=== PATIENT | female | born 1965 | race Caucasian/White ===

== ENCOUNTER 2020-09-18 20:41 | Inpatient (IN) | payer MEDICAID ==
[~2020-09-18] VITALS: Ht 170.2 cm; Wt 48.4 kg
[2020-09-18] MEDS ORDERED: normal saline 1000ML IV soln IV ONE (21:05)
[2020-09-18 21:44] LABS: BASOPHILS % (AUTO) 0.5 % (0-1); EOSINOPHILS # (AUTO) 0.3 X10'3 (0-0.9); EOSINOPHILS % (AUTO) 4.7 % (0-6); HEMATOCRIT 44.9 % (35.0-45.0); HEMOGLOBIN 15.4 g/dl (12.0-16.0); LYMPHOCYTES # (AUTO) 1.2 X10'3 (1.1-4.8); LYMPHOCYTES % (AUTO) 19.5 % (21-51); MEAN CORPUSCULAR HGB CONC 34.3 g/dL (33.0-36.5); MEAN CORPUSCULAR VOLUME 101.9 FL (78-98); MONOCYTES # (AUTO) 0.4 X10'3 (0-0.9); MONOCYTES % (AUTO) 5.7 % (2-12); NEUTROPHILS # (AUTO) 4.3 X10'3 (1.8-7.7); NEUTROPHILS % (AUTO) 69.6 % (42-75); PLATELET COUNT 374 X10'3 (140-440); RED BLOOD COUNT 4.41 X10'6 (4.20-5.60); RED CELL DISTRIBUTION WIDTH 12.8 % (11.5-14.5); WHITE BLOOD COUNT 6.2 X10'3 (4.5-11.0)
[2020-09-18 21:50] LABS: ALANINE AMINOTRANSFERASE 19 U/L (12-78); ALBUMIN 3.6 G/DL (3.4-5.0); ALBUMIN/GLOBULIN RATIO 0.9 (1.1-1.5); ALKALINE PHOSPHATASE 65 IU/L (46-116); ANION GAP 14 (8-16); ASPARTATE AMINO TRANSFERASE 10 U/L (10-37); BILIRUBIN,TOTAL 0.3 MG/DL (0.1-1.0); BLOOD UREA NITROGEN 17 MG/DL (7-18); BUN/CREATININE RATIO 23.6 (6.6-38.0); CALCIUM 8.3 MG/DL (8.5-10.1); CHLORIDE 99 MMOL/L (99-107); CREATININE 0.72 MG/DL (0.40-0.90); GLUCOSE 189 MG/DL (70-104); MAGNESIUM 1.8 MG/DL (1.5-2.4); POTASSIUM 3.7 MMOL/L (3.5-5.1); SODIUM 136 MMOL/L (135-145); TOTAL CARBON DIOXIDE 23.4 MMOL/L (24-32); TOTAL PROTEIN 7.5 G/DL (6.4-8.2); eGFR 85 ML/MIN
[2020-09-18 22:29] LABS: URINE HCG NEGATIVE (NEG)
[2020-09-18 22:38] LABS: COLOR,URINE YELLOW (Yellow); GLUCOSE, URINE NEGATIVE (Neg); KETONES,URINE 40 mg/dl (Neg); LEUKOCYTE ESTERASE ,URINE NEGATIVE (Neg); NITRITES, URINE NEGATIVE (Neg); OCCULT BLOOD,URINE NEGATIVE (Neg); PROTEIN,URINE NEGATIVE (Neg); UROBILINOGEN,URINE 0.2 E.U/dL (0.2-1.0)
[2020-09-18 22:54] LABS: UA COLLECTION TYPE OTHER
[2020-09-18 22:55] LABS: CLARITY,URINE SLIGHTLY CLOUDY (Clear)
[2020-09-18 22:56] LABS: AMORPHOUS PHOSPHATES 4+; BACTERIA,URINE NONE SEEN /HPF (Neg); RBC,URINE NONE SEEN /HPF (0-2); SQUAMOUS EPITHELIAL CELL,UR FEW /LPF (FEW); WBC,URINE 0-4 /HPF (0-4)
[2020-09-18 22:57] LABS: TRANSITIONAL EPI CELLS,URINE FEW /HPF
[2020-09-18] MEDS ORDERED: AMA1T PO (23:11)
[2020-09-18] MEDS ORDERED: CHOL10006 PO (23:11)
[2020-09-18] MEDS ORDERED: RISP0.5T74 PO (23:11)
[2020-09-18] MEDS ORDERED: TOLN30CR TP (23:11)
[2020-09-18] MEDS ORDERED: MULT-381 PO (23:11)
[2020-09-18] MEDS ORDERED: DIAZ10TA4 PO (23:11)
[2020-09-18] MEDS ORDERED: METF500T PO (23:11)
[2020-09-18] MEDS ORDERED: BUSP10TA11 PO (23:11)
[2020-09-18] MEDS ORDERED: SIME125C PO (23:11)
[2020-09-18] MEDS ORDERED: SERT100T PO (23:11)
[2020-09-18] MEDS ORDERED: LEVO25TA2 PO (23:11)
[2020-09-18] MEDS ORDERED: ATOR20TA PO (23:11)
[2020-09-18] MEDS ORDERED: PIOG15TA8 PO (23:11)
[2020-09-18] MEDS ORDERED: OXCA300T16 PO (23:11)
[2020-09-18] MEDS ORDERED: NORE-33 PO (23:11)
--- NOTE | 2020-09-18 23:25 | NUR ---
Patient requesting water or ice chips- encouraged to wait for admission provider who should be coming by soon for patient assessment and discussion of plan of care.
[2020-09-19] MEDS ORDERED: acetaminophen 325mg tablet PO PRN ×2 (00:05)
[2020-09-19] MEDS ORDERED: mag hydrox/Alum hydrox/simeth 30ml oral suspension PO PRN (00:05)
[2020-09-19] MEDS ORDERED: bisacodyl 10mg suppository rectal RC PRN ×2 (00:05→04:30)
[2020-09-19] MEDS ORDERED: potassium Cl 40MEQ/1/2NS 520ml 520 ML IV PRN (00:05)
[2020-09-19] MEDS ORDERED: magnesium 4gm in 100ml NS 100 ML IV PRN (00:05)
[2020-09-19] MEDS: metoprolol tartrate 12.5mg (1/2 tablet) PO SCH ×4 (00:05→19:34)
[2020-09-19] MEDS ORDERED: metoclopramide 5 mg/ml inj IV PRN (00:05)
[2020-09-19] MEDS ORDERED: HYDROcodone/acetaminophen 10/325mg tab PO PRN (00:05)
[2020-09-19] MEDS ORDERED: magnesium Cl slow-release 64mg tablet PO PRN (00:05)
[2020-09-19] MEDS ORDERED: magnesium hydroxide 30ml (MOM) UD suspension PO PRN (00:05)
[2020-09-19] MEDS ORDERED: HYDROcodone/acetaminophen 5mg/325mg tablet PO PRN (00:05)
[2020-09-19] MEDS ORDERED: magnesium 2GM in 50ml NS 50 ML IV PRN (00:05)
[2020-09-19] MEDS ORDERED: potassium Cl 20 mEq SR tablet PO PRN ×2 (00:05)
[2020-09-19] MEDS: normal saline 1000ml 1,000 ML IV SCH ×3 (01:20→20:18)
--- NOTE | 2020-09-19 01:50 | NUR ---
DISCUSSED CONCERN FOR ASPIRATION W/ DR. ANDRADE. OKAY TO GIVE PO MEDS ORDERED PER MD. ATTEMPTED TO ADMINISTER MEDICATION PO AND PT ASPIRATED AND STARTED TO VOMIT. MEDICATION WAS SEEN IN VOMIT, PT DID NOT INGEST MED.
--- NOTE | 2020-09-19 01:58 | NUR ---
PAGER ID: [phone] MESSAGE: [phone] Shey Palmer: Was unable to swallow Lopressor in ER, can I give a one time dose IV? Patient is diabetic can I add hyperglycemia protocol? Jerrica LEO 2230
[2020-09-19 02:00] VITALS: BP 135/77
[2020-09-19] MEDS ORDERED: dextrose ORAL solution 15 GM/59 ML bottle PO PRN ×2 (02:05)
[2020-09-19] MEDS ORDERED: glucagon, human recombinant 1mg kit SUBCUT PRN (02:05)
[2020-09-19] MEDS ORDERED: MESSAGE TO PHARMACY PO ONE (02:05)
[2020-09-19] MEDS ORDERED: dextrose 50%-water 50ml dispensing syringe IV PRN (02:05)
[2020-09-19] MEDS: metoprolol tartrate 1mg/ml inj IV PRN ×2 (02:24→03:26)
[2020-09-19 03:28] LABS: HEMOGLOBIN A1C 6.5 % (4.5-6.2)
--- NOTE | 2020-09-19 04:19 | NUR ---
PAGER ID: [phone] MESSAGE: [phone] Shey Palmer: Patient on 5 L oxygen sating at 88%, need an order. She also came up with a zarate, can we keep it in? Patient is too weak to ambulate or turn. Jerrica LEO [id number]
[2020-09-19] MEDS ORDERED: bisacodyl 10mg suppository rectal RC STA (04:28)
[2020-09-19] MEDS ORDERED: mineral oil 133ml enema RC PRN (04:30)
[2020-09-19] MEDS ORDERED: LIDOcaine 2% 10ml TOPICAL JELLY (Urojet) TP ONE (04:30)
[2020-09-19] MEDS ORDERED: acetaminophen 325mg rectal suppository RC ONE (04:50)
[2020-09-19] MEDS ORDERED: acetaminophen 650mg rectal suppository RC ONE (04:55)
[2020-09-19 04:59] LABS: ABG BASE EXCESS -4.3 mmol/L (-2.0-2.0); ABG HCO3 20.1 mmol/L (22.0-26.0); ABG PCO2 (T) 37.5 mmHg (32.0-45.0); ABG PO2 (T) 65.6 mmHg (75.0-100.0); ALLEN'S TEST POSITIVE; FCOHb 0.2 % (0.0-3.9); FLOW 5 L/min; FMetHb 0.2 % (0.0-1.5); FO2Hb 89.6 % (94-97); PATIENT TEMPERATURE 38.6; TOTAL HEMOGLOBIN 15.7 G/dl (12.0-16.0)
--- NOTE | 2020-09-19 05:51 | NUR ---
END NOC NOTE Patient has come onto the unit with shortness of breath and unable to clear secretions from her throat. MD Padilla was notified of the low saturations even after NT suctioning. ABG was done and patient was put on a High Flow at 10L, patient saturations at 93%. Patient was running a fever of 101.6 deg F in the axillary at the same time, Tylenol suppository was administered. Will continue to monitor patient.
[2020-09-19 06:00] VITALS: BP 131/72
--- NOTE | 2020-09-19 06:13 | NUR ---
DAVID SILVESTRE [phone]
--- NOTE | 2020-09-19 06:49 | NUR ---
Patient in room PCU 3016. I have received report from FELIPA Maldonado and had the opportunity to ask questions and assume patient care.
--- NOTE | 2020-09-19 06:53 | NUR ---
Problems reprioritized. Patient report given, questions answered & plan of care reviewed with Marisela LEO.
[2020-09-19] MEDS: levoTHYROXINE 25mcg tablet PO SCH (07:00)
[2020-09-19] MEDS: pioglitazone 15mg tablet PO SCH (07:41)
[2020-09-19] MEDS: oxcarbazepine 150mg tablet PO SCH ×2 (07:41→19:35)
[2020-09-19] MEDS: busPIRone 5mg tablet PO SCH ×3 (07:41→21:00)
[2020-09-19] MEDS: sertraline 50mg tablet PO SCH (07:41)
[2020-09-19] MEDS: NORETHINDRONE ETHINYL ESTRAD PO SCH (07:41)
[2020-09-19] MEDS: pantoprazole 40 MG vial IV SCH (07:42)
[2020-09-19] MEDS: heparin, porcine 5000 units/ml vial SQ SCH ×2 (07:43→19:25)
[2020-09-19] MEDS: ondansetron/PF 4mg/2ml inj IV PRN (07:45)
[2020-09-19] MEDS ORDERED: diazepam 5mg tablet PO PRN (08:00)
[2020-09-19] MEDS: K and/or MAG REPLACEMENT MC SCH ×2 (08:00→20:00)
--- NOTE | 2020-09-19 08:31 | NUR ---
Noted pt s/p BSS today with ST recs NPO though pt continues on clear liquid diet. D/w dietary and RN recommendation to change diet order to NPO per ST recs. Will continue to follow. Addendum: 09/19/20 at [address] Amended: Links added.
[2020-09-19 09:12] LABS: H PYLORI ANTIBODY POSITIVE (Neg)
[2020-09-19] MEDS: insulin Lispro (HumaLOG) vial - multi-dose SQ SCH ×2 (10:03→19:25)
[2020-09-19 11:00] VITALS: BP 140/63
[2020-09-19] MEDS: levoFLOXACIN-Levaquin 500mg/D5 100 ML IV SCH (12:47)
[2020-09-19 15:00] VITALS: BP 129/68
[2020-09-19 18:00] VITALS: BP 146/65
[2020-09-19] MEDS: atorvastatin 20mg tablet PO SCH (21:00)
[2020-09-19] MEDS ORDERED: temazepam 15mg capsule PO PRN (21:00)
[2020-09-19] MEDS: insulin glargine (Lantus) pen - multi-dose SQ SCH (21:00)
[2020-09-19] MEDS: risperiDONE 0.5mg tablet PO SCH (21:00)
[2020-09-19 22:00] VITALS: BP 148/74
[2020-09-20] VITALS (7 sets, daily range): BP systolic 127–145; BP diastolic 59–87
[2020-09-20 06:05] LABS: BASOPHILS % (AUTO) 0.2 % (0-1); EOSINOPHILS % (AUTO) 0.1 % (0-6); HEMATOCRIT 42.5 % (35.0-45.0); HEMOGLOBIN 14.7 g/dl (12.0-16.0); LYMPHOCYTES # (AUTO) 0.9 X10'3 (1.1-4.8); LYMPHOCYTES % (AUTO) 12.5 % (21-51); MEAN CORPUSCULAR HEMOGLOBIN 35.2 PG (27.0-31.0); MEAN CORPUSCULAR HGB CONC 34.6 g/dL (33.0-36.5); MEAN CORPUSCULAR VOLUME 101.8 FL (78-98); MONOCYTES # (AUTO) 0.5 X10'3 (0-0.9); NEUTROPHILS # (AUTO) 5.8 X10'3 (1.8-7.7); NEUTROPHILS % (AUTO) 80.2 % (42-75); PLATELET COUNT 271 X10'3 (140-440); RED BLOOD COUNT 4.17 X10'6 (4.20-5.60); RED CELL DISTRIBUTION WIDTH 13.2 % (11.5-14.5); WHITE BLOOD COUNT 7.2 X10'3 (4.5-11.0)
[2020-09-20] MEDS: normal saline 1000ml 1,000 ML IV SCH ×2 (06:05→16:18)
--- NOTE | 2020-09-20 06:15 | NUR ---
Patient in room PCU 3016. I have received report from FELIPA Wing and had the opportunity to ask questions and assume patient care.
[2020-09-20 06:18] LABS: ALANINE AMINOTRANSFERASE 14 U/L (12-78); ALBUMIN 2.6 G/DL (3.4-5.0); ALBUMIN/GLOBULIN RATIO 0.6 (1.1-1.5); ALKALINE PHOSPHATASE 48 IU/L (46-116); ANION GAP 20 (8-16); ASPARTATE AMINO TRANSFERASE 14 U/L (10-37); BILIRUBIN,TOTAL 0.5 MG/DL (0.1-1.0); BLOOD UREA NITROGEN 12 MG/DL (7-18); BUN/CREATININE RATIO 16.9 (6.6-38.0); CALCIUM 8.1 MG/DL (8.5-10.1); CHLORIDE 107 MMOL/L (99-107); CREATININE 0.71 MG/DL (0.40-0.90); GLUCOSE 162 MG/DL (70-104); SODIUM 144 MMOL/L (135-145); TOTAL CARBON DIOXIDE 17.4 MMOL/L (24-32); TOTAL PROTEIN 6.7 G/DL (6.4-8.2); eGFR 86 ML/MIN
--- NOTE | 2020-09-20 06:21 | NUR ---
Problems reprioritized. Patient report given, questions answered & plan of care reviewed with FELIPA Antonio.
[2020-09-20 06:24] LABS: POTASSIUM 2.8 MMOL/L (3.5-5.1)
--- NOTE | 2020-09-20 06:40 | NUR ---
Notified Dr Casanova of low serum K+: PAGER ID: [phone] MESSAGE: Spencer Hopper 3016A CRIT K+ 2.8. Will begin replacement protocol. Marisela [phone]
[2020-09-20] MEDS: levoTHYROXINE 25mcg tablet PO SCH (07:00)
--- NOTE | 2020-09-20 07:26 | NUR ---
Paged Dr Casanova re: pt HR: PAGER ID: [phone] MESSAGE: Spencer Hopper 3016A HR 160s. NPO. Failed swallow eval again today. Metoprolol ordered PO. Can we change to IV? Marisela [phone]
[2020-09-20] MEDS: levoFLOXACIN-Levaquin 500mg/D5 100 ML IV SCH (07:31)
[2020-09-20] MEDS: heparin, porcine 5000 units/ml vial SQ SCH ×2 (07:32→19:37)
[2020-09-20] MEDS: pantoprazole 40 MG vial IV SCH (07:32)
[2020-09-20] MEDS: potassium Cl 40MEQ/1/2NS 520ml 520 ML IV PRN ×2 (07:32→13:47)
[2020-09-20] MEDS: pioglitazone 15mg tablet PO SCH (07:33)
[2020-09-20] MEDS: metoprolol tartrate 12.5mg (1/2 tablet) PO SCH ×2 (07:33→19:51)
[2020-09-20] MEDS: NORETHINDRONE ETHINYL ESTRAD PO SCH (07:33)
[2020-09-20] MEDS: busPIRone 5mg tablet PO SCH ×3 (07:33→21:00)
[2020-09-20] MEDS: ondansetron/PF 4mg/2ml inj IV PRN (07:33)
[2020-09-20] MEDS: oxcarbazepine 150mg tablet PO SCH ×2 (07:34→19:51)
[2020-09-20] MEDS: sertraline 50mg tablet PO SCH (07:34)
[2020-09-20] MEDS ORDERED: metoprolol tartrate 1mg/ml inj IV ONE (08:00)
[2020-09-20] MEDS: K and/or MAG REPLACEMENT MC SCH ×2 (08:00→19:52)
[2020-09-20] MEDS: diltiazem-NS 100mg/100ml 100 ML IV SCH ×2 (10:53→23:08)
[2020-09-20] MEDS: levetiracetam inj 500 MG in normal saline 100ml IV soln 95 ML IV SCH ×2 (10:54→19:37)
[2020-09-20] MEDS: albuterol 2.5 MG/3 ML nebule NEB SCH ×4 (11:41→22:54)
[2020-09-20] MEDS: insulin Lispro (HumaLOG) vial - multi-dose SQ SCH (13:46)
[2020-09-20] MEDS ORDERED: iohexol 350MG/ML 100ml bottle IV ONE (14:51)
[2020-09-20] MEDS: metoprolol tartrate 1mg/ml inj IV PRN (16:18)
[2020-09-20] MEDS: lactobacillus rhamnosus 10,000 MMU CELLS/CAPSULE PO SCH (19:51)
[2020-09-20] MEDS: diazepam inj 5 MG/ML inj. IV PRN (20:09)
[2020-09-20] MEDS: risperiDONE 0.5mg tablet PO SCH (21:00)
[2020-09-20] MEDS: insulin glargine (Lantus) pen - multi-dose SQ SCH (21:00)
[2020-09-20] MEDS: atorvastatin 20mg tablet PO SCH (21:00)
[2020-09-20] MEDS ORDERED: LORazepam 2 mg/ml vial IV ONE (22:50)
[2020-09-21] VITALS (9 sets, daily range): BP systolic 120–141; BP diastolic 54–69
[2020-09-21] MEDS: albuterol 2.5 MG/3 ML nebule NEB SCH ×6 (02:30→23:07)
[2020-09-21] MEDS: normal saline 1000ml 1,000 ML IV SCH ×2 (03:48→17:09)
--- NOTE | 2020-09-21 06:10 | NUR ---
Problems reprioritized. Patient report given, questions answered & plan of care reviewed with FELIPA Ugalde.
[2020-09-21 06:28] LABS: BASOPHILS % (AUTO) 0.5 % (0-1); EOSINOPHILS % (AUTO) 0 % (0-6); HEMOGLOBIN 13.4 g/dl (12.0-16.0); LYMPHOCYTES # (AUTO) 0.9 X10'3 (1.1-4.8); LYMPHOCYTES % (AUTO) 17.9 % (21-51); MEAN CORPUSCULAR HGB CONC 34.3 g/dL (33.0-36.5); MEAN PLATELET VOLUME 7.4 FL (7.4-10.4); MONOCYTES # (AUTO) 0.4 X10'3 (0-0.9); MONOCYTES % (AUTO) 8.1 % (2-12); NEUTROPHILS # (AUTO) 3.6 X10'3 (1.8-7.7); NEUTROPHILS % (AUTO) 73.5 % (42-75); PLATELET COUNT 230 X10'3 (140-440); RED BLOOD COUNT 3.83 X10'6 (4.20-5.60); RED CELL DISTRIBUTION WIDTH 13.3 % (11.5-14.5); WHITE BLOOD COUNT 4.9 X10'3 (4.5-11.0)
[2020-09-21 06:39] LABS: ALANINE AMINOTRANSFERASE 13 U/L (12-78); ALBUMIN 2.2 G/DL (3.4-5.0); ALBUMIN/GLOBULIN RATIO 0.5 (1.1-1.5); ALKALINE PHOSPHATASE 45 IU/L (46-116); ANION GAP 13 (8-16); ASPARTATE AMINO TRANSFERASE 6 U/L (10-37); BILIRUBIN,TOTAL 0.5 MG/DL (0.1-1.0); BLOOD UREA NITROGEN 10 MG/DL (7-18); BUN/CREATININE RATIO 13.2 (6.6-38.0); CALCIUM 8.4 MG/DL (8.5-10.1); CHLORIDE 113 MMOL/L (99-107); CREATININE 0.76 MG/DL (0.40-0.90); GLUCOSE 249 MG/DL (70-104); MAGNESIUM 2.2 MG/DL (1.5-2.4); PHOSPHORUS 1.4 MG/DL (2.3-4.5); POTASSIUM 3.7 MMOL/L (3.5-5.1); SODIUM 146 MMOL/L (135-145); TOTAL CARBON DIOXIDE 19.6 MMOL/L (24-32); TOTAL PROTEIN 6.5 G/DL (6.4-8.2); eGFR 80 ML/MIN
[2020-09-21 07:08] LABS: PLATELET ESTIMATE NORMAL; TOTAL CELLS COUNTED 100
--- NOTE | 2020-09-21 07:21 | NUR ---
Patient in room PCU 3011. I have received report from ebony fairchild and had the opportunity to ask questions and assume patient care.
[2020-09-21] MEDS: NORETHINDRONE ETHINYL ESTRAD PO SCH (08:00)
[2020-09-21] MEDS: lactobacillus rhamnosus 10,000 MMU CELLS/CAPSULE PO SCH ×2 (08:00→20:00)
[2020-09-21] MEDS: sertraline 50mg tablet PO SCH (08:00)
[2020-09-21] MEDS: K and/or MAG REPLACEMENT MC SCH ×2 (08:00→20:00)
[2020-09-21] MEDS: metoprolol tartrate 12.5mg (1/2 tablet) PO SCH ×2 (08:00→20:00)
[2020-09-21] MEDS: oxcarbazepine 150mg tablet PO SCH ×2 (08:00→20:00)
[2020-09-21] MEDS: pioglitazone 15mg tablet PO SCH (08:00)
[2020-09-21] MEDS: busPIRone 5mg tablet PO SCH ×3 (08:00→22:42)
[2020-09-21] MEDS: insulin Lispro (HumaLOG) vial - multi-dose SQ SCH (08:37)
[2020-09-21] MEDS: pantoprazole 40 MG vial IV SCH (08:39)
[2020-09-21] MEDS: heparin, porcine 5000 units/ml vial SQ SCH ×2 (08:41→19:59)
[2020-09-21] MEDS: levetiracetam inj 500 MG in normal saline 100ml IV soln 95 ML IV SCH ×2 (08:42→21:35)
[2020-09-21] MEDS: levoTHYROXINE sod inj. 100mcg/5 ml vial IV SCH (08:48)
--- NOTE | 2020-09-21 09:31 | NUR ---
DM consult: Pt with A1c 6.5%, DM education not warranted at this time. Noted that pt has continued to fail BSS with [facility] alternative nutrition following BSS today. Clear liquid diet remains active. D/w RN recommendation to make pt NPO in EMR per [facility]. RN states will discuss EN with MD. IF EN recommend continuous Jevity 1.2 with goal rate of 60 mL/hr to begin at 20 mL/hr and advance by 20 mL Q8H as tolerated with 100 mL water flush Q4H. Will follow closely and monitor for TF consult if within patient's plan of care. Addendum: 09/21/20 at [address] Amended: Links added.
[2020-09-21] MEDS: diazepam inj 5 MG/ML inj. IV PRN ×2 (10:08→16:50)
--- NOTE | 2020-09-21 11:40 | NUR ---
aprox this time texted md solorio no call back yet at [phone].PAGER ID: [phone] MESSAGE: [phone] Verónica Palmer : what's our nutrition plan? failed swallow again today. Aftab LEO [phone]
[2020-09-21] MEDS: piperacillin/tazo 3.375gm/50ml 50 ML IV SCH (17:08)
--- NOTE | 2020-09-21 18:15 | NUR ---
Patient in room PCU 3011. I have received report from Aftab LEO and had the opportunity to ask questions and assume patient care. Patient awake and present for bedside report. Patient denied complaints and had the opportunity to ask questions.
--- NOTE | 2020-09-21 18:35 | NUR ---
Problems reprioritized. Patient report given, questions answered & plan of care reviewed with rei fairchild.
[2020-09-21] MEDS: diltiazem-NS 100mg/100ml 100 ML IV SCH (18:57)
[2020-09-21] MEDS: risperiDONE 0.5mg tablet PO SCH (21:00)
[2020-09-21] MEDS: atorvastatin 20mg tablet PO SCH (21:00)
[2020-09-21] MEDS: insulin glargine (Lantus) pen - multi-dose SQ SCH (21:00)
--- NOTE | 2020-09-21 23:01 | NUR ---
Spoke to Dr. Ovalles on the phone regarding nutrition and Corpak placement and plan for feeding tube on Thursday with Gastrografin on Thursday night. Informed him patient has been NPO since 09/19, was not able to find nutrition plan between now and Thursday. No new orders from Dr. Ovalles, he would like me to follow up with day hospitalist. Will inform day nurse.
[2020-09-22] VITALS (8 sets, daily range): BP systolic 114–145; BP diastolic 57–80
--- NOTE | 2020-09-22 00:01 | NUR ---
Spoke to Dr. Ovalles on the phone regarding patient screaming out and PRN Valium BID has already been given twice on day shift. Dr. Ovalles ordered 5mg IV Valium once now.
[2020-09-22] MEDS ORDERED: diazepam inj 5 MG/ML inj. IV ONE (00:05)
[2020-09-22] MEDS: piperacillin/tazo 3.375gm/50ml 50 ML IV SCH ×3 (00:21→18:00)
[2020-09-22] MEDS: albuterol 2.5 MG/3 ML nebule NEB SCH ×6 (02:58→23:03)
[2020-09-22 03:19] LABS: BASOPHILS % (AUTO) 0.4 % (0-1); EOSINOPHILS % (AUTO) 0.1 % (0-6); HEMATOCRIT 37.8 % (35.0-45.0); HEMOGLOBIN 12.8 g/dl (12.0-16.0); MEAN CORPUSCULAR HEMOGLOBIN 34.8 PG (27.0-31.0); MEAN CORPUSCULAR HGB CONC 33.9 g/dL (33.0-36.5); MEAN CORPUSCULAR VOLUME 102.4 FL (78-98); MEAN PLATELET VOLUME 7.4 FL (7.4-10.4); MONOCYTES # (AUTO) 0.4 X10'3 (0-0.9); MONOCYTES % (AUTO) 9.1 % (2-12); NEUTROPHILS # (AUTO) 3.2 X10'3 (1.8-7.7); NEUTROPHILS % (AUTO) 69.4 % (42-75); PLATELET COUNT 208 X10'3 (140-440); RED BLOOD COUNT 3.69 X10'6 (4.20-5.60); RED CELL DISTRIBUTION WIDTH 13.1 % (11.5-14.5); WHITE BLOOD COUNT 4.6 X10'3 (4.5-11.0)
[2020-09-22 03:34] LABS: ALANINE AMINOTRANSFERASE 9 U/L (12-78); ALBUMIN 2.2 G/DL (3.4-5.0); ALBUMIN/GLOBULIN RATIO 0.5 (1.1-1.5); ALKALINE PHOSPHATASE 44 IU/L (46-116); ANION GAP 16 (8-16); ASPARTATE AMINO TRANSFERASE 6 U/L (10-37); BILIRUBIN,TOTAL 0.6 MG/DL (0.1-1.0); BLOOD UREA NITROGEN 11 MG/DL (7-18); BUN/CREATININE RATIO 14.9 (6.6-38.0); CALCIUM 8.3 MG/DL (8.5-10.1); CHLORIDE 115 MMOL/L (99-107); CREATININE 0.74 MG/DL (0.40-0.90); GLUCOSE 273 MG/DL (70-104); MAGNESIUM 2.2 MG/DL (1.5-2.4); POTASSIUM 3.3 MMOL/L (3.5-5.1); SODIUM 153 MMOL/L (135-145); TOTAL CARBON DIOXIDE 22.2 MMOL/L (24-32); TOTAL PROTEIN 6.6 G/DL (6.4-8.2); eGFR 82 ML/MIN
[2020-09-22 03:42] LABS: PHOSPHORUS 1.2 MG/DL (2.3-4.5)
--- NOTE | 2020-09-22 03:46 | NUR ---
Spoke to Dr. Ovalles on the phone regarding critical value phosphorus 1.2. Dr. Ovalles order phosphorus replacement IV due to NPO status. Dr. Ovalles comfortable using potassium phosphorus since potassium is 3.3.
[2020-09-22] MEDS ORDERED: potassium phosphate inj 30 MMOL in normal saline 500ml IV soln 500 ML IV ONE ×2 (03:50→16:30)
[2020-09-22] MEDS ORDERED: acetaminophen 650mg rectal suppository RC PRN (04:05)
--- NOTE | 2020-09-22 04:55 | NUR ---
Patient did not sleep well this evening. Patient complaining of wanting water and ice. Patient mouth swabbed with sponge and patient coughed on small amount of water from sponge. Oral care provided and suction provided to prevent aspiration whenever she complained of thirst. Re-educated patient regarding aspiration risk. Valium given during the night for anxiety/agitation, relief was short lived, patient calling out most of the shift.
[2020-09-22 05:12] LABS: PLATELET ESTIMATE NORMAL; TOTAL CELLS COUNTED 100
--- NOTE | 2020-09-22 06:22 | NUR ---
Problems reprioritized. Patient report given, questions answered & plan of care reviewed with Aftab LEO.
--- NOTE | 2020-09-22 07:10 | NUR ---
Patient in room PCU 3011. I have received report from Patience LEO and had the opportunity to ask questions and assume patient care.
[2020-09-22] MEDS: normal saline 1000ml 1,000 ML IV SCH (07:39)
[2020-09-22] MEDS: oxcarbazepine 150mg tablet PO SCH ×2 (08:00→20:00)
[2020-09-22] MEDS: busPIRone 5mg tablet PO SCH ×3 (08:00→20:50)
[2020-09-22] MEDS: metoprolol tartrate 12.5mg (1/2 tablet) PO SCH ×2 (08:00→20:00)
[2020-09-22] MEDS: sertraline 50mg tablet PO SCH (08:00)
[2020-09-22] MEDS: pioglitazone 15mg tablet PO SCH (08:00)
[2020-09-22] MEDS: NORETHINDRONE ETHINYL ESTRAD PO SCH (08:00)
[2020-09-22] MEDS: K and/or MAG REPLACEMENT MC SCH ×3 (08:00→20:00)
[2020-09-22] MEDS: lactobacillus rhamnosus 10,000 MMU CELLS/CAPSULE PO SCH ×2 (08:00→20:00)
[2020-09-22] MEDS: insulin Lispro (HumaLOG) vial - multi-dose SQ SCH ×3 (08:05→22:45)
[2020-09-22] MEDS: pantoprazole 40 MG vial IV SCH (08:06)
[2020-09-22] MEDS: heparin, porcine 5000 units/ml vial SQ SCH ×2 (08:07→20:27)
[2020-09-22] MEDS: levetiracetam inj 500 MG in normal saline 100ml IV soln 95 ML IV SCH ×2 (08:08→21:35)
--- NOTE | 2020-09-22 11:00 | NUR ---
MD edward rounded aboutthis time, reviewed labs, fluids and nutrition. ordes received for ivf , discussed possible tf but declined for now. plan to still place peg thursday.
[2020-09-22] MEDS: potassium cl 20mEq in 1/2 NS 1,000 ML IV SCH ×2 (12:59→18:40)
[2020-09-22] MEDS: diltiazem-NS 100mg/100ml 100 ML IV SCH (13:23)
[2020-09-22] MEDS ORDERED: LORazepam 2 mg/ml vial IV PRN (13:40)
[2020-09-22 15:33] LABS: PHOSPHORUS 1.5 MG/DL (2.3-4.5); POTASSIUM 3.2 MMOL/L (3.5-5.1)
[2020-09-22] MEDS ORDERED: potassium Cl 20 mEq SR tablet PO PRN ×2 (16:25)
[2020-09-22] MEDS ORDERED: potassium Cl 40MEQ/1/2NS 520ml 520 ML IV PRN (16:25)
[2020-09-22] MEDS ORDERED: magnesium 4gm in 100ml NS 100 ML IV PRN (16:25)
[2020-09-22] MEDS ORDERED: magnesium Cl slow-release 64mg tablet PO PRN (16:25)
--- NOTE | 2020-09-22 16:27 | NUR ---
PAGER ID: [phone] MESSAGE: [phone] johnny marcos: K and Phos replaced this am. current level K 3.2, Phos 1.5. Do you want Phos replaced? Aftab LEO [phone]
--- NOTE | 2020-09-22 18:19 | NUR ---
Patient in room PCU 3011. I have received report from Aftab LEO and had the opportunity to ask questions and assume patient care. Patient awake for bedside report and had the opportunity to ask questions. Patient denies needs. She had visitors today and has a plush animal and is in good spirits.
--- NOTE | 2020-09-22 18:50 | NUR ---
Paged doctor regarding fluid clarification PAGER ID: [phone] MESSAGE: Re: Shey Palmer [id number] rm 3010 here for aspiration PNA, N/V, tachycardia. In today's note NS has been changed to 1/2 NS due to hypernatremia. No rate specified. Please call to clarify order. Patience [phone].
--- NOTE | 2020-09-22 18:57 | NUR ---
Spoke to Dr. Vogel on the phone regarding fluids change from normal saline to 1/2 normal saline due to hypernatremia. Dr. Vogel ordered 1/2 NS to run at 100mL/hour.
--- NOTE | 2020-09-22 19:35 | NUR ---
Patient pulled out Corpak and 3 PIVs. Fluids stopped. Spoke to Dr. Ovalles regarding Corpak, he is comfortable having it replaced tomorrow afternoon since she is not getting tube feeding at this time. Will restart IVs and fluids.
[2020-09-22] MEDS: sodium chloride 0.45% 1,000 ML IV SCH (20:25)
[2020-09-22] MEDS: risperiDONE 0.5mg tablet PO SCH (20:50)
[2020-09-22] MEDS: atorvastatin 20mg tablet PO SCH (20:50)
[2020-09-22] MEDS: insulin glargine (Lantus) pen - multi-dose SQ SCH (20:51)
[2020-09-23] VITALS (9 sets, daily range): BP systolic 123–154; BP diastolic 68–94
[2020-09-23] MEDS: piperacillin/tazo 3.375gm/50ml 50 ML IV SCH ×3 (01:00→15:50)
[2020-09-23] MEDS: potassium cl 20mEq in 1/2 NS 1,000 ML IV SCH ×2 (02:18→15:55)
[2020-09-23] MEDS: albuterol 2.5 MG/3 ML nebule NEB SCH ×6 (03:06→23:15)
[2020-09-23] MEDS: normal saline 1000ml 1,000 ML IV SCH (03:39)
[2020-09-23] MEDS: sodium chloride 0.45% 1,000 ML IV SCH (05:00)
--- NOTE | 2020-09-23 05:25 | NUR ---
Patient rested comfortably most of shift, awake around 0430. Calling out and saying "I miss my mom".
--- NOTE | 2020-09-23 06:00 | NUR ---
Patient in room PCU 3011. I have received report from Patience LEO and had the opportunity to ask questions and assume patient care.
--- NOTE | 2020-09-23 06:33 | NUR ---
Problems reprioritized. Patient report given, questions answered & plan of care reviewed with Gisel RN. Patient awake for bedside report.
[2020-09-23 06:45] LABS: BASOPHILS % (AUTO) 0.6 % (0-1); EOSINOPHILS % (AUTO) 0.2 % (0-6); HEMATOCRIT 39.4 % (35.0-45.0); HEMOGLOBIN 13.2 g/dl (12.0-16.0); LYMPHOCYTES # (AUTO) 1.1 X10'3 (1.1-4.8); LYMPHOCYTES % (AUTO) 20.4 % (21-51); MEAN CORPUSCULAR HEMOGLOBIN 34.4 PG (27.0-31.0); MEAN CORPUSCULAR HGB CONC 33.6 g/dL (33.0-36.5); MEAN CORPUSCULAR VOLUME 102.6 FL (78-98); MEAN PLATELET VOLUME 7.3 FL (7.4-10.4); MONOCYTES # (AUTO) 0.7 X10'3 (0-0.9); MONOCYTES % (AUTO) 11.7 % (2-12); NEUTROPHILS # (AUTO) 3.7 X10'3 (1.8-7.7); NEUTROPHILS % (AUTO) 67.1 % (42-75); PLATELET COUNT 197 X10'3 (140-440); RED BLOOD COUNT 3.84 X10'6 (4.20-5.60); RED CELL DISTRIBUTION WIDTH 13.4 % (11.5-14.5); WHITE BLOOD COUNT 5.6 X10'3 (4.5-11.0)
[2020-09-23 07:00] LABS: ALANINE AMINOTRANSFERASE 15 U/L (12-78); ALBUMIN 2.3 G/DL (3.4-5.0); ALBUMIN/GLOBULIN RATIO 0.5 (1.1-1.5); ALKALINE PHOSPHATASE 48 IU/L (46-116); ANION GAP 15 (8-16); ASPARTATE AMINO TRANSFERASE 10 U/L (10-37); BILIRUBIN,TOTAL 0.6 MG/DL (0.1-1.0); BLOOD UREA NITROGEN 7 MG/DL (7-18); BUN/CREATININE RATIO 12.3 (6.6-38.0); CALCIUM 8.4 MG/DL (8.5-10.1); CHLORIDE 112 MMOL/L (99-107); CREATININE 0.57 MG/DL (0.40-0.90); GLUCOSE 248 MG/DL (70-104); MAGNESIUM 2.2 MG/DL (1.5-2.4); POTASSIUM 3.8 MMOL/L (3.5-5.1); SODIUM 150 MMOL/L (135-145); TOTAL CARBON DIOXIDE 22.9 MMOL/L (24-32); TOTAL PROTEIN 6.8 G/DL (6.4-8.2); eGFR > 90 ML/MIN
[2020-09-23] MEDS: NORETHINDRONE ETHINYL ESTRAD PO SCH (08:00)
[2020-09-23] MEDS: heparin, porcine 5000 units/ml vial SQ SCH ×2 (08:00→20:55)
[2020-09-23] MEDS: sertraline 50mg tablet PO SCH (08:00)
[2020-09-23] MEDS: K and/or MAG REPLACEMENT MC SCH ×4 (08:00→20:00)
[2020-09-23] MEDS: pioglitazone 15mg tablet PO SCH (08:00)
[2020-09-23] MEDS: oxcarbazepine 150mg tablet PO SCH ×2 (08:00→21:00)
[2020-09-23] MEDS: busPIRone 5mg tablet PO SCH ×3 (08:00→20:54)
[2020-09-23] MEDS: lactobacillus rhamnosus 10,000 MMU CELLS/CAPSULE PO SCH ×2 (08:00→20:54)
[2020-09-23] MEDS: pantoprazole 40 MG vial IV SCH (09:26)
[2020-09-23] MEDS: levetiracetam inj 500 MG in normal saline 100ml IV soln 95 ML IV SCH ×2 (09:26→21:02)
[2020-09-23] MEDS: insulin Lispro (HumaLOG) vial - multi-dose SQ SCH ×2 (09:57→13:42)
[2020-09-23] MEDS: diltiazem-NS 100mg/100ml 100 ML IV SCH (12:11)
[2020-09-23] MEDS: metoprolol tartrate 12.5mg (1/2 tablet) PO SCH ×2 (14:36→20:53)
--- NOTE | 2020-09-23 18:22 | NUR ---
Problems reprioritized. Patient report given, questions answered & plan of care reviewed with Sherice LEO .
[2020-09-23] MEDS ORDERED: diatr meglu/diatrizoate 30ml oral sol.-(3 dose) bottle PO ONE (20:00)
[2020-09-23] MEDS: risperiDONE 0.5mg tablet PO SCH (20:55)
[2020-09-23] MEDS: insulin glargine (Lantus) pen - multi-dose SQ SCH (21:00)
[2020-09-23] MEDS: atorvastatin 20mg tablet PO SCH (21:00)
[2020-09-24] VITALS (15 sets, daily range): BP systolic 115–144; BP diastolic 61–83
[2020-09-24] MEDS: normal saline 1000ml 1,000 ML IV SCH ×2 (00:48→19:39)
[2020-09-24] MEDS: piperacillin/tazo 3.375gm/50ml 50 ML IV SCH ×4 (02:10→23:18)
[2020-09-24] MEDS: potassium cl 20mEq in 1/2 NS 1,000 ML IV SCH ×3 (02:10→17:28)
[2020-09-24] MEDS: diltiazem-NS 100mg/100ml 100 ML IV SCH ×2 (02:11→17:53)
[2020-09-24] MEDS: albuterol 2.5 MG/3 ML nebule NEB SCH ×6 (03:00→22:53)
--- NOTE | 2020-09-24 06:07 | NUR ---
Patient in room PCU 3011. I have received report from Sherice LEO and had the opportunity to ask questions and assume patient care.
--- NOTE | 2020-09-24 06:29 | NUR ---
Problems reprioritized. Patient report given, questions answered & plan of care reviewed with Iman fairchild. PT RESTED WELL THROUGH THE NIGHT, SITTER AT BEDSIDE. SHE EVEN GIGGLED AND SMILED IN HER SLEEP. FULL BED BATH AND HAIR BRUSHING BY SITTER.
[2020-09-24 06:53] LABS: BASOPHILS % (AUTO) 0.7 % (0-1); EOSINOPHILS # (AUTO) 0.1 X10'3 (0-0.9); EOSINOPHILS % (AUTO) 1.3 % (0-6); HEMATOCRIT 40.2 % (35.0-45.0); HEMOGLOBIN 13.7 g/dl (12.0-16.0); LYMPHOCYTES # (AUTO) 1.6 X10'3 (1.1-4.8); LYMPHOCYTES % (AUTO) 29.8 % (21-51); MEAN CORPUSCULAR HEMOGLOBIN 34.8 PG (27.0-31.0); MEAN CORPUSCULAR HGB CONC 34.1 g/dL (33.0-36.5); MEAN CORPUSCULAR VOLUME 101.9 FL (78-98); MEAN PLATELET VOLUME 7.1 FL (7.4-10.4); MONOCYTES # (AUTO) 0.7 X10'3 (0-0.9); MONOCYTES % (AUTO) 12.4 % (2-12); NEUTROPHILS % (AUTO) 55.8 % (42-75); PLATELET COUNT 213 X10'3 (140-440); RED BLOOD COUNT 3.95 X10'6 (4.20-5.60); RED CELL DISTRIBUTION WIDTH 13.4 % (11.5-14.5); WHITE BLOOD COUNT 5.4 X10'3 (4.5-11.0)
[2020-09-24 07:24] LABS: ALANINE AMINOTRANSFERASE 16 U/L (12-78); ALBUMIN 2.2 G/DL (3.4-5.0); ALBUMIN/GLOBULIN RATIO 0.5 (1.1-1.5); ALKALINE PHOSPHATASE 43 IU/L (46-116); ANION GAP 14 (8-16); ASPARTATE AMINO TRANSFERASE 10 U/L (10-37); BILIRUBIN,TOTAL 0.7 MG/DL (0.1-1.0); BLOOD UREA NITROGEN 9 MG/DL (7-18); BUN/CREATININE RATIO 14.8 (6.6-38.0); CALCIUM 8.4 MG/DL (8.5-10.1); CHLORIDE 105 MMOL/L (99-107); CREATININE 0.61 MG/DL (0.40-0.90); GLUCOSE 241 MG/DL (70-104); MAGNESIUM 2.3 MG/DL (1.5-2.4); PHOSPHORUS 2.4 MG/DL (2.3-4.5); POTASSIUM 3.8 MMOL/L (3.5-5.1); SODIUM 144 MMOL/L (135-145); TOTAL CARBON DIOXIDE 25.4 MMOL/L (24-32); TOTAL PROTEIN 6.7 G/DL (6.4-8.2); eGFR > 90 ML/MIN
[2020-09-24] MEDS: NORETHINDRONE ETHINYL ESTRAD PO SCH (08:00)
[2020-09-24] MEDS: K and/or MAG REPLACEMENT MC SCH ×3 (08:00→20:00)
[2020-09-24] MEDS: pantoprazole 40 MG vial IV SCH (08:52)
[2020-09-24] MEDS: levoTHYROXINE sod inj. 100mcg/5 ml vial IV SCH (08:57)
[2020-09-24] MEDS: levetiracetam inj 500 MG in normal saline 100ml IV soln 95 ML IV SCH ×2 (09:02→20:49)
[2020-09-24] MEDS: insulin Lispro (HumaLOG) vial - multi-dose SQ SCH ×2 (09:10→13:39)
[2020-09-24] MEDS: pioglitazone 15mg tablet PO SCH (09:12)
[2020-09-24] MEDS: sertraline 50mg tablet PO SCH (09:13)
[2020-09-24] MEDS: metoprolol tartrate 12.5mg (1/2 tablet) PO SCH ×2 (09:13→20:51)
[2020-09-24] MEDS: oxcarbazepine 150mg tablet PO SCH ×2 (09:15→20:52)
[2020-09-24] MEDS: lactobacillus rhamnosus 10,000 MMU CELLS/CAPSULE PO SCH ×2 (09:15→20:51)
[2020-09-24] MEDS: heparin, porcine 5000 units/ml vial SQ SCH ×2 (09:24→20:00)
[2020-09-24] MEDS: busPIRone 5mg tablet PO SCH ×3 (09:27→20:52)
--- NOTE | 2020-09-24 13:48 | NUR ---
1100 SVN triaged---intubation in another unit
--- NOTE | 2020-09-24 15:04 | NUR ---
[facility] consents and left voicemail.
--- NOTE | 2020-09-24 15:09 | NUR ---
Initial: Pt admit DX acute respiratory failure, bilateral aspiration PNA, hypothyroidism, and hypernatremia per EMR. Hx developmental delay w/ aspiration issues at times though NPO w/ alternative nutrition recommended since 09/20 per [facility] recs. Pt has been NPO since admit w/ initial clear liquid diet still active in EMR; dietary aware of NPO status and RD d/w RN regarding cancelling clear liquid diet given [facility] recs. Pt currently has R NG in place though pending feeding tube placement per DO note; unsure if referring to NG vs PEG for long-term nutrition. LBM 09/24 moderate first BM since admit following 6 days constipation per EMR. Pt currently day 5 NPO not meeting nutrition needs. TF recs below in case to start nutrition support using IBW as no scaled wt this admit. If pt continues to remain NPO without nutrition support then will possibly meet malnutrition criteria. Will continue to monitor for nutrition support needs. Rec: 1. IF EN; continuous Jevity 1.2 at goal rate of 60mL/hr. To provide 1440ml volume, 1728 kcals, 1166ml free water, and 80g protein. 2. IF EN; additional water flush 150mL Q4H 3. IF EN; PALB Q /; daily wts 4. routine bowel care 5. scaled wt this admit 6. nutrition support w/ 5 days prior no nutrition; per [facility] recs since 09/20 Addendum: 09/24/20 at [address] Amended: Links added.
--- NOTE | 2020-09-24 18:13 | NUR ---
Patient in room PCU 3011. I have received report from Gisel LEO and had the opportunity to ask questions and assume patient care.
--- NOTE | 2020-09-24 18:50 | NUR ---
Problems reprioritized. Patient report given, questions answered & plan of care reviewed with Krissy LEO.
[2020-09-24] MEDS: risperiDONE 0.5mg tablet PO SCH (20:51)
[2020-09-24] MEDS: atorvastatin 20mg tablet PO SCH (20:51)
[2020-09-24] MEDS: insulin glargine (Lantus) pen - multi-dose SQ SCH (21:00)
[2020-09-24] MEDS ORDERED: diatr meglu/diatrizoate 30ml oral sol.-(3 dose) bottle NG ONE (22:00)
--- NOTE | 2020-09-24 22:00 | NUR ---
I held humalog and Lantus due to patient's NPO status and planned procedure 09/25, did not feel comfortable administering it at this time.
[2020-09-25] VITALS (8 sets, daily range): BP systolic 106–149; BP diastolic 56–73
[2020-09-25] MEDS: albuterol 2.5 MG/3 ML nebule NEB SCH ×6 (02:36→22:58)
--- NOTE | 2020-09-25 03:50 | NUR ---
Hold am meds for peg tube insertion scheduled for today!
--- NOTE | 2020-09-25 06:15 | NUR ---
Problems reprioritized. Patient report given, questions answered & plan of care reviewed with Shiloh LEO and Lencho LEO.
--- NOTE | 2020-09-25 06:16 | NUR ---
Patient in room PCU 3011. I have received report from Krissy LEO and had the opportunity to ask questions and assume patient care.
--- NOTE | 2020-09-25 06:36 | NUR ---
Patient in room PCU 3011. I have received report from Krissy LEO and had the opportunity to ask questions and assume patient care.
[2020-09-25 07:12] LABS: BASOPHILS % (AUTO) 0.7 % (0-1); EOSINOPHILS # (AUTO) 0.1 X10'3 (0-0.9); EOSINOPHILS % (AUTO) 2.2 % (0-6); HEMATOCRIT 40.8 % (35.0-45.0); HEMOGLOBIN 13.8 g/dl (12.0-16.0); LYMPHOCYTES # (AUTO) 1.1 X10'3 (1.1-4.8); MEAN CORPUSCULAR HEMOGLOBIN 34.6 PG (27.0-31.0); MEAN CORPUSCULAR HGB CONC 33.9 g/dL (33.0-36.5); MONOCYTES # (AUTO) 0.6 X10'3 (0-0.9); MONOCYTES % (AUTO) 11.2 % (2-12); NEUTROPHILS # (AUTO) 3.3 X10'3 (1.8-7.7); NEUTROPHILS % (AUTO) 64.9 % (42-75); PLATELET COUNT 203 X10'3 (140-440); RED CELL DISTRIBUTION WIDTH 13.3 % (11.5-14.5); WHITE BLOOD COUNT 5.1 X10'3 (4.5-11.0)
[2020-09-25 07:38] LABS: ALANINE AMINOTRANSFERASE 15 U/L (12-78); ALBUMIN 2.1 G/DL (3.4-5.0); ALBUMIN/GLOBULIN RATIO 0.5 (1.1-1.5); ALKALINE PHOSPHATASE 45 IU/L (46-116); ANION GAP 17 (8-16); ASPARTATE AMINO TRANSFERASE 11 U/L (10-37); BILIRUBIN,TOTAL 0.6 MG/DL (0.1-1.0); BLOOD UREA NITROGEN 7 MG/DL (7-18); CALCIUM 8.5 MG/DL (8.5-10.1); CHLORIDE 105 MMOL/L (99-107); GLUCOSE 232 MG/DL (70-104); MAGNESIUM 2.2 MG/DL (1.5-2.4); PHOSPHORUS 3.1 MG/DL (2.3-4.5); POTASSIUM 3.7 MMOL/L (3.5-5.1); SODIUM 144 MMOL/L (135-145); TOTAL CARBON DIOXIDE 22.5 MMOL/L (24-32); TOTAL PROTEIN 6.5 G/DL (6.4-8.2); eGFR > 90 ML/MIN
[2020-09-25] MEDS: potassium cl 20mEq in 1/2 NS 1,000 ML IV SCH ×2 (07:56→17:08)
[2020-09-25] MEDS: pantoprazole 40 MG vial IV SCH (07:57)
[2020-09-25] MEDS: levetiracetam inj 500 MG in normal saline 100ml IV soln 95 ML IV SCH ×2 (07:57→21:44)
[2020-09-25] MEDS: lactobacillus rhamnosus 10,000 MMU CELLS/CAPSULE PO SCH (08:00)
[2020-09-25] MEDS: heparin, porcine 5000 units/ml vial SQ SCH ×3 (08:00→21:53)
[2020-09-25] MEDS: K and/or MAG REPLACEMENT MC SCH ×2 (08:00→20:00)
[2020-09-25] MEDS: pioglitazone 15mg tablet PO SCH (08:00)
[2020-09-25] MEDS: busPIRone 5mg tablet PO SCH ×2 (08:00→12:25)
[2020-09-25] MEDS: oxcarbazepine 150mg tablet PO SCH (08:00)
[2020-09-25] MEDS: sertraline 50mg tablet PO SCH (08:00)
[2020-09-25] MEDS: metoprolol tartrate 12.5mg (1/2 tablet) PO SCH (08:00)
[2020-09-25] MEDS: piperacillin/tazo 3.375gm/50ml 50 ML IV SCH ×3 (08:10→23:59)
[2020-09-25] MEDS: insulin Lispro (HumaLOG) vial - multi-dose SQ SCH ×2 (10:15→19:08)
[2020-09-25] MEDS: diltiazem-NS 100mg/100ml 100 ML IV SCH (10:16)
--- NOTE | 2020-09-25 12:31 | NUR ---
Orientee documentation: I have reviewed and agree with all interventions, assessments performed and documented by Lencho RN. [place] Medication Administration: For this medication-pass time frame, all medication were reviewed, dispensed, administered and documented per hospital policy by Lencho RN.
--- NOTE | 2020-09-25 13:49 | NUR ---
MD Vogel. PAGER ID: [phone] MESSAGE: Lencho JAMESON Ext [phone] Pt Sheysaba Palmer rm 301. Noticed some left sided weakness. Would you like me to page the stroke nurse to evaluate please advise
--- NOTE | 2020-09-25 14:05 | NUR ---
Talked to stroke nurse Marcelina and let her know that the patient had developed left side facial droop, slight weakness in left arm, and unable to blink left eye. Also informed Marcelina that we are unaware of patient's last known normal. Marcelina will come in to evaluate patient.
--- NOTE | 2020-09-25 14:09 | NUR ---
Orders for CT head put in per Dr. Vogel.
--- NOTE | 2020-09-25 14:40 | NUR ---
At bedside with patient that has possible new left face weakness and unable to close the left eye. She also on exam has right lower leg weakness. Talking to the pt's caregivers she does not have a hx of cva or facial droop. They did say that she had a droop on the left when she was brought into the ER on 09/18 and possibly even before that date per their staff at [facility].
[2020-09-25] MEDS ORDERED: atorvastatin 20mg tablet NG SCH (14:42)
[2020-09-25] MEDS ORDERED: dextrose ORAL solution 15 GM/59 ML bottle NG PRN ×2 (14:43)
[2020-09-25] MEDS ORDERED: diazepam 5mg tablet NG PRN (14:43)
[2020-09-25] MEDS ORDERED: acetaminophen 325mg/10.15ml oral unit dose solution PO PRN (14:45)
[2020-09-25] MEDS ORDERED: HYDROcodone/acetaminophen 7.5MG/325MG per 15ml UD CUP NG PRN ×2 (14:45→14:50)
[2020-09-25] MEDS ORDERED: acetaminophen 325mg/10.15ml oral unit dose solution NG PRN ×2 (14:45)
[2020-09-25] MEDS ORDERED: HYDROcodone/acetaminophen 7.5MG/325MG per 15ml UD CUP PO PRN ×2 (14:45→14:50)
[2020-09-25] MEDS ORDERED: mag hydrox/Alum hydrox/simeth 30ml oral suspension NG PRN (14:46)
[2020-09-25] MEDS ORDERED: magnesium hydroxide 30ml (MOM) UD suspension NG PRN (14:47)
[2020-09-25] MEDS ORDERED: risperiDONE 0.5mg tablet NG SCH (14:48)
[2020-09-25] MEDS ORDERED: temazepam 15mg capsule NG PRN (14:48)
[2020-09-25] MEDS ORDERED: pioglitazone 15mg tablet NG SCH (14:48)
[2020-09-25] MEDS ORDERED: sertraline 50mg tablet NG SCH (14:48)
[2020-09-25] MEDS ORDERED: POTASSIUM BICARB 20meq eff tab 20 MEQ TABLET.EFF NG PRN ×2 (14:50→14:55)
[2020-09-25] MEDS ORDERED: POTASSIUM BICARB 20meq eff tab 20 MEQ TABLET.EFF PO PRN (14:50)
--- NOTE | 2020-09-25 15:20 | NUR ---
I also was told by the pt's caregivers that about 3 weeks ago she had her right eye swell shut after having a rash/ bite on the right side of her head. She was treated with steroids at that time. I informed the neurologist of that issue. Telemedicine done around 1510 at pt's bedside with her 2 caregivers.
--- NOTE | 2020-09-25 15:27 | NUR ---
I talked to Dr. Vogel at this time regarding the neurologist's recommendations for mri of brain to rule out cva and that the neurologist was calling Dr. Vogel to go over these recommendations.
[2020-09-25] MEDS ORDERED: diazepam inj 5 MG/ML inj. IV ONE (15:50)
--- NOTE | 2020-09-25 15:53 | NUR ---
she is already scheduled for a PEG placement due to not being able to swallow. Addendum: 09/25/20 at 1553 by Marcelina Cerna RN Amended: Links added.
--- NOTE | 2020-09-25 16:46 | NUR ---
1500 SVN not given--pt. receiving other care
--- NOTE | 2020-09-25 17:51 | NUR ---
Pt NPO and workload prevented ability to cover PT's lunch blood sugar of 177.
--- NOTE | 2020-09-25 18:10 | NUR ---
Patient in room PCU 3011. I have received report from Lencho LEO and had the opportunity to ask questions and assume patient care.
--- NOTE | 2020-09-25 18:27 | NUR ---
Problems reprioritized. Patient report given, questions answered & plan of care reviewed with Krissy LEO.
[2020-09-25] MEDS: insulin glargine (Lantus) pen - multi-dose SQ SCH (21:00)
[2020-09-25] MEDS: lactobacillus rhamnosus 10,000 MMU CELLS/CAPSULE NG SCH (21:44)
[2020-09-25] MEDS: metoprolol tartrate 12.5mg (1/2 tablet) NG SCH (21:44)
[2020-09-25] MEDS: busPIRone 5mg tablet NG SCH (21:45)
[2020-09-25] MEDS: oxcarbazepine 150mg tablet NG SCH (21:45)
[2020-09-25] MEDS ORDERED: diatr meglu/diatrizoate 30ml oral sol.-(3 dose) bottle NG ONE (22:00)
[2020-09-26] VITALS (11 sets, daily range): BP systolic 103–138; BP diastolic 47–84
[2020-09-26] MEDS: diltiazem-NS 100mg/100ml 100 ML IV SCH ×2 (00:13→13:30)
[2020-09-26] MEDS: albuterol 2.5 MG/3 ML nebule NEB SCH ×6 (02:39→23:50)
[2020-09-26] MEDS: potassium cl 20mEq in 1/2 NS 1,000 ML IV SCH ×3 (03:58→19:57)
[2020-09-26] MEDS ORDERED: diazepam inj 5 MG/ML inj. IV PRN (05:00)
--- NOTE | 2020-09-26 06:10 | NUR ---
Problems reprioritized. Patient report given, questions answered & plan of care reviewed with Shiloh LEO and Lencho LEO.
--- NOTE | 2020-09-26 06:15 | NUR ---
Patient in room PCU 3017. I have received report from Krissy LEO and had the opportunity to ask questions and assume patient care.
--- NOTE | 2020-09-26 06:15 | NUR ---
large, green liquid bm
[2020-09-26 07:16] LABS: BASOPHILS % (AUTO) 0.3 % (0-1); EOSINOPHILS # (AUTO) 0.2 X10'3 (0-0.9); EOSINOPHILS % (AUTO) 3.1 % (0-6); HEMATOCRIT 39.4 % (35.0-45.0); HEMOGLOBIN 13.3 g/dl (12.0-16.0); LYMPHOCYTES # (AUTO) 0.9 X10'3 (1.1-4.8); LYMPHOCYTES % (AUTO) 16.3 % (21-51); MEAN CORPUSCULAR HEMOGLOBIN 34.6 PG (27.0-31.0); MEAN CORPUSCULAR HGB CONC 33.9 g/dL (33.0-36.5); MEAN CORPUSCULAR VOLUME 102.3 FL (78-98); MEAN PLATELET VOLUME 7.5 FL (7.4-10.4); MONOCYTES # (AUTO) 0.6 X10'3 (0-0.9); MONOCYTES % (AUTO) 11.5 % (2-12); NEUTROPHILS # (AUTO) 3.8 X10'3 (1.8-7.7); NEUTROPHILS % (AUTO) 68.8 % (42-75); PLATELET COUNT 217 X10'3 (140-440); RED BLOOD COUNT 3.85 X10'6 (4.20-5.60); RED CELL DISTRIBUTION WIDTH 13.4 % (11.5-14.5); WHITE BLOOD COUNT 5.5 X10'3 (4.5-11.0)
--- NOTE | 2020-09-26 07:20 | NUR ---
Patient in room PCU 3017. I have received report from Krissy LEO and had the opportunity to ask questions and assume patient care.
[2020-09-26 07:56] LABS: ALANINE AMINOTRANSFERASE 17 U/L (12-78); ALBUMIN/GLOBULIN RATIO 0.5 (1.1-1.5); ALKALINE PHOSPHATASE 46 IU/L (46-116); ANION GAP 14 (8-16); ASPARTATE AMINO TRANSFERASE 11 U/L (10-37); BILIRUBIN,TOTAL 0.4 MG/DL (0.1-1.0); BLOOD UREA NITROGEN 6 MG/DL (7-18); BUN/CREATININE RATIO 11.1 (6.6-38.0); CALCIUM 8.3 MG/DL (8.5-10.1); CHLORIDE 105 MMOL/L (99-107); CHOLESTEROL 182 MG/DL (0-200); CREATININE 0.54 MG/DL (0.40-0.90); GLUCOSE 248 MG/DL (70-104); HDL CHOLESTEROL 60 MG/DL (35-60); LDL CHOLESTEROL 74 MG/DL (50-100); MAGNESIUM 1.9 MG/DL (1.5-2.4); PHOSPHORUS 2.4 MG/DL (2.3-4.5); POTASSIUM 3.7 MMOL/L (3.5-5.1); SODIUM 142 MMOL/L (135-145); TOTAL CARBON DIOXIDE 23.2 MMOL/L (24-32); TOTAL PROTEIN 6.3 G/DL (6.4-8.2); TRIGLYCERIDES 114 MG/DL (20-135); eGFR > 90 ML/MIN
[2020-09-26] MEDS: K and/or MAG REPLACEMENT MC SCH ×2 (08:00→18:43)
[2020-09-26] MEDS: levetiracetam inj 500 MG in normal saline 100ml IV soln 95 ML IV SCH ×2 (08:08→20:01)
[2020-09-26] MEDS: busPIRone 5mg tablet NG SCH ×2 (08:08→13:03)
[2020-09-26] MEDS: oxcarbazepine 150mg tablet NG SCH (08:09)
[2020-09-26] MEDS: metoprolol tartrate 12.5mg (1/2 tablet) NG SCH (08:10)
[2020-09-26] MEDS: lactobacillus rhamnosus 10,000 MMU CELLS/CAPSULE NG SCH (08:10)
[2020-09-26] MEDS: levoTHYROXINE sod inj. 100mcg/5 ml vial IV SCH (08:11)
[2020-09-26] MEDS: piperacillin/tazo 3.375gm/50ml 50 ML IV SCH ×2 (08:11→16:37)
[2020-09-26] MEDS: pantoprazole 40 MG vial IV SCH (08:11)
[2020-09-26] MEDS ORDERED: aspirin 81mg tab.chew PO SCH (08:30)
[2020-09-26] MEDS: insulin Lispro (HumaLOG) vial - multi-dose SQ SCH (09:19)
[2020-09-26 09:31] LABS: PLATELET ESTIMATE NORMAL; TOTAL CELLS COUNTED 100
[2020-09-26] MEDS ORDERED: aspirin 81mg tab.chew NG SCH (11:07)
[2020-09-26] MEDS ORDERED: midazolam 1 mg/ML 2ml injection ONE (13:17)
[2020-09-26] MEDS ORDERED: glucagon, human recombinant 1mg kit ONE (13:17)
[2020-09-26] MEDS ORDERED: LIDOcaine 1%/PF 5ML 10 MG/ML VIAL ONE (13:17)
[2020-09-26] MEDS ORDERED: fentaNYL/PF 50MCG/1 ML 2ML syringe ONE (13:17)
[2020-09-26] MEDS ORDERED: iohexol 300 MG/1 ML 50ml polymer ONE (13:18)
--- NOTE | 2020-09-26 14:36 | NUR ---
TF consult: Noted that pt has had a Corpak in place since 09/21 with the tip in the duodenal bulb per [facility] report however RD was never consulted so TF was never started. Pt has not received any nutrition since day of admit 09/19 (7 days no nutrition). Per RN pt in angio getting PEG placed. TF recommendations in place for once MD okays using PEG. IBW was used to calculate estimated nutrient needs given pt underweight with bed scaled weight. LBM 09/25 with PRN bowel care available. Will continue to follow closely. Rec: 1. Once okay to use PEG, continuous Jevity 1.2 at goal rate of 60mL/hr. To provide 1440 ml total volume/day, 1728 kcal, 1166ml water, and 80 g protein 2. Once TF, additional 100 mL water flush Q4H; monitor serum Na 3. Once TF, PALB q /; daily wts 4. Routine bowel care 5. F/u BSS with ST if planning on advancing PO diet Addendum: 09/26/20 at [address] Amended: Links added.
--- NOTE | 2020-09-26 14:40 | NUR ---
TF consult: Noted that pt has had a Corpak in place since 09/21 with the tip in the duodenal bulb per [facility] report however RD was never consulted so TF was never started. Pt has not received any nutrition since day of admit 09/19 (7 days no nutrition). Per RN pt in angio getting PEG placed. Per MD order okay to use PEG six hours after placement, see TF recommendations below. IBW was used to calculate estimated nutrient needs given pt underweight with bed scaled weight. LBM 09/25 with PRN bowel care available. Will continue to follow closely. Rec: 1. Once okay to use PEG, continuous Jevity 1.2 at goal rate of 60 mL/hr. To provide 1440 ml total volume/day, 1728 kcal, 1166 ml water, and 80 g protein (okay to use PEG six hours after placement per MD order) 2. Once TF, additional 100 mL water flush Q4H; monitor serum Na 3. Once TF, PALB q /; daily wts 4. Routine bowel care 5. F/u BSS with ST if planning on advancing PO diet Addendum: 09/26/20 at [address] Amended: Links added.
[2020-09-26] MEDS ORDERED: acetaminophen 325mg/10.15ml oral unit dose solution PEG PRN (15:26)
[2020-09-26] MEDS ORDERED: dextrose ORAL solution 15 GM/59 ML bottle PEG PRN ×2 (15:27→15:43)
[2020-09-26] MEDS ORDERED: diazepam 5mg tablet PEG PRN (15:28)
[2020-09-26] MEDS ORDERED: HYDROcodone/acetaminophen 7.5MG/325MG per 15ml UD CUP PEG PRN ×2 (15:28)
[2020-09-26] MEDS ORDERED: mag hydrox/Alum hydrox/simeth 30ml oral suspension PEG PRN (15:29)
[2020-09-26] MEDS ORDERED: magnesium hydroxide 30ml (MOM) UD suspension PEG PRN (15:30)
[2020-09-26] MEDS ORDERED: POTASSIUM BICARB 20meq eff tab 20 MEQ TABLET.EFF PEG PRN ×2 (15:32)
--- NOTE | 2020-09-26 18:32 | NUR ---
Problems reprioritized. Patient report given, questions answered & plan of care reviewed with wesley LEO.
[2020-09-26] MEDS: lactobacillus rhamnosus 10,000 MMU CELLS/CAPSULE PEG SCH (19:58)
[2020-09-26] MEDS: heparin, porcine 5000 units/ml vial SQ SCH (19:58)
[2020-09-26] MEDS: busPIRone 5mg tablet PEG SCH (19:59)
[2020-09-26] MEDS: oxcarbazepine 150mg tablet PEG SCH (19:59)
[2020-09-26] MEDS: risperiDONE 0.5mg tablet PEG SCH (20:00)
[2020-09-26] MEDS: temazepam 15mg capsule PEG PRN (20:00)
[2020-09-26] MEDS: metoprolol tartrate 12.5mg (1/2 tablet) PEG SCH (20:00)
[2020-09-26] MEDS: atorvastatin 20mg tablet PEG SCH (20:01)
[2020-09-26] MEDS: insulin glargine (Lantus) pen - multi-dose SQ SCH (20:05)
[2020-09-26] MEDS: insulin regular, human U-100 3ml vial - multi-dose SQ SCH (20:15)
[2020-09-27] MEDS: piperacillin/tazo 3.375gm/50ml 50 ML IV SCH ×3 (00:10→15:46)
[2020-09-27 01:00] VITALS: BP 107/55
[2020-09-27] MEDS: albuterol 2.5 MG/3 ML nebule NEB SCH ×6 (03:59→23:47)
[2020-09-27] MEDS: diltiazem-NS 100mg/100ml 100 ML IV SCH ×2 (05:12→19:25)
[2020-09-27 06:00] VITALS: BP 145/69
[2020-09-27 06:56] LABS: BASOPHILS % (AUTO) 0.3 % (0-1); EOSINOPHILS # (AUTO) 0.2 X10'3 (0-0.9); EOSINOPHILS % (AUTO) 4.3 % (0-6); HEMATOCRIT 40.9 % (35.0-45.0); HEMOGLOBIN 13.7 g/dl (12.0-16.0); LYMPHOCYTES # (AUTO) 0.9 X10'3 (1.1-4.8); LYMPHOCYTES % (AUTO) 15.5 % (21-51); MEAN CORPUSCULAR HEMOGLOBIN 34.3 PG (27.0-31.0); MEAN CORPUSCULAR HGB CONC 33.4 g/dL (33.0-36.5); MEAN CORPUSCULAR VOLUME 102.6 FL (78-98); MEAN PLATELET VOLUME 7.5 FL (7.4-10.4); MONOCYTES # (AUTO) 0.6 X10'3 (0-0.9); MONOCYTES % (AUTO) 9.9 % (2-12); NEUTROPHILS # (AUTO) 4.1 X10'3 (1.8-7.7); PLATELET COUNT 235 X10'3 (140-440); RED BLOOD COUNT 3.98 X10'6 (4.20-5.60); RED CELL DISTRIBUTION WIDTH 13.3 % (11.5-14.5); WHITE BLOOD COUNT 5.8 X10'3 (4.5-11.0)
[2020-09-27 07:08] LABS: ALANINE AMINOTRANSFERASE 27 U/L (12-78); ALBUMIN 2.1 G/DL (3.4-5.0); ALBUMIN/GLOBULIN RATIO 0.5 (1.1-1.5); ALKALINE PHOSPHATASE 61 IU/L (46-116); ANION GAP 8 (8-16); ASPARTATE AMINO TRANSFERASE 28 U/L (10-37); BILIRUBIN,TOTAL 0.3 MG/DL (0.1-1.0); BLOOD UREA NITROGEN 6 MG/DL (7-18); BUN/CREATININE RATIO 11.1 (6.6-38.0); CALCIUM 8.5 MG/DL (8.5-10.1); CHLORIDE 101 MMOL/L (99-107); CREATININE 0.54 MG/DL (0.40-0.90); GLUCOSE 354 MG/DL (70-104); PHOSPHORUS 2.6 MG/DL (2.3-4.5); POTASSIUM 4.1 MMOL/L (3.5-5.1); PREALBUMIN 12.5 MG/DL (19-36); SODIUM 137 MMOL/L (135-145); TOTAL CARBON DIOXIDE 28.3 MMOL/L (24-32); TOTAL PROTEIN 6.6 G/DL (6.4-8.2); eGFR > 90 ML/MIN
[2020-09-27] MEDS: levetiracetam 100mg/ml oral solution 5ml UD cup PEG SCH ×2 (07:34→19:27)
[2020-09-27] MEDS: heparin, porcine 5000 units/ml vial SQ SCH ×2 (07:35→19:28)
[2020-09-27] MEDS: oxcarbazepine 150mg tablet PEG SCH ×2 (07:35→19:27)
[2020-09-27] MEDS: aspirin 81mg tab.chew PEG SCH (07:35)
[2020-09-27] MEDS: pioglitazone 15mg tablet PEG SCH (07:36)
[2020-09-27] MEDS: sertraline 50mg tablet PEG SCH (07:36)
[2020-09-27] MEDS: lactobacillus rhamnosus 10,000 MMU CELLS/CAPSULE PEG SCH ×2 (07:36→19:26)
[2020-09-27] MEDS: busPIRone 5mg tablet PEG SCH ×3 (07:36→19:26)
[2020-09-27] MEDS: K and/or MAG REPLACEMENT MC SCH ×2 (07:37→18:26)
[2020-09-27] MEDS: metoprolol tartrate 12.5mg (1/2 tablet) PEG SCH ×2 (07:37→19:26)
[2020-09-27] MEDS: lansoprazole 15mg solutab PEG SCH (07:37)
[2020-09-27] MEDS: potassium cl 20mEq in 1/2 NS 1,000 ML IV SCH ×2 (07:38→15:45)
[2020-09-27] MEDS: insulin regular, human U-100 3ml vial - multi-dose SQ SCH ×3 (08:37→19:55)
--- NOTE | 2020-09-27 09:26 | NUR ---
Received TC from requesting TF be changed to bolus feedings, see recommendations below. Pt currently tolerating TF at goal rate with GRV WNL. Will continue to follow closely. Rec: 1. Bolus TF via PEG four times a day using Jevity 1.2 with goal rate of 360 mL/bolus. To begin at 110 mL bolus and advance by 50 mL each bolus as tolerated until goal rate is met. Once at goal to provide 1440 mL total volume/day, 1728 kcal, 1166 mL water, and 80 g protein 2. Additional 50 mL water flush before and after each bolus feed; monitor serum Na 3. PALB q /; daily wts 4. Routine bowel care 5. F/u BSS with ST if planning on advancing PO diet HOME BOLUS TF RECS: 1. If pt tolerating bolus feeds at goal rate during admit, recommend continuing with initial recs: Bolus feeding via PEG four times a day using Jevity 1.2 or equivalent with goal rate of 360 mL/bolus. If pt not at goal rate by the time of discharge, advance by 50 mL each bolus feed as tolerated until goal rate is met 2. Additional 50 mL water flush before and after each bolus feed 3. Outpatient RD to adjust TF recommendations as appropriate based on patient's estimated nutrient needs Addendum: 09/27/20 at [address] Amended: Links added.
[2020-09-27 09:55] LABS: TOTAL CELLS COUNTED 100
[2020-09-27 09:56] LABS: PLATELET ESTIMATE NORMAL
[2020-09-27 11:00] VITALS: BP 133/66
[2020-09-27] MEDS: nystatin 500,000 unit/5ML UD oral suspension PO SCH ×2 (13:26→20:24)
[2020-09-27 15:00] VITALS: BP 140/62
[2020-09-27 18:00] VITALS: BP 132/63
[2020-09-27] MEDS: temazepam 15mg capsule PEG PRN (19:26)
[2020-09-27] MEDS: risperiDONE 0.5mg tablet PEG SCH (19:26)
[2020-09-27] MEDS: atorvastatin 20mg tablet PEG SCH (19:27)
[2020-09-27] MEDS: insulin glargine (Lantus) pen - multi-dose SQ SCH (20:18)
[2020-09-27 22:00] VITALS: BP 116/60
[2020-09-28] VITALS (7 sets, daily range): BP systolic 109–153; BP diastolic 48–79
[2020-09-28] MEDS: piperacillin/tazo 3.375gm/50ml 50 ML IV SCH ×3 (00:37→16:08)
--- NOTE | 2020-09-28 02:30 | NUR ---
PATIENT BLOOD SUGAR 34 MG/DL BY ACCUCHECK RECHECHED 34MG/DL ,DW 50% 25ML ADMINISTERED ,BLOOD SUGAR AFTER BOLUS 238MG/DL PATIENT STABLE VITAL SIGNS STABLE,RIGHT FOREARM IV SITE INFILTRATED WARM COMPRESS APPLIED,I TOOK A NEW IV SITE IN LEFT WRIST RUNNING CARDIZEM DRIP @ 7ML/HR PATENT,PATIENT WILL MONITORED.
[2020-09-28] MEDS: albuterol 2.5 MG/3 ML nebule NEB SCH ×6 (03:38→23:45)
--- NOTE | 2020-09-28 03:46 | NUR ---
Just reviewed my charting from Thursday stroke alert and discovered that I forgot to check a box on the gcs section so I edited that neuro assessment. Addendum: 09/28/20 at 0347 by Marcelina Cerna RN Amended: Links added.
[2020-09-28] MEDS: potassium cl 20mEq in 1/2 NS 1,000 ML IV SCH ×2 (05:24→14:25)
[2020-09-28 06:38] LABS: BASOPHILS % (AUTO) 0.3 % (0-1); EOSINOPHILS # (AUTO) 0.1 X10'3 (0-0.9); EOSINOPHILS % (AUTO) 0.8 % (0-6); HEMATOCRIT 40.6 % (35.0-45.0); HEMOGLOBIN 13.9 g/dl (12.0-16.0); LYMPHOCYTES # (AUTO) 0.6 X10'3 (1.1-4.8); LYMPHOCYTES % (AUTO) 7.3 % (21-51); MEAN CORPUSCULAR HEMOGLOBIN 34.5 PG (27.0-31.0); MEAN CORPUSCULAR HGB CONC 34.2 g/dL (33.0-36.5); MEAN CORPUSCULAR VOLUME 100.9 FL (78-98); MEAN PLATELET VOLUME 7.6 FL (7.4-10.4); MONOCYTES # (AUTO) 0.5 X10'3 (0-0.9); MONOCYTES % (AUTO) 6.3 % (2-12); NEUTROPHILS # (AUTO) 6.5 X10'3 (1.8-7.7); NEUTROPHILS % (AUTO) 85.3 % (42-75); PLATELET COUNT 262 X10'3 (140-440); RED BLOOD COUNT 4.02 X10'6 (4.20-5.60); RED CELL DISTRIBUTION WIDTH 13.4 % (11.5-14.5); WHITE BLOOD COUNT 7.6 X10'3 (4.5-11.0)
[2020-09-28 06:54] LABS: PHOSPHORUS 3.6 MG/DL (2.3-4.5)
[2020-09-28] MEDS: K and/or MAG REPLACEMENT MC SCH ×2 (08:00→20:00)
[2020-09-28] MEDS: lactobacillus rhamnosus 10,000 MMU CELLS/CAPSULE PEG SCH ×2 (08:07→22:35)
[2020-09-28] MEDS: aspirin 81mg tab.chew PEG SCH (08:07)
[2020-09-28] MEDS: levetiracetam 100mg/ml oral solution 5ml UD cup PEG SCH ×2 (08:07→22:33)
[2020-09-28] MEDS: oxcarbazepine 150mg tablet PEG SCH ×2 (08:07→22:32)
[2020-09-28] MEDS: nystatin 500,000 unit/5ML UD oral suspension PO SCH ×3 (08:07→22:37)
[2020-09-28] MEDS: busPIRone 5mg tablet PEG SCH ×3 (08:07→22:35)
[2020-09-28] MEDS: lansoprazole 15mg solutab PEG SCH (08:07)
[2020-09-28] MEDS: metoprolol tartrate 12.5mg (1/2 tablet) PEG SCH (08:08)
[2020-09-28] MEDS: sertraline 50mg tablet PEG SCH (08:08)
[2020-09-28] MEDS: pioglitazone 15mg tablet PEG SCH (08:08)
[2020-09-28] MEDS: heparin, porcine 5000 units/ml vial SQ SCH ×2 (08:08→22:31)
[2020-09-28] MEDS: levoTHYROXINE 25mcg tablet PEG SCH (08:08)
[2020-09-28] MEDS: diltiazem-NS 100mg/100ml 100 ML IV SCH (08:09)
[2020-09-28] MEDS ORDERED: metoprolol tartrate 1mg/ml inj IV ONE (08:30)
[2020-09-28] MEDS: insulin regular, human U-100 3ml vial - multi-dose SQ SCH ×3 (08:33→22:27)
[2020-09-28 09:05] LABS: ALANINE AMINOTRANSFERASE 24 U/L (12-78); ALBUMIN 2.1 G/DL (3.4-5.0); ALBUMIN/GLOBULIN RATIO 0.4 (1.1-1.5); ALKALINE PHOSPHATASE 57 IU/L (46-116); ANION GAP 7 (8-16); ASPARTATE AMINO TRANSFERASE 17 U/L (10-37); BILIRUBIN,TOTAL 0.2 MG/DL (0.1-1.0); BLOOD UREA NITROGEN 4 MG/DL (7-18); BUN/CREATININE RATIO 9.5 (6.6-38.0); CALCIUM 8.9 MG/DL (8.5-10.1); CHLORIDE 100 MMOL/L (99-107); CREATININE 0.42 MG/DL (0.40-0.90); GLUCOSE 124 MG/DL (70-104); POTASSIUM 4.4 MMOL/L (3.5-5.1); SODIUM 140 MMOL/L (135-145); TOTAL PROTEIN 6.9 G/DL (6.4-8.2); eGFR > 90 ML/MIN
--- NOTE | 2020-09-28 09:18 | NUR ---
INSTRUCTED BY DR. VILLANUEVA TO REMOVE CORPACK. CORPACK REMOVED WITH NO S/S OF COMPLICATIONS
[2020-09-28] MEDS ORDERED: metoprolol tartrate 12.5mg (1/2 tablet) PEG ONE (09:20)
--- NOTE | 2020-09-28 09:30 | NUR ---
NEW ORDER FOR LOPRESSOR. PT ALREADY RECEIVED 10 MG IV AND 12.5 MG THROUGH GT. HELD SECOND DOSAGE OF 12.5 NOW.
--- NOTE | 2020-09-28 14:14 | NUR ---
BG 454. PAGED KAY DUE TO PROTOCOL STATES TO GIVE 37 UNITS.
--- NOTE | 2020-09-28 18:28 | NUR ---
Patient in room PCU 3017. I have received report from Elda LEO and had the opportunity to ask questions and assume patient care.
[2020-09-28] MEDS: insulin glargine (Lantus) pen - multi-dose SQ SCH (22:30)
[2020-09-28] MEDS: metoprolol tartrate 25mg tablet PEG SCH (22:33)
[2020-09-28] MEDS: atorvastatin 20mg tablet PEG SCH (22:36)
[2020-09-28] MEDS: diltiazem 30mg tablet PEG SCH (22:36)
[2020-09-28] MEDS: risperiDONE 0.5mg tablet PEG SCH (22:36)
[2020-09-29] VITALS (8 sets, daily range): BP systolic 104–125; BP diastolic 55–92
[2020-09-29] MEDS: potassium cl 20mEq in 1/2 NS 1,000 ML IV SCH ×3 (02:10→20:24)
[2020-09-29] MEDS: piperacillin/tazo 3.375gm/50ml 50 ML IV SCH ×2 (02:12→07:23)
[2020-09-29] MEDS: diltiazem 30mg tablet PEG SCH ×4 (02:12→20:25)
[2020-09-29] MEDS: insulin regular, human U-100 3ml vial - multi-dose SQ SCH ×4 (03:49→20:33)
[2020-09-29] MEDS: albuterol 2.5 MG/3 ML nebule NEB SCH ×6 (03:56→22:32)
--- NOTE | 2020-09-29 06:48 | NUR ---
Problems reprioritized. Patient report given, questions answered & plan of care reviewed with Elda LEO.
[2020-09-29 06:55] LABS: BASOPHILS % (AUTO) 0.4 % (0-1); EOSINOPHILS # (AUTO) 0.1 X10'3 (0-0.9); EOSINOPHILS % (AUTO) 2.1 % (0-6); HEMOGLOBIN 13.1 g/dl (12.0-16.0); LYMPHOCYTES # (AUTO) 0.7 X10'3 (1.1-4.8); LYMPHOCYTES % (AUTO) 10.8 % (21-51); MEAN CORPUSCULAR HEMOGLOBIN 34.4 PG (27.0-31.0); MEAN CORPUSCULAR HGB CONC 33.5 g/dL (33.0-36.5); MEAN CORPUSCULAR VOLUME 102.6 FL (78-98); MONOCYTES # (AUTO) 0.3 X10'3 (0-0.9); MONOCYTES % (AUTO) 3.9 % (2-12); NEUTROPHILS # (AUTO) 5.7 X10'3 (1.8-7.7); NEUTROPHILS % (AUTO) 82.8 % (42-75); PLATELET COUNT 293 X10'3 (140-440); RED CELL DISTRIBUTION WIDTH 13.3 % (11.5-14.5); WHITE BLOOD COUNT 6.9 X10'3 (4.5-11.0)
[2020-09-29 07:07] LABS: ALANINE AMINOTRANSFERASE 23 U/L (12-78); ALBUMIN 1.7 G/DL (3.4-5.0); ALBUMIN/GLOBULIN RATIO 0.4 (1.1-1.5); ALKALINE PHOSPHATASE 49 IU/L (46-116); ANION GAP 7 (8-16); ASPARTATE AMINO TRANSFERASE 15 U/L (10-37); BILIRUBIN,TOTAL 0.2 MG/DL (0.1-1.0); BLOOD UREA NITROGEN 12 MG/DL (7-18); BUN/CREATININE RATIO 18.8 (6.6-38.0); CALCIUM 7.9 MG/DL (8.5-10.1); CHLORIDE 100 MMOL/L (99-107); CREATININE 0.64 MG/DL (0.40-0.90); GLUCOSE 367 MG/DL (70-104); PHOSPHORUS 2.4 MG/DL (2.3-4.5); POTASSIUM 4.2 MMOL/L (3.5-5.1); SODIUM 138 MMOL/L (135-145); TOTAL PROTEIN 5.9 G/DL (6.4-8.2); eGFR > 90 ML/MIN
[2020-09-29] MEDS: nystatin 500,000 unit/5ML UD oral suspension PO SCH ×3 (07:23→20:24)
[2020-09-29] MEDS: levetiracetam 100mg/ml oral solution 5ml UD cup PEG SCH ×2 (07:23→20:24)
[2020-09-29] MEDS: lactobacillus rhamnosus 10,000 MMU CELLS/CAPSULE PEG SCH ×2 (07:24→20:25)
[2020-09-29] MEDS: pioglitazone 15mg tablet PEG SCH (07:24)
[2020-09-29] MEDS: lansoprazole 15mg solutab PEG SCH (07:24)
[2020-09-29] MEDS: busPIRone 5mg tablet PEG SCH ×3 (07:24→20:25)
[2020-09-29] MEDS: sertraline 50mg tablet PEG SCH (07:24)
[2020-09-29] MEDS: aspirin 81mg tab.chew PEG SCH (07:24)
[2020-09-29] MEDS: oxcarbazepine 150mg tablet PEG SCH ×2 (07:24→20:27)
[2020-09-29] MEDS: metoprolol tartrate 25mg tablet PEG SCH ×2 (07:25→20:25)
[2020-09-29] MEDS: heparin, porcine 5000 units/ml vial SQ SCH ×2 (07:25→20:26)
[2020-09-29] MEDS: K and/or MAG REPLACEMENT MC SCH ×2 (07:25→20:00)
[2020-09-29] MEDS ORDERED: levoFLOXACIN-Levaquin 500mg/D5 100 ML IV ONE (09:30)
[2020-09-29] MEDS ORDERED: famotidine/PF IV inj 40 MG in normal saline 100ml IV soln 100 ML IV STA (09:30)
[2020-09-29] MEDS ORDERED: diphenhydrAMINE 50 mg/ml inj IV ONE (09:30)
[2020-09-29] MEDS ORDERED: famotidine/PF 10 mg/ml inj IV ONE (09:45)
[2020-09-29] MEDS: methylPREDNISolone sod succ/PF 40mg inj. IV SCH ×2 (10:01→16:18)
--- NOTE | 2020-09-29 11:31 | NUR ---
Reassessment: Pt tolerating bolus TF at goal rate with GRV WNL. LBM 7/2 documented as moderate in size. No changes to nutrition intervention recommendations at this time. Will continue to follow. Rec: 1. Bolus TF via PEG four times a day using Jevity 1.2 with goal rate of 360 mL/bolus. To begin at 110 mL bolus and advance by 50 mL each bolus as tolerated until goal rate is met. Once at goal to provide 1440 mL total volume/day, 1728 kcal, 1166 mL water, and 80 g protein 2. Additional 50 mL water flush before and after each bolus feed; monitor serum Na 3. PALB q M/; daily wts 4. Routine bowel care 5. F/u BSS with ST if planning on advancing PO diet HOME BOLUS TF RECS: 1. Continue with admit recs in view of pt tolerating at goal rate: Bolus feeding via PEG four times a day using Jevity 1.2 or equivalent with goal rate of 360 mL/bolus 2. Additional 50 mL water flush before and after each bolus feed 3. Outpatient RD to adjust TF recommendations as appropriate based on patient's estimated nutrient needs Addendum: 09/29/20 at [address] Amended: Links added.
[2020-09-29] MEDS: diphenhydrAMINE 50 mg/ml inj IV SCH ×2 (13:12→20:25)
[2020-09-29] MEDS: risperiDONE 0.5mg tablet PEG SCH (20:24)
[2020-09-29] MEDS: atorvastatin 20mg tablet PEG SCH (20:24)
[2020-09-29] MEDS: insulin glargine (Lantus) pen - multi-dose SQ SCH (20:41)
[2020-09-30] MEDS: methylPREDNISolone sod succ/PF 40mg inj. IV SCH ×2 (00:43→07:40)
[2020-09-30 02:00] VITALS: BP 120/74
[2020-09-30] MEDS: diphenhydrAMINE 50 mg/ml inj IV SCH ×2 (02:00→07:40)
[2020-09-30] MEDS: diltiazem 30mg tablet PEG SCH ×4 (02:22→19:09)
[2020-09-30] MEDS: insulin regular, human U-100 3ml vial - multi-dose SQ SCH ×4 (02:26→21:18)
[2020-09-30] MEDS: albuterol 2.5 MG/3 ML nebule NEB SCH ×6 (02:46→23:30)
--- NOTE | 2020-09-30 06:38 | NUR ---
Problems reprioritized. Patient report given, questions answered & plan of care reviewed with Sabra Finn. Addendum: 09/30/20 at 0639 by Ruth Loco RN Amended: Links added.
[2020-09-30] MEDS: potassium cl 20mEq in 1/2 NS 1,000 ML IV SCH ×2 (06:40→13:39)
[2020-09-30 06:47] VITALS: BP 124/75
[2020-09-30] MEDS: levetiracetam 100mg/ml oral solution 5ml UD cup PEG SCH ×2 (07:40→19:09)
[2020-09-30] MEDS: aspirin 81mg tab.chew PEG SCH (07:40)
[2020-09-30] MEDS: heparin, porcine 5000 units/ml vial SQ SCH ×2 (07:40→19:08)
[2020-09-30] MEDS: oxcarbazepine 150mg tablet PEG SCH ×2 (07:41→19:10)
[2020-09-30] MEDS: lactobacillus rhamnosus 10,000 MMU CELLS/CAPSULE PEG SCH ×2 (07:41→19:10)
[2020-09-30 07:42] LABS: ALANINE AMINOTRANSFERASE 24 U/L (12-78); ALBUMIN/GLOBULIN RATIO 0.4 (1.1-1.5); ALKALINE PHOSPHATASE 48 IU/L (46-116); ANION GAP 5 (8-16); ASPARTATE AMINO TRANSFERASE 15 U/L (10-37); BILIRUBIN,TOTAL 0.1 MG/DL (0.1-1.0); BLOOD UREA NITROGEN 13 MG/DL (7-18); BUN/CREATININE RATIO 23.2 (6.6-38.0); CALCIUM 8.7 MG/DL (8.5-10.1); CHLORIDE 99 MMOL/L (99-107); CREATININE 0.56 MG/DL (0.40-0.90); GLUCOSE 254 MG/DL (70-104); POTASSIUM 4.5 MMOL/L (3.5-5.1); SODIUM 136 MMOL/L (135-145); TOTAL CARBON DIOXIDE 32.1 MMOL/L (24-32); TOTAL PROTEIN 6.5 G/DL (6.4-8.2); eGFR > 90 ML/MIN
[2020-09-30] MEDS: pioglitazone 15mg tablet PEG SCH (07:42)
[2020-09-30] MEDS: lansoprazole 15mg solutab PEG SCH (07:42)
[2020-09-30] MEDS: levoFLOXACIN-Levaquin 500mg/D5 100 ML IV SCH (07:42)
[2020-09-30] MEDS: busPIRone 5mg tablet PEG SCH ×3 (07:43→19:14)
[2020-09-30] MEDS: sertraline 50mg tablet PEG SCH (07:44)
[2020-09-30] MEDS: metoprolol tartrate 25mg tablet PEG SCH ×2 (07:44→19:09)
[2020-09-30] MEDS: levoTHYROXINE 25mcg tablet PEG SCH (07:45)
[2020-09-30] MEDS: K and/or MAG REPLACEMENT MC SCH ×2 (08:00→18:23)
[2020-09-30] MEDS: nystatin 500,000 unit/5ML UD oral suspension PO SCH ×3 (08:49→19:14)
[2020-09-30 11:40] VITALS: BP 108/84
[2020-09-30 16:02] VITALS: BP 113/56
[2020-09-30 18:00] VITALS: BP 102/58
[2020-09-30] MEDS: risperiDONE 0.5mg tablet PEG SCH (19:09)
[2020-09-30] MEDS: atorvastatin 20mg tablet PEG SCH (19:13)
[2020-09-30] MEDS: insulin glargine (Lantus) pen - multi-dose SQ SCH (21:13)
[2020-09-30 22:03] VITALS: BP 102/58
[2020-10-01 02:00] VITALS: BP 90/76
[2020-10-01] MEDS: potassium cl 20mEq in 1/2 NS 1,000 ML IV SCH ×2 (02:17→12:40)
[2020-10-01] MEDS: diltiazem 30mg tablet PEG SCH ×5 (02:17→23:07)
[2020-10-01] MEDS: albuterol 2.5 MG/3 ML nebule NEB SCH ×5 (03:26→23:00)
[2020-10-01 06:00] VITALS: BP 102/84
[2020-10-01] MEDS: heparin, porcine 5000 units/ml vial SQ SCH ×2 (07:58→19:47)
[2020-10-01] MEDS: lansoprazole 15mg solutab PEG SCH (07:58)
[2020-10-01] MEDS: nystatin 500,000 unit/5ML UD oral suspension PO SCH ×3 (07:58→19:46)
[2020-10-01] MEDS: levoFLOXACIN-Levaquin 500mg/D5 100 ML IV SCH (07:58)
[2020-10-01] MEDS: oxcarbazepine 150mg tablet PEG SCH ×2 (07:59→19:48)
[2020-10-01] MEDS: sertraline 50mg tablet PEG SCH (07:59)
[2020-10-01] MEDS: levetiracetam 100mg/ml oral solution 5ml UD cup PEG SCH ×2 (07:59→19:48)
[2020-10-01] MEDS: lactobacillus rhamnosus 10,000 MMU CELLS/CAPSULE PEG SCH ×2 (07:59→19:46)
[2020-10-01] MEDS: busPIRone 5mg tablet PEG SCH ×3 (07:59→19:48)
[2020-10-01] MEDS: K and/or MAG REPLACEMENT MC SCH ×2 (08:00→19:49)
[2020-10-01] MEDS: metoprolol tartrate 25mg tablet PEG SCH ×2 (08:00→19:46)
[2020-10-01] MEDS: pioglitazone 15mg tablet PEG SCH (08:01)
[2020-10-01] MEDS: aspirin 81mg tab.chew PEG SCH (08:35)
[2020-10-01 09:02] LABS: ALANINE AMINOTRANSFERASE 25 U/L (12-78); ALBUMIN 2.1 G/DL (3.4-5.0); ALBUMIN/GLOBULIN RATIO 0.5 (1.1-1.5); ALKALINE PHOSPHATASE 50 IU/L (46-116); ANION GAP 7 (8-16); ASPARTATE AMINO TRANSFERASE 19 U/L (10-37); BILIRUBIN,TOTAL 0.2 MG/DL (0.1-1.0); BLOOD UREA NITROGEN 15 MG/DL (7-18); BUN/CREATININE RATIO 27.3 (6.6-38.0); CALCIUM 8.3 MG/DL (8.5-10.1); CHLORIDE 100 MMOL/L (99-107); CREATININE 0.55 MG/DL (0.40-0.90); GLUCOSE 76 MG/DL (70-104); POTASSIUM 3.8 MMOL/L (3.5-5.1); PREALBUMIN 18.5 MG/DL (19-36); SODIUM 137 MMOL/L (135-145); TOTAL CARBON DIOXIDE 30.2 MMOL/L (24-32); TOTAL PROTEIN 6.3 G/DL (6.4-8.2); eGFR > 90 ML/MIN
[2020-10-01] MEDS: insulin regular, human U-100 3ml vial - multi-dose SQ SCH ×2 (09:10→20:16)
--- NOTE | 2020-10-01 10:51 | NUR ---
PATIENT DC AT THIS TIME, PATIENT DOES NOT WANT WHEELCHAIR ESCORT OUTSIDE INDICATES HE WILL WALK OUTSIDE, PATIENT DC INSTRUCTIONS GIVEN NO THER NEEDS AT THIS TIME. Addendum: 10/01/20 at 1052 by aSbra LIEBERMAN RN WRONG NOTE
[2020-10-01 11:47] VITALS: BP 109/63
[2020-10-01] MEDS: metroNIDAZOLE-Flagyl 500mg/NS 100ml IVPB IV SCH ×2 (13:28→19:45)
[2020-10-01] MEDS: bismuth subsalicylate 262mg/15ml oral suspension PEG SCH ×3 (13:29→23:07)
[2020-10-01] MEDS ORDERED: furosemide 40mg/4ml inj IV ONE (14:55)
[2020-10-01] MEDS: guaiFENesin/DM 10ml UD oral syrup PEG PRN (15:08)
[2020-10-01 18:00] VITALS: BP 126/65
[2020-10-01] MEDS: pantoprazole 40 MG vial IV SCH (19:45)
[2020-10-01] MEDS: risperiDONE 0.5mg tablet PEG SCH (19:45)
[2020-10-01] MEDS: zinc oxide ointment 30gm tube TP PRN (19:45)
[2020-10-01] MEDS: atorvastatin 20mg tablet PEG SCH (19:48)
[2020-10-01] MEDS: insulin glargine (Lantus) pen - multi-dose SQ SCH (20:12)
[2020-10-01 22:00] VITALS: BP 129/85
[2020-10-01] MEDS: temazepam 15mg capsule PEG PRN (23:07)
[2020-10-02] MEDS: metroNIDAZOLE-Flagyl 500mg/NS 100ml IVPB IV SCH ×4 (01:02→20:13)
[2020-10-02 02:00] VITALS: BP 108/52
[2020-10-02] MEDS: albuterol 2.5 MG/3 ML nebule NEB SCH ×4 (03:24→20:41)
[2020-10-02 06:00] VITALS: BP 112/75
[2020-10-02] MEDS: K and/or MAG REPLACEMENT MC SCH ×3 (08:00→18:26)
[2020-10-02] MEDS: levoTHYROXINE 25mcg tablet PEG SCH (08:23)
[2020-10-02] MEDS: busPIRone 5mg tablet PEG SCH ×3 (08:23→20:14)
[2020-10-02] MEDS: heparin, porcine 5000 units/ml vial SQ SCH ×2 (08:23→20:14)
[2020-10-02] MEDS: guaiFENesin/DM 10ml UD oral syrup PEG PRN (08:23)
[2020-10-02] MEDS: bismuth subsalicylate 262mg/15ml oral suspension PEG SCH ×3 (08:23→20:13)
[2020-10-02] MEDS: diltiazem 30mg tablet PEG SCH ×2 (08:24→14:00)
[2020-10-02] MEDS: lactobacillus rhamnosus 10,000 MMU CELLS/CAPSULE PEG SCH ×2 (08:24→20:14)
[2020-10-02] MEDS: aspirin 81mg tab.chew PEG SCH (08:24)
[2020-10-02] MEDS: levetiracetam 100mg/ml oral solution 5ml UD cup PEG SCH ×2 (08:24→20:13)
[2020-10-02] MEDS: oxcarbazepine 150mg tablet PEG SCH ×2 (08:24→20:15)
[2020-10-02] MEDS: metoprolol tartrate 25mg tablet PEG SCH ×2 (08:25→20:14)
[2020-10-02] MEDS: sertraline 50mg tablet PEG SCH (08:26)
[2020-10-02] MEDS: nystatin 500,000 unit/5ML UD oral suspension PO SCH ×3 (08:27→20:15)
[2020-10-02] MEDS: pioglitazone 15mg tablet PEG SCH (08:27)
[2020-10-02] MEDS: pantoprazole 40 MG vial IV SCH ×2 (08:27→20:13)
[2020-10-02] MEDS ORDERED: potassium Cl 20 mEq SR tablet PO PRN ×2 (09:10)
[2020-10-02] MEDS ORDERED: potassium Cl 40MEQ/1/2NS 520ml 520 ML IV PRN (09:10)
[2020-10-02] MEDS ORDERED: magnesium 4gm in 100ml NS 100 ML IV PRN (09:10)
[2020-10-02] MEDS ORDERED: magnesium Cl slow-release 64mg tablet PO PRN (09:10)
[2020-10-02 09:50] LABS: BASOPHILS % (AUTO) 0.4 % (0-1); EOSINOPHILS # (AUTO) 0.2 X10'3 (0-0.9); EOSINOPHILS % (AUTO) 2.3 % (0-6); HEMATOCRIT 40.9 % (35.0-45.0); HEMOGLOBIN 13.8 g/dl (12.0-16.0); LYMPHOCYTES # (AUTO) 1.6 X10'3 (1.1-4.8); LYMPHOCYTES % (AUTO) 20.9 % (21-51); MEAN CORPUSCULAR HEMOGLOBIN 34.5 PG (27.0-31.0); MEAN CORPUSCULAR HGB CONC 33.8 g/dL (33.0-36.5); MEAN CORPUSCULAR VOLUME 101.8 FL (78-98); MEAN PLATELET VOLUME 7.9 FL (7.4-10.4); MONOCYTES # (AUTO) 0.6 X10'3 (0-0.9); MONOCYTES % (AUTO) 7.6 % (2-12); NEUTROPHILS # (AUTO) 5.2 X10'3 (1.8-7.7); NEUTROPHILS % (AUTO) 68.8 % (42-75); PLATELET COUNT 449 X10'3 (140-440); RED BLOOD COUNT 4.01 X10'6 (4.20-5.60); RED CELL DISTRIBUTION WIDTH 13.7 % (11.5-14.5); WHITE BLOOD COUNT 7.6 X10'3 (4.5-11.0)
[2020-10-02 09:57] LABS: ALBUMIN 2.3 G/DL (3.4-5.0); ANION GAP 6 (8-16); BLOOD UREA NITROGEN 15 MG/DL (7-18); BUN/CREATININE RATIO 23.8 (6.6-38.0); CALCIUM 8.5 MG/DL (8.5-10.1); CHLORIDE 99 MMOL/L (99-107); CREATININE 0.63 MG/DL (0.40-0.90); GLUCOSE 263 MG/DL (70-104); POTASSIUM 3.9 MMOL/L (3.5-5.1); SODIUM 137 MMOL/L (135-145); eGFR > 90 ML/MIN
[2020-10-02] MEDS ORDERED: metoprolol tartrate 1mg/ml inj IV ONE (12:18)
[2020-10-02 12:40] VITALS: BP 118/60
--- NOTE | 2020-10-02 13:31 | NUR ---
MADE CALL OUT TO CONSERVATOR AND LEFT VOICE MESSAGE WE NEED MRI QESTIONAIRE TO BE SIGNED.
[2020-10-02] MEDS: insulin regular, human U-100 3ml vial - multi-dose SQ SCH (14:17)
--- NOTE | 2020-10-02 15:05 | NUR ---
TALKED TO MRI WHO INDICATES LAST TIME PATIENT COULDN'T GET MRI DONE BECAUSE SHE STARTS HAVING SECRETIONS WHEN LAYING COMPLETING FLAT AND SINCE IN THE MRI STUDY SHE WILL BE ALONE, THEY DON'T THINK SHE WILL BE ABLE TO LET THEM KNOW IF SHE NEEDS HELP, WILL DO A FLAT 1 HOUR TRY HERE IN BED AND SEE IF PATIENT TOLERATES SHE WILL BE ABLE TO GO TO MRI, IF NOT MRI RECOMENDEDE A POSSIBLE CTA, ATTEMTED TO CALL CONSERVATOR AND LEFT VOICE MESSAGE.
--- NOTE | 2020-10-02 15:22 | NUR ---
ATTEMPTED TO CALL CONSERVATOR AND SHE ANSWERED THE PHONE ORIENTED ABOUT MRI BEING DONE TO THE PATIENT AND EXPLAINED POSSIBBILITY OF PATIENT NOT ABLE TO LAY FLAT, STARTED TO LET HER KNOW THAT I NEEDED TO ASK A FEW QUESTIONS ABOUT PATIENTSO I COULD FILL OUT MRI QUESTIONARE AND WHEN I STARTED WITH THE FIRST QUESTION SHE INDICATED SHE DID NOT KNOW PATIENT HISTORY, I TOLD HER TO GIVE ME A SECOND TO ASK MY CHARGE NURSE AND WHEN I GOT BACK TO THE PHONE SHE HAD HANG UP, ATTEMTED TO CALL 3 TIMES AFTER THAT AND RECEIVED NO ANSWER. WILL NEED SENIOR CARE TO CALL AND ANSWER QUESTION AND LATER GO THROUGH WITH CONSERVATOR TO BE ABLE TO SIGN QUESTIONAIRE.
[2020-10-02 17:24] VITALS: BP 116/47
[2020-10-02] MEDS ORDERED: LORazepam 2 mg/ml vial IV ONE (17:50)
[2020-10-02] MEDS: temazepam 15mg capsule PEG PRN (20:14)
[2020-10-02] MEDS: risperiDONE 0.5mg tablet PEG SCH (20:15)
[2020-10-02] MEDS: atorvastatin 20mg tablet PEG SCH (20:15)
[2020-10-02] MEDS: insulin glargine (Lantus) pen - multi-dose SQ SCH (20:59)
[2020-10-02] MEDS ORDERED: diltiazem 30mg tablet PEG SCH (21:00)
[2020-10-02 23:00] VITALS: BP 109/51
[2020-10-03] MEDS: bismuth subsalicylate 262mg/15ml oral suspension PEG SCH ×4 (01:09→20:05)
[2020-10-03] MEDS: metroNIDAZOLE-Flagyl 500mg/NS 100ml IVPB IV SCH ×4 (01:09→20:08)
[2020-10-03 02:00] VITALS: BP 98/58
[2020-10-03] MEDS: albuterol 2.5 MG/3 ML nebule NEB SCH ×4 (02:58→20:10)
[2020-10-03 06:48] VITALS: BP 101/47
[2020-10-03 06:55] LABS: BASOPHILS % (AUTO) 0.5 % (0-1); EOSINOPHILS # (AUTO) 0.2 X10'3 (0-0.9); EOSINOPHILS % (AUTO) 3.5 % (0-6); HEMATOCRIT 36.9 % (35.0-45.0); HEMOGLOBIN 12.7 g/dl (12.0-16.0); LYMPHOCYTES # (AUTO) 1.5 X10'3 (1.1-4.8); LYMPHOCYTES % (AUTO) 25.1 % (21-51); MEAN CORPUSCULAR HEMOGLOBIN 34.5 PG (27.0-31.0); MEAN CORPUSCULAR HGB CONC 34.5 g/dL (33.0-36.5); MEAN CORPUSCULAR VOLUME 99.8 FL (78-98); MEAN PLATELET VOLUME 7.9 FL (7.4-10.4); MONOCYTES # (AUTO) 0.5 X10'3 (0-0.9); MONOCYTES % (AUTO) 7.6 % (2-12); NEUTROPHILS # (AUTO) 3.9 X10'3 (1.8-7.7); NEUTROPHILS % (AUTO) 63.3 % (42-75); PLATELET COUNT 414 X10'3 (140-440); RED BLOOD COUNT 3.69 X10'6 (4.20-5.60); RED CELL DISTRIBUTION WIDTH 13.8 % (11.5-14.5); WHITE BLOOD COUNT 6.1 X10'3 (4.5-11.0)
[2020-10-03 07:28] LABS: ALANINE AMINOTRANSFERASE 29 U/L (12-78); ALBUMIN 2.2 G/DL (3.4-5.0); ALBUMIN/GLOBULIN RATIO 0.6 (1.1-1.5); ALKALINE PHOSPHATASE 52 IU/L (46-116); ANION GAP 9 (8-16); ASPARTATE AMINO TRANSFERASE 19 U/L (10-37); BILIRUBIN,TOTAL 0.2 MG/DL (0.1-1.0); BLOOD UREA NITROGEN 16 MG/DL (7-18); BUN/CREATININE RATIO 30.8 (6.6-38.0); CALCIUM 8.5 MG/DL (8.5-10.1); CHLORIDE 105 MMOL/L (99-107); CREATININE 0.52 MG/DL (0.40-0.90); GLUCOSE 154 MG/DL (70-104); MAGNESIUM 2.5 MG/DL (1.5-2.4); PHOSPHORUS 2.8 MG/DL (2.3-4.5); POTASSIUM 3.9 MMOL/L (3.5-5.1); SODIUM 144 MMOL/L (135-145); TOTAL CARBON DIOXIDE 29.6 MMOL/L (24-32); TOTAL PROTEIN 6.2 G/DL (6.4-8.2); eGFR > 90 ML/MIN
[2020-10-03] MEDS: oxcarbazepine 150mg tablet PEG SCH ×2 (07:48→20:05)
[2020-10-03] MEDS: pioglitazone 15mg tablet PEG SCH (07:48)
[2020-10-03] MEDS: metoprolol tartrate 25mg tablet PEG SCH ×2 (07:48→20:06)
[2020-10-03] MEDS: busPIRone 5mg tablet PEG SCH ×3 (07:49→20:16)
[2020-10-03] MEDS: aspirin 81mg tab.chew PEG SCH (07:49)
[2020-10-03] MEDS: diltiazem 30mg tablet PEG SCH ×3 (07:49→20:17)
[2020-10-03] MEDS: sertraline 50mg tablet PEG SCH (07:49)
[2020-10-03] MEDS: levetiracetam 100mg/ml oral solution 5ml UD cup PEG SCH ×2 (07:50→20:05)
[2020-10-03] MEDS: lactobacillus rhamnosus 10,000 MMU CELLS/CAPSULE PEG SCH ×2 (07:50→20:06)
[2020-10-03] MEDS: nystatin 500,000 unit/5ML UD oral suspension PO SCH ×3 (07:51→20:16)
[2020-10-03] MEDS: guaiFENesin/DM 10ml UD oral syrup PEG PRN (07:51)
[2020-10-03] MEDS: pantoprazole 40 MG vial IV SCH ×2 (07:51→20:06)
[2020-10-03] MEDS: heparin, porcine 5000 units/ml vial SQ SCH ×2 (07:51→20:06)
[2020-10-03] MEDS: K and/or MAG REPLACEMENT MC SCH ×4 (08:00→18:18)
[2020-10-03] MEDS: insulin regular, human U-100 3ml vial - multi-dose SQ SCH ×3 (09:15→20:03)
[2020-10-03 11:00] LABS: TOTAL CELLS COUNTED 100
--- NOTE | 2020-10-03 11:00 | NUR ---
Reassessment: Pt tolerating bolus TF at goal rate with GRV WNL. LBM 09/30 documented as moderate in size. PRN bowel care and prokinetic agent available. No changes to nutrition intervention recommendations at this time. Will continue to follow. Rec: 1. Bolus TF via PEG four times a day using Jevity 1.2 with goal rate of 360 mL/bolus. To begin at 110 mL bolus and advance by 50 mL each bolus as tolerated until goal rate is met. Once at goal to provide 1440 mL total volume/day, 1728 kcal, 1166 mL water, and 80 g protein 2. Additional 50 mL water flush before and after each bolus feed; monitor serum Na 3. PALB q /; daily wts 4. Routine bowel care 5. F/u BSS with ST if planning on advancing PO diet HOME BOLUS TF RECS: 1. Continue with admit recs in view of pt tolerating at goal rate: Bolus feeding via PEG four times a day using Jevity 1.2 or equivalent with goal rate of 360 mL/bolus 2. Additional 50 mL water flush before and after each bolus feed 3. Outpatient RD to adjust TF recommendations as appropriate based on patient's estimated nutrient needs Addendum: 10/03/20 at [address] Amended: Links added.
[2020-10-03 11:01] LABS: PLATELET ESTIMATE NORMAL
[2020-10-03 13:56] VITALS: BP 115/62
[2020-10-03] MEDS: acetaminophen 325mg/10.15ml oral unit dose solution PEG PRN (14:46)
[2020-10-03 15:29] VITALS: BP 115/62
[2020-10-03 18:00] VITALS: BP 104/69
[2020-10-03] MEDS: insulin glargine (Lantus) pen - multi-dose SQ SCH (20:00)
[2020-10-03] MEDS: risperiDONE 0.5mg tablet PEG SCH (20:05)
[2020-10-03] MEDS: atorvastatin 20mg tablet PEG SCH (20:05)
[2020-10-03] MEDS: temazepam 15mg capsule PEG PRN (20:23)
[2020-10-03 22:00] VITALS: BP 93/49
[2020-10-04] VITALS (7 sets, daily range): BP systolic 90–121; BP diastolic 61–81
[2020-10-04] MEDS: bismuth subsalicylate 262mg/15ml oral suspension PEG SCH ×4 (01:54→19:55)
[2020-10-04] MEDS: diltiazem 30mg tablet PEG SCH ×4 (01:54→19:57)
[2020-10-04] MEDS: metroNIDAZOLE-Flagyl 500mg/NS 100ml IVPB IV SCH ×4 (01:54→19:55)
[2020-10-04] MEDS: albuterol 2.5 MG/3 ML nebule NEB SCH ×4 (03:58→20:31)
--- NOTE | 2020-10-04 06:28 | NUR ---
Patient in room PCU 3023. I have received report from FELIPA MOORE and had the opportunity to ask questions and assume patient care.
[2020-10-04 06:51] LABS: ALANINE AMINOTRANSFERASE 25 U/L (12-78); ALBUMIN 2.2 G/DL (3.4-5.0); ALBUMIN/GLOBULIN RATIO 0.5 (1.1-1.5); ALKALINE PHOSPHATASE 52 IU/L (46-116); ANION GAP 8 (8-16); ASPARTATE AMINO TRANSFERASE 18 U/L (10-37); BILIRUBIN,TOTAL 0.3 MG/DL (0.1-1.0); BLOOD UREA NITROGEN 17 MG/DL (7-18); BUN/CREATININE RATIO 27.9 (6.6-38.0); CALCIUM 8.3 MG/DL (8.5-10.1); CHLORIDE 105 MMOL/L (99-107); CREATININE 0.61 MG/DL (0.40-0.90); GLUCOSE 195 MG/DL (70-104); MAGNESIUM 2.3 MG/DL (1.5-2.4); PHOSPHORUS 3.8 MG/DL (2.3-4.5); POTASSIUM 4.3 MMOL/L (3.5-5.1); PREALBUMIN 22.1 MG/DL (19-36); SODIUM 142 MMOL/L (135-145); TOTAL CARBON DIOXIDE 29.2 MMOL/L (24-32); TOTAL PROTEIN 6.3 G/DL (6.4-8.2); eGFR > 90 ML/MIN
[2020-10-04 06:52] LABS: BASOPHILS % (AUTO) 0.5 % (0-1); EOSINOPHILS # (AUTO) 0.3 X10'3 (0-0.9); EOSINOPHILS % (AUTO) 4.1 % (0-6); HEMATOCRIT 36.7 % (35.0-45.0); HEMOGLOBIN 12.5 g/dl (12.0-16.0); LYMPHOCYTES # (AUTO) 1.5 X10'3 (1.1-4.8); LYMPHOCYTES % (AUTO) 21.2 % (21-51); MEAN CORPUSCULAR HEMOGLOBIN 34.9 PG (27.0-31.0); MEAN CORPUSCULAR HGB CONC 33.9 g/dL (33.0-36.5); MEAN CORPUSCULAR VOLUME 102.7 FL (78-98); MONOCYTES # (AUTO) 0.7 X10'3 (0-0.9); NEUTROPHILS # (AUTO) 4.6 X10'3 (1.8-7.7); NEUTROPHILS % (AUTO) 64.2 % (42-75); PLATELET COUNT 390 X10'3 (140-440); RED BLOOD COUNT 3.57 X10'6 (4.20-5.60); RED CELL DISTRIBUTION WIDTH 14.1 % (11.5-14.5); WHITE BLOOD COUNT 7.1 X10'3 (4.5-11.0)
[2020-10-04] MEDS: metoprolol tartrate 25mg tablet PEG SCH ×2 (08:00→19:56)
[2020-10-04] MEDS: K and/or MAG REPLACEMENT MC SCH ×4 (08:00→19:58)
[2020-10-04] MEDS: pantoprazole 40 MG vial IV SCH ×2 (09:12→19:56)
[2020-10-04] MEDS: pioglitazone 15mg tablet PEG SCH (09:14)
[2020-10-04] MEDS: busPIRone 5mg tablet PEG SCH ×3 (09:14→20:41)
[2020-10-04] MEDS: levoTHYROXINE 25mcg tablet PEG SCH (09:14)
[2020-10-04] MEDS: lactobacillus rhamnosus 10,000 MMU CELLS/CAPSULE PEG SCH ×2 (09:15→19:57)
[2020-10-04] MEDS: levetiracetam 100mg/ml oral solution 5ml UD cup PEG SCH ×2 (09:17→19:55)
[2020-10-04] MEDS: sertraline 50mg tablet PEG SCH (09:31)
[2020-10-04] MEDS: oxcarbazepine 150mg tablet PEG SCH ×2 (09:31→19:56)
[2020-10-04] MEDS: nystatin 500,000 unit/5ML UD oral suspension PO SCH ×3 (09:31→20:40)
[2020-10-04] MEDS: aspirin 81mg tab.chew PEG SCH (09:40)
[2020-10-04] MEDS: insulin regular, human U-100 3ml vial - multi-dose SQ SCH ×3 (10:01→21:02)
[2020-10-04] MEDS: heparin, porcine 5000 units/ml vial SQ SCH ×2 (10:02→19:55)
[2020-10-04] MEDS: PEG 400/HYPROMELLOSE/GLYCERIN 15ml bottle EACHEYE SCH ×3 (11:43→20:43)
--- NOTE | 2020-10-04 17:59 | NUR ---
Orientee documentation: I have reviewed and agree with all interventions, assessments performed and documented by FELIPA Alejo.
--- NOTE | 2020-10-04 18:26 | NUR ---
Problems reprioritized. Patient report given, questions answered & plan of care reviewed with FELIPA ANTONIO.
[2020-10-04] MEDS: atorvastatin 20mg tablet PEG SCH (20:40)
[2020-10-04] MEDS: risperiDONE 0.5mg tablet PEG SCH (20:43)
[2020-10-04] MEDS: insulin glargine (Lantus) pen - multi-dose SQ SCH (20:59)
[2020-10-05] MEDS: PEG 400/HYPROMELLOSE/GLYCERIN 15ml bottle EACHEYE SCH ×6 (00:14→20:08)
[2020-10-05] MEDS: metroNIDAZOLE-Flagyl 500mg/NS 100ml IVPB IV SCH ×4 (01:28→20:08)
[2020-10-05] MEDS: bismuth subsalicylate 262mg/15ml oral suspension PEG SCH ×4 (01:28→20:12)
[2020-10-05] MEDS: diltiazem 30mg tablet PEG SCH ×4 (01:28→20:09)
[2020-10-05 02:00] VITALS: BP 121/65
[2020-10-05] MEDS: insulin regular, human U-100 3ml vial - multi-dose SQ SCH ×4 (02:54→22:11)
[2020-10-05] MEDS: albuterol 2.5 MG/3 ML nebule NEB SCH ×4 (03:00→20:14)
[2020-10-05 06:00] VITALS: BP 123/65
--- NOTE | 2020-10-05 06:08 | NUR ---
Problems reprioritized. Patient report given, questions answered & plan of care reviewed with Earnestine RN.
--- NOTE | 2020-10-05 06:33 | NUR ---
Patient in room PCU 3023. I have received report from FELIPA ANTONIO, and had the opportunity to ask questions and assume patient care.
[2020-10-05 07:07] LABS: BASOPHILS # (AUTO) 0.1 X10'3 (0-0.2); BASOPHILS % (AUTO) 0.6 % (0-1); EOSINOPHILS # (AUTO) 0.2 X10'3 (0-0.9); EOSINOPHILS % (AUTO) 1.9 % (0-6); HEMOGLOBIN 11.6 g/dl (12.0-16.0); LYMPHOCYTES # (AUTO) 1.4 X10'3 (1.1-4.8); LYMPHOCYTES % (AUTO) 16.6 % (21-51); MEAN CORPUSCULAR HEMOGLOBIN 34.6 PG (27.0-31.0); MEAN CORPUSCULAR HGB CONC 34.2 g/dL (33.0-36.5); MEAN CORPUSCULAR VOLUME 101.4 FL (78-98); MEAN PLATELET VOLUME 7.7 FL (7.4-10.4); MONOCYTES # (AUTO) 0.9 X10'3 (0-0.9); MONOCYTES % (AUTO) 10.1 % (2-12); NEUTROPHILS # (AUTO) 6.2 X10'3 (1.8-7.7); NEUTROPHILS % (AUTO) 70.8 % (42-75); PLATELET COUNT 360 X10'3 (140-440); RED BLOOD COUNT 3.36 X10'6 (4.20-5.60); RED CELL DISTRIBUTION WIDTH 13.7 % (11.5-14.5); WHITE BLOOD COUNT 8.7 X10'3 (4.5-11.0)
[2020-10-05 07:36] LABS: ALANINE AMINOTRANSFERASE 27 U/L (12-78); ALBUMIN 2.1 G/DL (3.4-5.0); ALBUMIN/GLOBULIN RATIO 0.5 (1.1-1.5); ALKALINE PHOSPHATASE 49 IU/L (46-116); ANION GAP 8 (8-16); ASPARTATE AMINO TRANSFERASE 15 U/L (10-37); BILIRUBIN,TOTAL 0.3 MG/DL (0.1-1.0); BLOOD UREA NITROGEN 15 MG/DL (7-18); BUN/CREATININE RATIO 30.6 (6.6-38.0); CHLORIDE 101 MMOL/L (99-107); CREATININE 0.49 MG/DL (0.40-0.90); GLUCOSE 99 MG/DL (70-104); MAGNESIUM 2.1 MG/DL (1.5-2.4); PHOSPHORUS 3.3 MG/DL (2.3-4.5); POTASSIUM 3.8 MMOL/L (3.5-5.1); SODIUM 138 MMOL/L (135-145); TOTAL PROTEIN 6.1 G/DL (6.4-8.2); eGFR > 90 ML/MIN
[2020-10-05] MEDS: K and/or MAG REPLACEMENT MC SCH ×4 (08:00→20:00)
[2020-10-05] MEDS: levetiracetam 100mg/ml oral solution 5ml UD cup PEG SCH ×2 (08:36→20:11)
[2020-10-05] MEDS: nystatin 500,000 unit/5ML UD oral suspension PO SCH ×3 (08:36→20:37)
[2020-10-05] MEDS: heparin, porcine 5000 units/ml vial SQ SCH ×2 (08:37→20:10)
[2020-10-05] MEDS: oxcarbazepine 150mg tablet PEG SCH ×2 (08:37→20:10)
[2020-10-05] MEDS: sertraline 50mg tablet PEG SCH (08:37)
[2020-10-05] MEDS: lactobacillus rhamnosus 10,000 MMU CELLS/CAPSULE PEG SCH ×2 (08:38→20:12)
[2020-10-05] MEDS: busPIRone 5mg tablet PEG SCH ×3 (08:38→20:37)
[2020-10-05] MEDS: aspirin 81mg tab.chew PEG SCH (08:38)
[2020-10-05] MEDS: pioglitazone 15mg tablet PEG SCH (08:38)
[2020-10-05] MEDS: metoprolol tartrate 25mg tablet PEG SCH ×2 (08:39→20:10)
[2020-10-05] MEDS: pantoprazole 40 MG vial IV SCH ×2 (08:41→20:09)
[2020-10-05 11:00] VITALS: BP 108/63
[2020-10-05 15:00] VITALS: BP 103/56
[2020-10-05 18:00] VITALS: BP 107/55
--- NOTE | 2020-10-05 18:20 | NUR ---
Patient in room PCU 3023. I have received report from FELIPA Armenta and had the opportunity to ask questions and assume patient care.
--- NOTE | 2020-10-05 18:45 | NUR ---
Problems reprioritized. Patient report given, questions answered & plan of care reviewed with FELIPA Sharif.
--- NOTE | 2020-10-05 18:46 | NUR ---
Orientee documentation: I have reviewed and agree with all interventions, assessments performed and documented by FELIPA Alejo.
[2020-10-05] MEDS: atorvastatin 20mg tablet PEG SCH (20:37)
[2020-10-05] MEDS: risperiDONE 0.5mg tablet PEG SCH (20:38)
[2020-10-05] MEDS: insulin glargine (Lantus) pen - multi-dose SQ SCH (21:57)
[2020-10-05 22:00] VITALS: BP 112/58
[2020-10-06] MEDS: PEG 400/HYPROMELLOSE/GLYCERIN 15ml bottle EACHEYE SCH ×7 (00:12→23:04)
[2020-10-06] MEDS: metroNIDAZOLE-Flagyl 500mg/NS 100ml IVPB IV SCH ×4 (01:34→21:10)
[2020-10-06] MEDS: diltiazem 30mg tablet PEG SCH ×4 (01:34→20:00)
[2020-10-06] MEDS: bismuth subsalicylate 262mg/15ml oral suspension PEG SCH ×4 (01:35→21:15)
[2020-10-06 02:00] VITALS: BP 102/47
[2020-10-06] MEDS: albuterol 2.5 MG/3 ML nebule NEB SCH ×4 (02:24→20:44)
[2020-10-06 06:00] VITALS: BP 109/48
--- NOTE | 2020-10-06 06:19 | NUR ---
Problems reprioritized. Patient report given, questions answered & plan of care reviewed with FELIPA jama.
--- NOTE | 2020-10-06 06:26 | NUR ---
Patient in room PCU 3023. I have received report from Carla LEO and had the opportunity to ask questions and assume patient care.
[2020-10-06 07:20] LABS: BASOPHILS % (AUTO) 0.7 % (0-1); EOSINOPHILS # (AUTO) 0.2 X10'3 (0-0.9); EOSINOPHILS % (AUTO) 3.4 % (0-6); HEMATOCRIT 33.7 % (35.0-45.0); HEMOGLOBIN 11.7 g/dl (12.0-16.0); LYMPHOCYTES # (AUTO) 1.6 X10'3 (1.1-4.8); LYMPHOCYTES % (AUTO) 26.9 % (21-51); MEAN CORPUSCULAR HEMOGLOBIN 35.5 PG (27.0-31.0); MEAN CORPUSCULAR HGB CONC 34.7 g/dL (33.0-36.5); MEAN CORPUSCULAR VOLUME 102.3 FL (78-98); MEAN PLATELET VOLUME 7.7 FL (7.4-10.4); MONOCYTES # (AUTO) 0.7 X10'3 (0-0.9); MONOCYTES % (AUTO) 11.4 % (2-12); NEUTROPHILS # (AUTO) 3.5 X10'3 (1.8-7.7); NEUTROPHILS % (AUTO) 57.6 % (42-75); PLATELET COUNT 339 X10'3 (140-440); RED CELL DISTRIBUTION WIDTH 14.1 % (11.5-14.5); WHITE BLOOD COUNT 6.1 X10'3 (4.5-11.0)
[2020-10-06 07:39] LABS: ALANINE AMINOTRANSFERASE 20 U/L (12-78); ALBUMIN 2.1 G/DL (3.4-5.0); ALBUMIN/GLOBULIN RATIO 0.5 (1.1-1.5); ALKALINE PHOSPHATASE 48 IU/L (46-116); ANION GAP 7 (8-16); ASPARTATE AMINO TRANSFERASE 17 U/L (10-37); BILIRUBIN,TOTAL 0.3 MG/DL (0.1-1.0); BLOOD UREA NITROGEN 10 MG/DL (7-18); BUN/CREATININE RATIO 21.3 (6.6-38.0); CALCIUM 8.1 MG/DL (8.5-10.1); CHLORIDE 102 MMOL/L (99-107); CREATININE 0.47 MG/DL (0.40-0.90); GLUCOSE 96 MG/DL (70-104); MAGNESIUM 2.2 MG/DL (1.5-2.4); PHOSPHORUS 4.2 MG/DL (2.3-4.5); POTASSIUM 3.9 MMOL/L (3.5-5.1); SODIUM 138 MMOL/L (135-145); TOTAL CARBON DIOXIDE 29.3 MMOL/L (24-32); TOTAL PROTEIN 6.1 G/DL (6.4-8.2); eGFR > 90 ML/MIN
[2020-10-06] MEDS: K and/or MAG REPLACEMENT MC SCH ×4 (08:00→20:00)
[2020-10-06] MEDS: pantoprazole 40 MG vial IV SCH ×2 (08:39→21:10)
[2020-10-06] MEDS: zinc oxide ointment 30gm tube TP PRN (08:40)
[2020-10-06] MEDS: heparin, porcine 5000 units/ml vial SQ SCH ×2 (08:40→21:17)
[2020-10-06] MEDS: lactobacillus rhamnosus 10,000 MMU CELLS/CAPSULE PEG SCH ×2 (08:41→21:14)
[2020-10-06] MEDS: levetiracetam 100mg/ml oral solution 5ml UD cup PEG SCH ×2 (08:41→21:17)
[2020-10-06] MEDS: oxcarbazepine 150mg tablet PEG SCH ×2 (08:41→21:15)
[2020-10-06] MEDS: nystatin 500,000 unit/5ML UD oral suspension PO SCH ×3 (08:41→21:15)
[2020-10-06] MEDS: pioglitazone 15mg tablet PEG SCH (08:41)
[2020-10-06] MEDS: aspirin 81mg tab.chew PEG SCH (08:41)
[2020-10-06] MEDS: busPIRone 5mg tablet PEG SCH ×3 (08:42→21:14)
[2020-10-06] MEDS: metoprolol tartrate 25mg tablet PEG SCH ×2 (08:42→21:17)
[2020-10-06] MEDS: sertraline 50mg tablet PEG SCH (08:42)
[2020-10-06] MEDS: levoTHYROXINE 25mcg tablet PEG SCH (08:50)
[2020-10-06 11:00] VITALS: BP 101/55
[2020-10-06 15:00] VITALS: BP 107/57
[2020-10-06 18:00] VITALS: BP 106/47
--- NOTE | 2020-10-06 18:17 | NUR ---
Problems reprioritized. Patient report given, questions answered & plan of care reviewed with Carla LEO. Patient stable at transfer of care.
--- NOTE | 2020-10-06 18:38 | NUR ---
Patient in room PCU 3023. I have received report from FELIPA Miranda and had the opportunity to ask questions and assume patient care.
[2020-10-06] MEDS: atorvastatin 20mg tablet PEG SCH (21:14)
[2020-10-06] MEDS: risperiDONE 0.5mg tablet PEG SCH (21:20)
[2020-10-06 22:00] VITALS: BP 106/57
[2020-10-06] MEDS: insulin regular, human U-100 3ml vial - multi-dose SQ SCH (22:09)
[2020-10-06] MEDS: insulin glargine (Lantus) pen - multi-dose SQ SCH (22:28)
[2020-10-07] VITALS (7 sets, daily range): BP systolic 93–115; BP diastolic 38–72
[2020-10-07] MEDS: diltiazem 30mg tablet PEG SCH ×4 (01:08→20:50)
[2020-10-07] MEDS: metroNIDAZOLE-Flagyl 500mg/NS 100ml IVPB IV SCH ×4 (01:20→20:48)
[2020-10-07] MEDS: bismuth subsalicylate 262mg/15ml oral suspension PEG SCH ×4 (01:20→20:00)
[2020-10-07] MEDS: albuterol 2.5 MG/3 ML nebule NEB SCH ×4 (02:19→20:30)
[2020-10-07] MEDS: PEG 400/HYPROMELLOSE/GLYCERIN 15ml bottle EACHEYE SCH ×5 (04:04→20:00)
--- NOTE | 2020-10-07 06:28 | NUR ---
Problems reprioritized. Patient report given, questions answered & plan of care reviewed with Hany Miranda.
--- NOTE | 2020-10-07 06:44 | NUR ---
Patient in room PCU 3023. I have received report from Carla LEO and had the opportunity to ask questions and assume patient care.
[2020-10-07] MEDS: K and/or MAG REPLACEMENT MC SCH ×4 (08:00→20:00)
[2020-10-07 08:18] LABS: BASOPHILS % (AUTO) 0.8 % (0-1); EOSINOPHILS # (AUTO) 0.2 X10'3 (0-0.9); EOSINOPHILS % (AUTO) 2.6 % (0-6); HEMATOCRIT 36.3 % (35.0-45.0); HEMOGLOBIN 12.3 g/dl (12.0-16.0); LYMPHOCYTES # (AUTO) 1.4 X10'3 (1.1-4.8); LYMPHOCYTES % (AUTO) 24.3 % (21-51); MEAN CORPUSCULAR HEMOGLOBIN 34.2 PG (27.0-31.0); MEAN CORPUSCULAR HGB CONC 33.9 g/dL (33.0-36.5); MEAN CORPUSCULAR VOLUME 101.1 FL (78-98); MEAN PLATELET VOLUME 7.6 FL (7.4-10.4); MONOCYTES # (AUTO) 0.6 X10'3 (0-0.9); MONOCYTES % (AUTO) 10.4 % (2-12); NEUTROPHILS # (AUTO) 3.5 X10'3 (1.8-7.7); NEUTROPHILS % (AUTO) 61.9 % (42-75); PLATELET COUNT 344 X10'3 (140-440); RED BLOOD COUNT 3.59 X10'6 (4.20-5.60); WHITE BLOOD COUNT 5.7 X10'3 (4.5-11.0)
[2020-10-07] MEDS: pantoprazole 40 MG vial IV SCH ×2 (08:55→20:48)
[2020-10-07] MEDS: heparin, porcine 5000 units/ml vial SQ SCH ×2 (08:56→20:52)
[2020-10-07] MEDS: levetiracetam 100mg/ml oral solution 5ml UD cup PEG SCH ×2 (08:56→20:52)
[2020-10-07] MEDS: aspirin 81mg tab.chew PEG SCH (08:56)
[2020-10-07 08:57] LABS: ALANINE AMINOTRANSFERASE 18 U/L (12-78); ALBUMIN 2.1 G/DL (3.4-5.0); ALBUMIN/GLOBULIN RATIO 0.5 (1.1-1.5); ALKALINE PHOSPHATASE 53 IU/L (46-116); ANION GAP 8 (8-16); ASPARTATE AMINO TRANSFERASE 10 U/L (10-37); BILIRUBIN,TOTAL 0.2 MG/DL (0.1-1.0); BLOOD UREA NITROGEN 11 MG/DL (7-18); BUN/CREATININE RATIO 27.5 (6.6-38.0); CALCIUM 8.6 MG/DL (8.5-10.1); CHLORIDE 101 MMOL/L (99-107); GLUCOSE 129 MG/DL (70-104); MAGNESIUM 2.2 MG/DL (1.5-2.4); PHOSPHORUS 3.9 MG/DL (2.3-4.5); POTASSIUM 3.9 MMOL/L (3.5-5.1); SODIUM 138 MMOL/L (135-145); TOTAL CARBON DIOXIDE 29.4 MMOL/L (24-32); TOTAL PROTEIN 6.5 G/DL (6.4-8.2); eGFR > 90 ML/MIN
[2020-10-07] MEDS: oxcarbazepine 150mg tablet PEG SCH ×2 (08:57→20:48)
[2020-10-07] MEDS: pioglitazone 15mg tablet PEG SCH (08:57)
[2020-10-07] MEDS: sertraline 50mg tablet PEG SCH (08:57)
[2020-10-07] MEDS: busPIRone 5mg tablet PEG SCH ×3 (08:57→20:51)
[2020-10-07] MEDS: lactobacillus rhamnosus 10,000 MMU CELLS/CAPSULE PEG SCH ×2 (08:57→20:51)
[2020-10-07] MEDS: metoprolol tartrate 25mg tablet PEG SCH ×2 (08:58→20:52)
[2020-10-07] MEDS: nystatin 500,000 unit/5ML UD oral suspension PO SCH (08:59)
[2020-10-07] MEDS: insulin regular, human U-100 3ml vial - multi-dose SQ SCH (14:11)
--- NOTE | 2020-10-07 14:35 | NUR ---
F/u 10/07: Pt tolerating bolus TF at goal GRV as well as electrolytes WNL. LBM 10/06. No changes in nutrition intervention at this time. Will continue to monitor. Rec: 1. Bolus TF via PEG four times a day using Jevity 1.2 with goal rate of 360 mL/bolus. To begin at 110 mL bolus and advance by 50 mL each bolus as tolerated until goal rate is met. Once at goal to provide 1440 mL total volume/day, 1728 kcal, 1166 mL water, and 80 g protein 2. Additional 50 mL water flush before and after each bolus feed; monitor serum Na 3. PALB q /; daily wts 4. Routine bowel care 5. F/u BSS with ST if planning on advancing PO diet HOME BOLUS TF RECS: 1. Continue with admit recs in view of pt tolerating at goal rate: Bolus feeding via PEG four times a day using Jevity 1.2 or equivalent with goal rate of 360 mL/bolus 2. Additional 50 mL water flush before and after each bolus feed 3. Outpatient RD to adjust TF recommendations as appropriate based on patient's estimated nutrient needs Addendum: 10/07/20 at [address] Amended: Links added.
--- NOTE | 2020-10-07 18:21 | NUR ---
Problems reprioritized. Patient report given, questions answered & plan of care reviewed with Nina LEO. Patient stable at transfer of care.
[2020-10-07] MEDS: atorvastatin 20mg tablet PEG SCH (20:51)
[2020-10-07] MEDS: risperiDONE 0.5mg tablet PEG SCH (20:53)
[2020-10-07] MEDS: insulin glargine (Lantus) pen - multi-dose SQ SCH (21:14)
[2020-10-08] VITALS (7 sets, daily range): BP systolic 92–116; BP diastolic 43–76
[2020-10-08] MEDS: PEG 400/HYPROMELLOSE/GLYCERIN 15ml bottle EACHEYE SCH ×6 (00:19→20:35)
[2020-10-08] MEDS: diltiazem 30mg tablet PEG SCH ×4 (02:00→20:34)
[2020-10-08] MEDS: bismuth subsalicylate 262mg/15ml oral suspension PEG SCH ×4 (02:14→20:33)
[2020-10-08] MEDS: metroNIDAZOLE-Flagyl 500mg/NS 100ml IVPB IV SCH ×4 (02:14→20:24)
[2020-10-08] MEDS: insulin regular, human U-100 3ml vial - multi-dose SQ SCH ×2 (02:31→14:33)
[2020-10-08] MEDS: albuterol 2.5 MG/3 ML nebule NEB SCH ×4 (02:44→20:20)
[2020-10-08] MEDS: K and/or MAG REPLACEMENT MC SCH ×4 (08:00→20:00)
[2020-10-08] MEDS: lactobacillus rhamnosus 10,000 MMU CELLS/CAPSULE PEG SCH ×2 (08:08→20:32)
[2020-10-08] MEDS: levoTHYROXINE 25mcg tablet PEG SCH (08:08)
[2020-10-08] MEDS: pioglitazone 15mg tablet PEG SCH (08:08)
[2020-10-08] MEDS: busPIRone 5mg tablet PEG SCH ×3 (08:08→20:33)
[2020-10-08] MEDS: aspirin 81mg tab.chew PEG SCH (08:08)
[2020-10-08] MEDS: sertraline 50mg tablet PEG SCH (08:09)
[2020-10-08] MEDS: levetiracetam 100mg/ml oral solution 5ml UD cup PEG SCH ×2 (08:09→20:32)
[2020-10-08] MEDS: oxcarbazepine 150mg tablet PEG SCH ×2 (08:09→20:33)
[2020-10-08] MEDS: metoprolol tartrate 25mg tablet PEG SCH ×2 (08:09→20:34)
[2020-10-08] MEDS: heparin, porcine 5000 units/ml vial SQ SCH ×2 (08:10→20:37)
[2020-10-08] MEDS: pantoprazole 40 MG vial IV SCH ×2 (08:10→20:25)
[2020-10-08 08:20] LABS: EOSINOPHILS # (AUTO) 0.1 X10'3 (0-0.9); EOSINOPHILS % (AUTO) 2.6 % (0-6); HEMATOCRIT 36.2 % (35.0-45.0); HEMOGLOBIN 12.3 g/dl (12.0-16.0); LYMPHOCYTES # (AUTO) 1.4 X10'3 (1.1-4.8); LYMPHOCYTES % (AUTO) 30.4 % (21-51); MEAN CORPUSCULAR HEMOGLOBIN 34.3 PG (27.0-31.0); MEAN CORPUSCULAR VOLUME 100.7 FL (78-98); MEAN PLATELET VOLUME 7.6 FL (7.4-10.4); MONOCYTES # (AUTO) 0.5 X10'3 (0-0.9); MONOCYTES % (AUTO) 10.9 % (2-12); NEUTROPHILS # (AUTO) 2.6 X10'3 (1.8-7.7); NEUTROPHILS % (AUTO) 55.1 % (42-75); PLATELET COUNT 354 X10'3 (140-440); RED BLOOD COUNT 3.59 X10'6 (4.20-5.60); RED CELL DISTRIBUTION WIDTH 14.5 % (11.5-14.5); WHITE BLOOD COUNT 4.7 X10'3 (4.5-11.0)
[2020-10-08] MEDS: dextrose 50%-water 50ml dispensing syringe IV PRN (08:33)
[2020-10-08 08:39] LABS: ALANINE AMINOTRANSFERASE 16 U/L (12-78); ALBUMIN 2.1 G/DL (3.4-5.0); ALBUMIN/GLOBULIN RATIO 0.5 (1.1-1.5); ALKALINE PHOSPHATASE 50 IU/L (46-116); ANION GAP 4 (8-16); ASPARTATE AMINO TRANSFERASE 13 U/L (10-37); BILIRUBIN,TOTAL 0.3 MG/DL (0.1-1.0); BLOOD UREA NITROGEN 8 MG/DL (7-18); BUN/CREATININE RATIO 19.5 (6.6-38.0); CALCIUM 8.6 MG/DL (8.5-10.1); CHLORIDE 101 MMOL/L (99-107); CREATININE 0.41 MG/DL (0.40-0.90); GLUCOSE 83 MG/DL (70-104); PHOSPHORUS 3.4 MG/DL (2.3-4.5); POTASSIUM 3.8 MMOL/L (3.5-5.1); SODIUM 139 MMOL/L (135-145); TOTAL CARBON DIOXIDE 34.4 MMOL/L (24-32); TOTAL PROTEIN 6.4 G/DL (6.4-8.2); eGFR > 90 ML/MIN
--- NOTE | 2020-10-08 18:20 | NUR ---
Patient in room PCU 3023. I have received report from FELIPA Bo and had the opportunity to ask questions and assume patient care.
--- NOTE | 2020-10-08 18:22 | NUR ---
Problems reprioritized. Patient report given, questions answered & plan of care reviewed with Glenys LEO. Patient stable at transfer of care.
[2020-10-08] MEDS: risperiDONE 0.5mg tablet PEG SCH (20:31)
[2020-10-08] MEDS: atorvastatin 20mg tablet PEG SCH (20:32)
[2020-10-09] MEDS: insulin glargine (Lantus) pen - multi-dose SQ SCH ×2 (01:15→21:45)
[2020-10-09 02:00] VITALS: BP 98/80
[2020-10-09] MEDS: diltiazem 30mg tablet PEG SCH ×4 (02:00→20:50)
[2020-10-09] MEDS: albuterol 2.5 MG/3 ML nebule NEB SCH ×4 (02:18→20:33)
[2020-10-09] MEDS: insulin regular, human U-100 3ml vial - multi-dose SQ SCH ×2 (03:04→15:06)
[2020-10-09] MEDS: bismuth subsalicylate 262mg/15ml oral suspension PEG SCH ×4 (03:15→20:49)
[2020-10-09] MEDS: metroNIDAZOLE-Flagyl 500mg/NS 100ml IVPB IV SCH ×4 (03:15→20:49)
[2020-10-09] MEDS: PEG 400/HYPROMELLOSE/GLYCERIN 15ml bottle EACHEYE SCH ×6 (04:00→20:52)
[2020-10-09 06:00] VITALS: BP 107/51
--- NOTE | 2020-10-09 06:27 | NUR ---
Problems reprioritized. Patient bedside report given, questions answered & plan of care reviewed with FELIPA Bo.
[2020-10-09 06:52] LABS: BASOPHILS # (AUTO) 0.1 X10'3 (0-0.2); BASOPHILS % (AUTO) 1.1 % (0-1); EOSINOPHILS # (AUTO) 0.1 X10'3 (0-0.9); EOSINOPHILS % (AUTO) 2.9 % (0-6); HEMATOCRIT 37.2 % (35.0-45.0); HEMOGLOBIN 12.4 g/dl (12.0-16.0); LYMPHOCYTES # (AUTO) 1.4 X10'3 (1.1-4.8); LYMPHOCYTES % (AUTO) 30.3 % (21-51); MEAN CORPUSCULAR HEMOGLOBIN 34.9 PG (27.0-31.0); MEAN CORPUSCULAR HGB CONC 33.5 g/dL (33.0-36.5); MEAN CORPUSCULAR VOLUME 104.4 FL (78-98); MEAN PLATELET VOLUME 7.1 FL (7.4-10.4); MONOCYTES # (AUTO) 0.6 X10'3 (0-0.9); MONOCYTES % (AUTO) 12.7 % (2-12); NEUTROPHILS # (AUTO) 2.5 X10'3 (1.8-7.7); PLATELET COUNT 299 X10'3 (140-440); RED BLOOD COUNT 3.56 X10'6 (4.20-5.60); RED CELL DISTRIBUTION WIDTH 14.4 % (11.5-14.5); WHITE BLOOD COUNT 4.8 X10'3 (4.5-11.0)
[2020-10-09 07:46] LABS: ALANINE AMINOTRANSFERASE 14 U/L (12-78); ALBUMIN 2.1 G/DL (3.4-5.0); ALBUMIN/GLOBULIN RATIO 0.5 (1.1-1.5); ALKALINE PHOSPHATASE 50 IU/L (46-116); ANION GAP 6 (8-16); ASPARTATE AMINO TRANSFERASE 7 U/L (10-37); BILIRUBIN,TOTAL 0.2 MG/DL (0.1-1.0); BLOOD UREA NITROGEN 8 MG/DL (7-18); CALCIUM 8.6 MG/DL (8.5-10.1); CHLORIDE 101 MMOL/L (99-107); CREATININE 0.42 MG/DL (0.40-0.90); GLUCOSE 66 MG/DL (70-104); PHOSPHORUS 3.6 MG/DL (2.3-4.5); SODIUM 141 MMOL/L (135-145); TOTAL PROTEIN 6.6 G/DL (6.4-8.2); eGFR > 90 ML/MIN
[2020-10-09] MEDS: K and/or MAG REPLACEMENT MC SCH ×4 (08:00→18:25)
[2020-10-09] MEDS: dextrose 50%-water 50ml dispensing syringe IV PRN (08:32)
[2020-10-09] MEDS: levetiracetam 100mg/ml oral solution 5ml UD cup PEG SCH ×2 (08:59→20:50)
[2020-10-09] MEDS: lactobacillus rhamnosus 10,000 MMU CELLS/CAPSULE PEG SCH ×2 (09:00→20:49)
[2020-10-09] MEDS: metoprolol tartrate 25mg tablet PEG SCH ×2 (09:00→20:51)
[2020-10-09] MEDS: oxcarbazepine 150mg tablet PEG SCH ×2 (09:00→20:51)
[2020-10-09] MEDS: sertraline 50mg tablet PEG SCH (09:00)
[2020-10-09] MEDS: pioglitazone 15mg tablet PEG SCH (09:00)
[2020-10-09] MEDS: busPIRone 5mg tablet PEG SCH ×3 (09:01→20:49)
[2020-10-09] MEDS: aspirin 81mg tab.chew PEG SCH (09:01)
[2020-10-09] MEDS: pantoprazole 40 MG vial IV SCH ×2 (09:02→20:52)
[2020-10-09] MEDS: heparin, porcine 5000 units/ml vial SQ SCH ×2 (09:02→20:52)
[2020-10-09 11:00] VITALS: BP 98/76
[2020-10-09 15:00] VITALS: BP 124/72
--- NOTE | 2020-10-09 15:44 | NUR ---
ORDER FOR NT SXN PLACED BY . PT HAS COARSE RHONCHI BS HOWEVER HAS A STRONG PRODUCTIVE COUGH WITH THE ABILITY TO CLEAR THE SECRETIONS WITH ORAL SXN INDEPENDENTLY. NO INDICATION FOR NT SXN AT THIS TIME. SPO2 99% ON 3LPM. DEEP BREATHE AND COUGH EDUCATION GIVEN. Addendum: 10/09/20 at 1547 by Lisa Mathur RT Amended: Links added.
[2020-10-09 18:00] VITALS: BP 104/54
--- NOTE | 2020-10-09 18:20 | NUR ---
Problems reprioritized. Patient report given, questions answered & plan of care reviewed with Glenys LEO. Patient stable at transfer of care.
--- NOTE | 2020-10-09 18:40 | NUR ---
Patient in room PCU 3023. I have received bedside report from FELIPA Bo and had the opportunity to ask questions and assume patient care.
--- NOTE | 2020-10-09 18:44 | NUR ---
RT seen the patient today and stated the patient did not need deep suction.
[2020-10-09] MEDS: risperiDONE 0.5mg tablet PEG SCH (20:50)
[2020-10-09] MEDS: atorvastatin 20mg tablet PEG SCH (20:51)
[2020-10-09 22:00] VITALS: BP 99/64
[2020-10-10 02:00] VITALS: BP 110/40
[2020-10-10] MEDS: albuterol 2.5 MG/3 ML nebule NEB SCH ×4 (02:34→20:53)
[2020-10-10] MEDS: diltiazem 30mg tablet PEG SCH ×4 (02:57→20:24)
[2020-10-10] MEDS: metroNIDAZOLE-Flagyl 500mg/NS 100ml IVPB IV SCH ×4 (02:58→20:21)
[2020-10-10] MEDS: bismuth subsalicylate 262mg/15ml oral suspension PEG SCH ×4 (03:00→21:45)
--- NOTE | 2020-10-10 03:42 | NUR ---
Pt has been receiving Lantus for HS, however morning BG has been below 80 for the past two days. Last night she was given 11 units of lantus and consideration for correctional Humalin was based on the Nighttime SQ Insulin tool. When based on night doses for correction, BG of 204 and 244, and the patient at a level 2, there was no indications for nighttime Humalin.
[2020-10-10] MEDS: PEG 400/HYPROMELLOSE/GLYCERIN 15ml bottle EACHEYE SCH ×6 (04:00→20:27)
--- NOTE | 2020-10-10 06:00 | NUR ---
Patient in room PCU 3023. I have received report from TYSON LEO and had the opportunity to ask questions and assume patient care.
--- NOTE | 2020-10-10 06:13 | NUR ---
Problems reprioritized. Patient bedside report given, questions answered & plan of care reviewed with FELIPA Asher.
[2020-10-10 06:37] LABS: EOSINOPHILS # (AUTO) 0.2 X10'3 (0-0.9); EOSINOPHILS % (AUTO) 3.4 % (0-6); HEMATOCRIT 35.2 % (35.0-45.0); LYMPHOCYTES # (AUTO) 1.3 X10'3 (1.1-4.8); LYMPHOCYTES % (AUTO) 27.9 % (21-51); MEAN CORPUSCULAR HEMOGLOBIN 34.8 PG (27.0-31.0); MEAN CORPUSCULAR HGB CONC 34.1 g/dL (33.0-36.5); MEAN CORPUSCULAR VOLUME 102.1 FL (78-98); MEAN PLATELET VOLUME 7.8 FL (7.4-10.4); MONOCYTES # (AUTO) 0.5 X10'3 (0-0.9); MONOCYTES % (AUTO) 10.1 % (2-12); NEUTROPHILS # (AUTO) 2.7 X10'3 (1.8-7.7); NEUTROPHILS % (AUTO) 57.6 % (42-75); PLATELET COUNT 295 X10'3 (140-440); RED BLOOD COUNT 3.44 X10'6 (4.20-5.60); RED CELL DISTRIBUTION WIDTH 14.5 % (11.5-14.5); WHITE BLOOD COUNT 4.7 X10'3 (4.5-11.0)
[2020-10-10 06:54] LABS: ALANINE AMINOTRANSFERASE 12 U/L (12-78); ALBUMIN/GLOBULIN RATIO 0.5 (1.1-1.5); ALKALINE PHOSPHATASE 47 IU/L (46-116); ANION GAP 4 (8-16); ASPARTATE AMINO TRANSFERASE 13 U/L (10-37); BILIRUBIN,TOTAL 0.2 MG/DL (0.1-1.0); BLOOD UREA NITROGEN 7 MG/DL (7-18); BUN/CREATININE RATIO 12.5 (6.6-38.0); CALCIUM 8.5 MG/DL (8.5-10.1); CHLORIDE 96 MMOL/L (99-107); CREATININE 0.56 MG/DL (0.40-0.90); GLUCOSE 324 MG/DL (70-104); MAGNESIUM 1.9 MG/DL (1.5-2.4); PHOSPHORUS 3.7 MG/DL (2.3-4.5); POTASSIUM 4.3 MMOL/L (3.5-5.1); SODIUM 136 MMOL/L (135-145); TOTAL CARBON DIOXIDE 36.2 MMOL/L (24-32); TOTAL PROTEIN 6.1 G/DL (6.4-8.2); eGFR > 90 ML/MIN
[2020-10-10 07:20] VITALS: BP 98/50
[2020-10-10] MEDS: K and/or MAG REPLACEMENT MC SCH ×4 (08:00→20:00)
[2020-10-10] MEDS: levetiracetam 100mg/ml oral solution 5ml UD cup PEG SCH ×2 (08:20→20:21)
[2020-10-10] MEDS: metoprolol tartrate 25mg tablet PEG SCH ×2 (08:20→20:26)
[2020-10-10] MEDS: pioglitazone 15mg tablet PEG SCH (08:20)
[2020-10-10] MEDS: busPIRone 5mg tablet PEG SCH ×3 (08:20→20:22)
[2020-10-10] MEDS: aspirin 81mg tab.chew PEG SCH (08:21)
[2020-10-10] MEDS: levoTHYROXINE 25mcg tablet PEG SCH (08:21)
[2020-10-10] MEDS: lactobacillus rhamnosus 10,000 MMU CELLS/CAPSULE PEG SCH ×2 (08:21→20:24)
[2020-10-10] MEDS: sertraline 50mg tablet PEG SCH (08:21)
[2020-10-10] MEDS: oxcarbazepine 150mg tablet PEG SCH ×2 (08:22→20:22)
[2020-10-10] MEDS: pantoprazole 40 MG vial IV SCH ×2 (08:22→20:21)
[2020-10-10] MEDS: heparin, porcine 5000 units/ml vial SQ SCH ×2 (08:22→20:20)
[2020-10-10] MEDS: insulin regular, human U-100 3ml vial - multi-dose SQ SCH ×2 (09:39→21:40)
[2020-10-10 12:10] VITALS: BP 92/72
--- NOTE | 2020-10-10 14:51 | NUR ---
F/u 10/10: Pt continues tolerating bolus TF at goal GRV WNL. Electrolytes WNL w/ serum Na now 136 though s/p dextrose for low GLU 68mg/dl in AM then increased to 300's likely impacting serum Na. LBM 10/09. Will continue to monitor. Rec: 1. Bolus TF via PEG four times a day using Jevity 1.2 with goal rate of 360 mL/bolus. To begin at 110 mL bolus and advance by 50 mL each bolus as tolerated until goal rate is met. Once at goal to provide 1440 mL total volume/day, 1728 kcal, 1166 mL water, and 80 g protein 2. Additional 50 mL water flush before and after each bolus feed; monitor serum Na 3. PALB q /; daily wts 4. Routine bowel care 5. F/u BSS with ST if planning on advancing PO diet HOME BOLUS TF RECS: 1. Continue with admit recs in view of pt tolerating at goal rate: Bolus feeding via PEG four times a day using Jevity 1.2 or equivalent with goal rate of 360 mL/bolus 2. Additional 50 mL water flush before and after each bolus feed 3. Outpatient RD to adjust TF recommendations as appropriate based on patient's estimated nutrient needs Addendum: 10/10/20 at [address] Amended: Links added.
[2020-10-10 17:35] VITALS: BP 111/46
[2020-10-10 18:00] VITALS: BP 100/50
[2020-10-10] MEDS: atorvastatin 20mg tablet PEG SCH (20:24)
[2020-10-10] MEDS: risperiDONE 0.5mg tablet PEG SCH (20:30)
[2020-10-10] MEDS: insulin glargine (Lantus) pen - multi-dose SQ SCH (21:07)
[2020-10-10 22:00] VITALS: BP 111/57
[2020-10-11] MEDS: PEG 400/HYPROMELLOSE/GLYCERIN 15ml bottle EACHEYE SCH ×6 (00:12→23:08)
[2020-10-11] MEDS: metroNIDAZOLE-Flagyl 500mg/NS 100ml IVPB IV SCH ×4 (01:42→22:53)
[2020-10-11] MEDS: diltiazem 30mg tablet PEG SCH ×4 (01:42→22:00)
[2020-10-11] MEDS: bismuth subsalicylate 262mg/15ml oral suspension PEG SCH ×4 (01:43→22:28)
[2020-10-11 02:00] VITALS: BP 112/53
[2020-10-11] MEDS: insulin regular, human U-100 3ml vial - multi-dose SQ SCH ×2 (02:27→15:00)
--- NOTE | 2020-10-11 06:00 | NUR ---
Patient in room PCU 3023. I have received report from LAY LEO and had the opportunity to ask questions and assume patient care.
--- NOTE | 2020-10-11 06:25 | NUR ---
Problems reprioritized. Patient report given, questions answered & plan of care reviewed with FELIPA Asher.
[2020-10-11 07:16] VITALS: BP 100/88
[2020-10-11 07:18] LABS: ALANINE AMINOTRANSFERASE 16 U/L (12-78); ALBUMIN 2.2 G/DL (3.4-5.0); ALBUMIN/GLOBULIN RATIO 0.5 (1.1-1.5); ALKALINE PHOSPHATASE 49 IU/L (46-116); ANION GAP 6 (8-16); ASPARTATE AMINO TRANSFERASE 16 U/L (10-37); BILIRUBIN,TOTAL 0.2 MG/DL (0.1-1.0); BLOOD UREA NITROGEN 10 MG/DL (7-18); BUN/CREATININE RATIO 23.8 (6.6-38.0); CALCIUM 8.7 MG/DL (8.5-10.1); CHLORIDE 97 MMOL/L (99-107); CREATININE 0.42 MG/DL (0.40-0.90); GLUCOSE 78 MG/DL (70-104); MAGNESIUM 2.1 MG/DL (1.5-2.4); PHOSPHORUS 4.2 MG/DL (2.3-4.5); PREALBUMIN 17.3 MG/DL (19-36); SODIUM 136 MMOL/L (135-145); TOTAL CARBON DIOXIDE 33.3 MMOL/L (24-32); TOTAL PROTEIN 6.8 G/DL (6.4-8.2); eGFR > 90 ML/MIN
[2020-10-11 07:22] LABS: POTASSIUM 4.7 MMOL/L (3.5-5.1)
[2020-10-11] MEDS: K and/or MAG REPLACEMENT MC SCH ×4 (08:00→20:00)
[2020-10-11] MEDS: metoprolol tartrate 25mg tablet PEG SCH ×2 (08:01→22:07)
[2020-10-11] MEDS: oxcarbazepine 150mg tablet PEG SCH ×2 (08:01→22:18)
[2020-10-11] MEDS: pioglitazone 15mg tablet PEG SCH (08:01)
[2020-10-11] MEDS: levetiracetam 100mg/ml oral solution 5ml UD cup PEG SCH ×2 (08:01→22:25)
[2020-10-11] MEDS: lactobacillus rhamnosus 10,000 MMU CELLS/CAPSULE PEG SCH ×2 (08:02→21:00)
[2020-10-11] MEDS: aspirin 81mg tab.chew PEG SCH (08:02)
[2020-10-11] MEDS: busPIRone 5mg tablet PEG SCH ×3 (08:02→22:20)
[2020-10-11] MEDS: sertraline 50mg tablet PEG SCH (08:02)
[2020-10-11] MEDS: heparin, porcine 5000 units/ml vial SQ SCH ×2 (08:02→23:00)
[2020-10-11] MEDS: pantoprazole 40 MG vial IV SCH ×2 (08:02→22:55)
[2020-10-11] MEDS: albuterol 2.5 MG/3 ML nebule NEB SCH ×3 (09:00→20:54)
[2020-10-11 09:06] LABS: BASOPHILS # (AUTO) 0.1 X10'3 (0-0.2); BASOPHILS % (AUTO) 0.6 % (0-1); EOSINOPHILS # (AUTO) 0.1 X10'3 (0-0.9); EOSINOPHILS % (AUTO) 1.1 % (0-6); HEMATOCRIT 42.4 % (35.0-45.0); HEMOGLOBIN 14.5 g/dl (12.0-16.0); LYMPHOCYTES # (AUTO) 0.8 X10'3 (1.1-4.8); MEAN CORPUSCULAR HEMOGLOBIN 35.3 PG (27.0-31.0); MEAN CORPUSCULAR HGB CONC 34.1 g/dL (33.0-36.5); MEAN CORPUSCULAR VOLUME 103.5 FL (78-98); MEAN PLATELET VOLUME 7.1 FL (7.4-10.4); MONOCYTES # (AUTO) 0.5 X10'3 (0-0.9); MONOCYTES % (AUTO) 5.9 % (2-12); NEUTROPHILS # (AUTO) 7.6 X10'3 (1.8-7.7); NEUTROPHILS % (AUTO) 83.4 % (42-75); PLATELET COUNT 307 X10'3 (140-440); RED BLOOD COUNT 4.09 X10'6 (4.20-5.60); RED CELL DISTRIBUTION WIDTH 14.6 % (11.5-14.5); WHITE BLOOD COUNT 9.1 X10'3 (4.5-11.0)
[2020-10-11] MEDS: diazepam inj 5 MG/ML inj. IV PRN ×2 (10:00→11:21)
[2020-10-11 12:00] VITALS: BP 90/64
[2020-10-11 16:16] VITALS: BP 119/59
--- NOTE | 2020-10-11 18:25 | NUR ---
I have received report from FELIPA Asher and had the opportunity to ask questions and assume patient care.
[2020-10-11] MEDS: insulin glargine (Lantus) pen - multi-dose SQ SCH (21:00)
[2020-10-11] MEDS: dextrose 50%-water 50ml dispensing syringe IV PRN (21:53)
[2020-10-11] MEDS: atorvastatin 20mg tablet PEG SCH (22:06)
[2020-10-11] MEDS: risperiDONE 0.5mg tablet PEG SCH (22:21)
[2020-10-11] MEDS: mineral oil/petrolatum ophthal oint LEFTEYE SCH (23:03)
[2020-10-12] VITALS (7 sets, daily range): BP systolic 93–121; BP diastolic 38–75
[2020-10-12] MEDS: diltiazem 30mg tablet PEG SCH ×4 (02:00→20:15)
[2020-10-12] MEDS: bismuth subsalicylate 262mg/15ml oral suspension PEG SCH ×4 (02:13→20:15)
[2020-10-12] MEDS: metroNIDAZOLE-Flagyl 500mg/NS 100ml IVPB IV SCH ×3 (02:20→14:06)
[2020-10-12] MEDS: albuterol 2.5 MG/3 ML nebule NEB SCH ×4 (03:03→20:39)
--- NOTE | 2020-10-12 04:44 | NUR ---
Notifed hospitalist regarding the Patient gong from 2.L of oxygen to 8-9 on high flow during day shift. Patient remains on 8L is currently 97% but has dipped down a couple times into the low 80's throughout the shift while sleeping. Oxygen saturations rise back up with stimulation, and position change. Received order for an ABG.
[2020-10-12] MEDS: PEG 400/HYPROMELLOSE/GLYCERIN 15ml bottle EACHEYE SCH ×6 (04:53→20:00)
[2020-10-12 05:15] LABS: ABG BASE EXCESS 8.3 mmol/L (-2.0-2.0); ABG HCO3 33.9 mmol/L (22.0-26.0); ABG OXYGEN SATURATION 97.6 % (94-97); ABG PO2 (T) 98.1 mmHg (75.0-100.0); ALLEN'S TEST Yes; FCOHb 0.1 % (0.0-3.9); FLOW 8 L/min; FMetHb 0.2 % (0.0-1.5); FO2Hb 97.3 % (94-97); PATIENT TEMPERATURE 36.8; TOTAL HEMOGLOBIN 12.5 G/dl (12.0-16.0)
--- NOTE | 2020-10-12 05:29 | NUR ---
Notified hospitalist of the ABG results, PH 7.437 Pco2 51.4 p02 99.3. These numbers are expectable per the MD
--- NOTE | 2020-10-12 06:00 | NUR ---
Patient in room PCU 3023. I have received report from JIMENEZ LEO and had the opportunity to ask questions and assume patient care.
--- NOTE | 2020-10-12 06:27 | NUR ---
Problems reprioritized. Patient report given, questions answered & plan of care reviewed with FELIPA Asher.
[2020-10-12 07:09] LABS: BASOPHILS % (AUTO) 0.4 % (0-1); EOSINOPHILS # (AUTO) 0.1 X10'3 (0-0.9); EOSINOPHILS % (AUTO) 0.7 % (0-6); HEMATOCRIT 36.6 % (35.0-45.0); HEMOGLOBIN 12.4 g/dl (12.0-16.0); LYMPHOCYTES # (AUTO) 1.1 X10'3 (1.1-4.8); LYMPHOCYTES % (AUTO) 14.1 % (21-51); MEAN CORPUSCULAR HEMOGLOBIN 34.9 PG (27.0-31.0); MEAN CORPUSCULAR HGB CONC 33.9 g/dL (33.0-36.5); MEAN CORPUSCULAR VOLUME 103.1 FL (78-98); MEAN PLATELET VOLUME 7.1 FL (7.4-10.4); MONOCYTES # (AUTO) 0.6 X10'3 (0-0.9); MONOCYTES % (AUTO) 7.4 % (2-12); NEUTROPHILS # (AUTO) 6.3 X10'3 (1.8-7.7); NEUTROPHILS % (AUTO) 77.4 % (42-75); PLATELET COUNT 290 X10'3 (140-440); RED BLOOD COUNT 3.55 X10'6 (4.20-5.60); RED CELL DISTRIBUTION WIDTH 14.9 % (11.5-14.5); WHITE BLOOD COUNT 8.1 X10'3 (4.5-11.0)
[2020-10-12 07:40] LABS: ALANINE AMINOTRANSFERASE 15 U/L (12-78); ALBUMIN 2.1 G/DL (3.4-5.0); ALBUMIN/GLOBULIN RATIO 0.5 (1.1-1.5); ALKALINE PHOSPHATASE 43 IU/L (46-116); ANION GAP 7 (8-16); ASPARTATE AMINO TRANSFERASE 8 U/L (10-37); BILIRUBIN,TOTAL 0.3 MG/DL (0.1-1.0); BLOOD UREA NITROGEN 10 MG/DL (7-18); BUN/CREATININE RATIO 17.5 (6.6-38.0); CALCIUM 8.3 MG/DL (8.5-10.1); CHLORIDE 97 MMOL/L (99-107); CREATININE 0.57 MG/DL (0.40-0.90); GLUCOSE 369 MG/DL (70-104); MAGNESIUM 2.2 MG/DL (1.5-2.4); PHOSPHORUS 3.1 MG/DL (2.3-4.5); POTASSIUM 3.9 MMOL/L (3.5-5.1); SODIUM 138 MMOL/L (135-145); TOTAL CARBON DIOXIDE 34.1 MMOL/L (24-32); TOTAL PROTEIN 6.5 G/DL (6.4-8.2); eGFR > 90 ML/MIN
[2020-10-12] MEDS: K and/or MAG REPLACEMENT MC SCH ×4 (08:00→20:00)
[2020-10-12] MEDS: mineral oil/petrolatum ophthal oint LEFTEYE SCH ×4 (08:57→20:14)
[2020-10-12] MEDS: pantoprazole 40 MG vial IV SCH (08:58)
[2020-10-12] MEDS: heparin, porcine 5000 units/ml vial SQ SCH ×2 (08:58→20:16)
[2020-10-12] MEDS: sertraline 50mg tablet PEG SCH (08:59)
[2020-10-12] MEDS: levetiracetam 100mg/ml oral solution 5ml UD cup PEG SCH ×2 (08:59→20:13)
[2020-10-12] MEDS: metoprolol tartrate 25mg tablet PEG SCH ×2 (09:00→20:19)
[2020-10-12] MEDS: aspirin 81mg tab.chew PEG SCH (09:00)
[2020-10-12] MEDS: pioglitazone 15mg tablet PEG SCH (09:00)
[2020-10-12] MEDS: lactobacillus rhamnosus 10,000 MMU CELLS/CAPSULE PEG SCH ×2 (09:00→20:14)
[2020-10-12] MEDS: oxcarbazepine 150mg tablet PEG SCH ×2 (09:00→20:14)
[2020-10-12] MEDS: busPIRone 5mg tablet PEG SCH ×3 (09:01→20:13)
[2020-10-12] MEDS: levoTHYROXINE 25mcg tablet PEG SCH (09:01)
[2020-10-12] MEDS: insulin regular, human U-100 3ml vial - multi-dose SQ SCH ×2 (09:07→20:36)
[2020-10-12] MEDS: acetaminophen 325mg/10.15ml oral unit dose solution PEG PRN (14:05)
[2020-10-12] MEDS: guaiFENesin/DM 10ml UD oral syrup PEG PRN (14:05)
[2020-10-12] MEDS: dextrose 50%-water 50ml dispensing syringe IV PRN (14:28)
[2020-10-12] MEDS: metroNIDAZOLE 500mg tablet PO SCH ×2 (16:27→20:14)
--- NOTE | 2020-10-12 18:56 | NUR ---
Patient in room PCU 3023. I have received report from ELGIN LEO and had the opportunity to ask questions and assume patient care.
[2020-10-12] MEDS: lansoprazole 15mg solutab PEG SCH (20:14)
[2020-10-12] MEDS: atorvastatin 20mg tablet PEG SCH (20:14)
[2020-10-12] MEDS: risperiDONE 0.5mg tablet PEG SCH (20:15)
[2020-10-12] MEDS: insulin glargine (Lantus) pen - multi-dose SQ SCH (21:00)
[2020-10-13] MEDS: PEG 400/HYPROMELLOSE/GLYCERIN 15ml bottle EACHEYE SCH ×6 (00:40→20:00)
[2020-10-13 02:00] VITALS: BP 103/52
[2020-10-13] MEDS: bismuth subsalicylate 262mg/15ml oral suspension PEG SCH ×4 (02:00→21:21)
[2020-10-13] MEDS: diltiazem 30mg tablet PEG SCH ×4 (02:00→20:45)
[2020-10-13] MEDS: albuterol 2.5 MG/3 ML nebule NEB SCH ×4 (02:32→20:27)
--- NOTE | 2020-10-13 03:48 | NUR ---
0200 CARDIZEM AND PEPTO BISMAL GIVEN ORDERED. MEDS WERE SCANNED BUT DID NOT SAVE.
--- NOTE | 2020-10-13 06:00 | NUR ---
Patient in room PCU 3023. I have received report from ANOOP LEO and had the opportunity to ask questions and assume patient care.
--- NOTE | 2020-10-13 06:04 | NUR ---
Problems reprioritized. Patient report given, questions answered & plan of care reviewed with ELGIN RN.
[2020-10-13 06:53] VITALS: BP 101/69
[2020-10-13 07:35] LABS: BASOPHILS % (AUTO) 0.6 % (0-1); EOSINOPHILS # (AUTO) 0.2 X10'3 (0-0.9); HEMATOCRIT 35.1 % (35.0-45.0); HEMOGLOBIN 11.7 g/dl (12.0-16.0); LYMPHOCYTES # (AUTO) 1.2 X10'3 (1.1-4.8); LYMPHOCYTES % (AUTO) 18.4 % (21-51); MEAN CORPUSCULAR HEMOGLOBIN 34.9 PG (27.0-31.0); MEAN CORPUSCULAR HGB CONC 33.5 g/dL (33.0-36.5); MEAN CORPUSCULAR VOLUME 104.1 FL (78-98); MEAN PLATELET VOLUME 7.1 FL (7.4-10.4); MONOCYTES # (AUTO) 0.6 X10'3 (0-0.9); NEUTROPHILS # (AUTO) 4.3 X10'3 (1.8-7.7); PLATELET COUNT 274 X10'3 (140-440); RED BLOOD COUNT 3.37 X10'6 (4.20-5.60); RED CELL DISTRIBUTION WIDTH 15.1 % (11.5-14.5); WHITE BLOOD COUNT 6.3 X10'3 (4.5-11.0)
[2020-10-13 07:52] LABS: ALANINE AMINOTRANSFERASE 13 U/L (12-78); ALBUMIN 2.1 G/DL (3.4-5.0); ALBUMIN/GLOBULIN RATIO 0.5 (1.1-1.5); ALKALINE PHOSPHATASE 44 IU/L (46-116); ANION GAP 6 (8-16); ASPARTATE AMINO TRANSFERASE 6 U/L (10-37); BILIRUBIN,TOTAL 0.3 MG/DL (0.1-1.0); BLOOD UREA NITROGEN 10 MG/DL (7-18); BUN/CREATININE RATIO 18.9 (6.6-38.0); CALCIUM 8.3 MG/DL (8.5-10.1); CHLORIDE 97 MMOL/L (99-107); CREATININE 0.53 MG/DL (0.40-0.90); GLUCOSE 302 MG/DL (70-104); POTASSIUM 4.6 MMOL/L (3.5-5.1); SODIUM 137 MMOL/L (135-145); TOTAL CARBON DIOXIDE 34.1 MMOL/L (24-32); TOTAL PROTEIN 6.6 G/DL (6.4-8.2); eGFR > 90 ML/MIN
[2020-10-13] MEDS: K and/or MAG REPLACEMENT MC SCH ×4 (08:00→20:00)
[2020-10-13] MEDS: sertraline 50mg tablet PEG SCH (08:35)
[2020-10-13] MEDS: levetiracetam 100mg/ml oral solution 5ml UD cup PEG SCH ×2 (08:35→20:46)
[2020-10-13] MEDS: oxcarbazepine 150mg tablet PEG SCH ×2 (08:35→20:47)
[2020-10-13] MEDS: lansoprazole 15mg solutab PEG SCH ×2 (08:35→20:46)
[2020-10-13] MEDS: metoprolol tartrate 25mg tablet PEG SCH ×2 (08:35→20:46)
[2020-10-13] MEDS: aspirin 81mg tab.chew PEG SCH (08:36)
[2020-10-13] MEDS: metroNIDAZOLE 500mg tablet PO SCH ×4 (08:36→22:34)
[2020-10-13] MEDS: busPIRone 5mg tablet PEG SCH ×3 (08:36→22:33)
[2020-10-13] MEDS: mineral oil/petrolatum ophthal oint LEFTEYE SCH ×4 (08:36→21:00)
[2020-10-13] MEDS: pioglitazone 15mg tablet PEG SCH (08:36)
[2020-10-13] MEDS: lactobacillus rhamnosus 10,000 MMU CELLS/CAPSULE PEG SCH ×2 (08:36→20:46)
[2020-10-13] MEDS: heparin, porcine 5000 units/ml vial SQ SCH ×2 (08:37→20:47)
[2020-10-13] MEDS: insulin regular, human U-100 3ml vial - multi-dose SQ SCH ×2 (09:12→21:23)
--- NOTE | 2020-10-13 09:25 | NUR ---
Reassessment: Pt continues tolerating bolus TF at goal rate with GRV WNL. Noted pt now receiving 125 mL water flushes before and after each bolus feed. Serum Na WNL. LBM 10/12 per I&O with PRN bowel care available. Will continue to follow. Rec: 1. Bolus TF via PEG four times a day using Jevity 1.2 with goal rate of 360 mL/bolus. To begin at 110 mL bolus and advance by 50 mL each bolus as tolerated until goal rate is met. Once at goal to provide 1440 mL total volume/day, 1728 kcal, 1166 mL water, and 80 g protein 2. Additional 125 mL water flush before and after each bolus feed per EMR. Monitor serum Na and need to adjust water flushes back to 50 mL water flush before and after each bolus feed 3. PALB q /; daily wts 4. Routine bowel care 5. F/u BSS with ST if planning on advancing PO diet HOME BOLUS TF RECS: 1. Continue with admit recs in view of pt tolerating at goal rate: Bolus feeding via PEG four times a day using Jevity 1.2 or equivalent with goal rate of 360 mL/bolus 2. Additional 50 mL water flush before and after each bolus feed 3. Outpatient RD to adjust TF recommendations as appropriate based on patient's estimated nutrient needs Addendum: 10/13/20 at [address] Amended: Links added.
--- NOTE | 2020-10-13 10:47 | NUR ---
PAGER ID: [phone] MESSAGE: [id number] NATHANAEL SAMMIE PT IS REQUIRING MORE O2, COUGH HAS BECOME MORE WET AND SHE IS MORE SLEEPY THEN USUAL. ELGIN [id number]
[2020-10-13] MEDS: acetaminophen 325mg/10.15ml oral unit dose solution PEG PRN (11:18)
[2020-10-13 11:51] VITALS: BP 114/64
[2020-10-13 15:40] VITALS: BP 119/58
[2020-10-13 18:00] VITALS: BP 129/65
--- NOTE | 2020-10-13 18:15 | NUR ---
Patient in room PCU 3023. I have received report from Lakeshia LEO and had the opportunity to ask questions and assume patient care.
[2020-10-13] MEDS: insulin glargine (Lantus) pen - multi-dose SQ SCH (21:00)
[2020-10-13 22:00] VITALS: BP 112/69
[2020-10-13] MEDS: risperiDONE 0.5mg tablet PEG SCH (22:34)
[2020-10-13] MEDS: atorvastatin 20mg tablet PEG SCH (22:34)
[2020-10-14 02:00] VITALS: BP 119/65
[2020-10-14] MEDS: bismuth subsalicylate 262mg/15ml oral suspension PEG SCH ×4 (02:22→19:30)
[2020-10-14] MEDS: diltiazem 30mg tablet PEG SCH ×4 (02:22→19:30)
[2020-10-14] MEDS: insulin regular, human U-100 3ml vial - multi-dose SQ SCH ×4 (02:41→21:04)
[2020-10-14] MEDS: albuterol 2.5 MG/3 ML nebule NEB SCH ×4 (02:45→20:11)
[2020-10-14] MEDS: PEG 400/HYPROMELLOSE/GLYCERIN 15ml bottle EACHEYE SCH ×6 (04:20→19:31)
[2020-10-14 06:00] VITALS: BP 126/59
--- NOTE | 2020-10-14 06:27 | NUR ---
Problems reprioritized. Patient report given, questions answered & plan of care reviewed with Elda LEO.
[2020-10-14 06:54] LABS: BASOPHILS # (AUTO) 0.1 X10'3 (0-0.2); BASOPHILS % (AUTO) 1.2 % (0-1); EOSINOPHILS # (AUTO) 0.2 X10'3 (0-0.9); EOSINOPHILS % (AUTO) 5.2 % (0-6); HEMATOCRIT 35.7 % (35.0-45.0); HEMOGLOBIN 12.1 g/dl (12.0-16.0); LYMPHOCYTES # (AUTO) 1.3 X10'3 (1.1-4.8); LYMPHOCYTES % (AUTO) 27.2 % (21-51); MEAN CORPUSCULAR HEMOGLOBIN 35.4 PG (27.0-31.0); MEAN CORPUSCULAR HGB CONC 33.9 g/dL (33.0-36.5); MEAN CORPUSCULAR VOLUME 104.2 FL (78-98); MEAN PLATELET VOLUME 7.5 FL (7.4-10.4); MONOCYTES # (AUTO) 0.5 X10'3 (0-0.9); MONOCYTES % (AUTO) 9.8 % (2-12); NEUTROPHILS # (AUTO) 2.6 X10'3 (1.8-7.7); NEUTROPHILS % (AUTO) 56.6 % (42-75); PLATELET COUNT 272 X10'3 (140-440); RED BLOOD COUNT 3.43 X10'6 (4.20-5.60); RED CELL DISTRIBUTION WIDTH 15.3 % (11.5-14.5); WHITE BLOOD COUNT 4.7 X10'3 (4.5-11.0)
[2020-10-14] MEDS: levoTHYROXINE 25mcg tablet PEG SCH (07:00)
[2020-10-14 07:08] LABS: ALANINE AMINOTRANSFERASE 15 U/L (12-78); ALBUMIN/GLOBULIN RATIO 0.4 (1.1-1.5); ALKALINE PHOSPHATASE 43 IU/L (46-116); ANION GAP 2 (8-16); ASPARTATE AMINO TRANSFERASE 9 U/L (10-37); BILIRUBIN,TOTAL 0.3 MG/DL (0.1-1.0); BLOOD UREA NITROGEN 9 MG/DL (7-18); BUN/CREATININE RATIO 16.1 (6.6-38.0); CALCIUM 8.8 MG/DL (8.5-10.1); CHLORIDE 98 MMOL/L (99-107); CREATININE 0.56 MG/DL (0.40-0.90); GLUCOSE 302 MG/DL (70-104); POTASSIUM 4.4 MMOL/L (3.5-5.1); SODIUM 136 MMOL/L (135-145); TOTAL PROTEIN 6.6 G/DL (6.4-8.2); eGFR > 90 ML/MIN
[2020-10-14] MEDS: K and/or MAG REPLACEMENT MC SCH ×4 (08:00→20:00)
[2020-10-14] MEDS: levetiracetam 100mg/ml oral solution 5ml UD cup PEG SCH ×2 (08:18→19:30)
[2020-10-14] MEDS: sertraline 50mg tablet PEG SCH (08:18)
[2020-10-14] MEDS: lactobacillus rhamnosus 10,000 MMU CELLS/CAPSULE PEG SCH ×2 (08:18→19:29)
[2020-10-14] MEDS: metoprolol tartrate 25mg tablet PEG SCH ×2 (08:18→19:29)
[2020-10-14] MEDS: aspirin 81mg tab.chew PEG SCH (08:18)
[2020-10-14] MEDS: pioglitazone 15mg tablet PEG SCH (08:18)
[2020-10-14] MEDS: metroNIDAZOLE 500mg tablet PO SCH ×4 (08:18→22:15)
[2020-10-14] MEDS: lansoprazole 15mg solutab PEG SCH ×2 (08:18→19:29)
[2020-10-14] MEDS: mineral oil/petrolatum ophthal oint LEFTEYE SCH ×4 (08:19→21:00)
[2020-10-14] MEDS: oxcarbazepine 150mg tablet PEG SCH ×2 (08:19→19:29)
[2020-10-14] MEDS: busPIRone 5mg tablet PEG SCH ×3 (08:19→22:15)
[2020-10-14] MEDS: heparin, porcine 5000 units/ml vial SQ SCH ×2 (08:20→19:30)
[2020-10-14 11:00] VITALS: BP 115/62
[2020-10-14 15:00] VITALS: BP 105/69
[2020-10-14 18:00] VITALS: BP 98/69
--- NOTE | 2020-10-14 18:15 | NUR ---
Patient in room PCU 3023. I have received report from Elda LEO and had the opportunity to ask questions and assume patient care.
[2020-10-14] MEDS: insulin glargine (Lantus) pen - multi-dose SQ SCH (21:00)
--- NOTE | 2020-10-14 21:00 | NUR ---
Was told to hold Lantus from day shift b/c pt is sensitive to insulin. Will advise day shift to clarify order with provider.
[2020-10-14 22:00] VITALS: BP 110/54
[2020-10-14] MEDS: risperiDONE 0.5mg tablet PEG SCH (22:15)
[2020-10-14] MEDS: atorvastatin 20mg tablet PEG SCH (22:15)
[2020-10-15] MEDS: diltiazem 30mg tablet PEG SCH ×4 (01:59→20:28)
[2020-10-15 02:00] VITALS: BP 131/59
[2020-10-15] MEDS: bismuth subsalicylate 262mg/15ml oral suspension PEG SCH ×2 (02:00→08:38)
[2020-10-15] MEDS: albuterol 2.5 MG/3 ML nebule NEB SCH ×4 (02:22→21:20)
[2020-10-15] MEDS: insulin regular, human U-100 3ml vial - multi-dose SQ SCH ×4 (02:23→20:39)
[2020-10-15] MEDS: PEG 400/HYPROMELLOSE/GLYCERIN 15ml bottle EACHEYE SCH ×6 (04:00→20:30)
--- NOTE | 2020-10-15 06:16 | NUR ---
Problems reprioritized. Patient report given, questions answered & plan of care reviewed with Rachael LEO.
[2020-10-15 06:20] LABS: BASOPHILS % (AUTO) 0.8 % (0-1); EOSINOPHILS # (AUTO) 0.2 X10'3 (0-0.9); EOSINOPHILS % (AUTO) 2.8 % (0-6); HEMATOCRIT 36.4 % (35.0-45.0); HEMOGLOBIN 12.2 g/dl (12.0-16.0); LYMPHOCYTES % (AUTO) 18.8 % (21-51); MEAN CORPUSCULAR HEMOGLOBIN 34.9 PG (27.0-31.0); MEAN CORPUSCULAR HGB CONC 33.6 g/dL (33.0-36.5); MEAN CORPUSCULAR VOLUME 103.8 FL (78-98); MEAN PLATELET VOLUME 7.1 FL (7.4-10.4); MONOCYTES # (AUTO) 0.6 X10'3 (0-0.9); MONOCYTES % (AUTO) 10.9 % (2-12); NEUTROPHILS # (AUTO) 3.6 X10'3 (1.8-7.7); NEUTROPHILS % (AUTO) 66.7 % (42-75); PLATELET COUNT 275 X10'3 (140-440); RED BLOOD COUNT 3.51 X10'6 (4.20-5.60); RED CELL DISTRIBUTION WIDTH 15.1 % (11.5-14.5); WHITE BLOOD COUNT 5.4 X10'3 (4.5-11.0)
[2020-10-15 06:33] LABS: ALBUMIN 2.1 G/DL (3.4-5.0); ANION GAP 4 (8-16); BILIRUBIN,TOTAL 0.2 MG/DL (0.1-1.0); BLOOD UREA NITROGEN 11 MG/DL (7-18); CALCIUM 8.4 MG/DL (8.5-10.1); CHLORIDE 98 MMOL/L (99-107); CREATININE 0.61 MG/DL (0.40-0.90); GLUCOSE 361 MG/DL (70-104); POTASSIUM 4.6 MMOL/L (3.5-5.1); SODIUM 136 MMOL/L (135-145); TOTAL CARBON DIOXIDE 34.2 MMOL/L (24-32); TOTAL PROTEIN 6.5 G/DL (6.4-8.2); eGFR > 90 ML/MIN
[2020-10-15 06:34] LABS: ALANINE AMINOTRANSFERASE 13 U/L (12-78); ALBUMIN/GLOBULIN RATIO 0.5 (1.1-1.5); ALKALINE PHOSPHATASE 45 IU/L (46-116); ASPARTATE AMINO TRANSFERASE 11 U/L (10-37); PREALBUMIN 16.6 MG/DL (19-36)
[2020-10-15 07:00] VITALS: BP 129/60
[2020-10-15] MEDS: K and/or MAG REPLACEMENT MC SCH ×4 (08:00→20:00)
[2020-10-15] MEDS: mineral oil/petrolatum ophthal oint LEFTEYE SCH ×4 (08:35→20:30)
[2020-10-15] MEDS: pioglitazone 15mg tablet PEG SCH (08:36)
[2020-10-15] MEDS: busPIRone 5mg tablet PEG SCH ×3 (08:36→20:29)
[2020-10-15] MEDS: lactobacillus rhamnosus 10,000 MMU CELLS/CAPSULE PEG SCH ×2 (08:36→20:28)
[2020-10-15] MEDS: levetiracetam 100mg/ml oral solution 5ml UD cup PEG SCH ×2 (08:37→20:27)
[2020-10-15] MEDS: metoprolol tartrate 25mg tablet PEG SCH ×2 (08:37→20:29)
[2020-10-15] MEDS: oxcarbazepine 150mg tablet PEG SCH ×2 (08:38→20:27)
[2020-10-15] MEDS: lansoprazole 15mg solutab PEG SCH ×2 (08:38→20:28)
[2020-10-15] MEDS: sertraline 50mg tablet PEG SCH (08:38)
[2020-10-15] MEDS: heparin, porcine 5000 units/ml vial SQ SCH ×2 (08:39→20:30)
[2020-10-15] MEDS: metroNIDAZOLE 500mg tablet PO SCH ×4 (08:39→20:29)
[2020-10-15] MEDS: aspirin 81mg tab.chew PEG SCH (08:39)
[2020-10-15 11:00] VITALS: BP 129/87
[2020-10-15 15:00] VITALS: BP 102/55
[2020-10-15 18:00] VITALS: BP 118/61
--- NOTE | 2020-10-15 18:31 | NUR ---
Patient in room PCU 3026W. I have received report from FELIPA Cano and had the opportunity to ask questions and assume patient care.
--- NOTE | 2020-10-15 18:32 | NUR ---
Problems reprioritized. Patient report given, questions answered & plan of care reviewed with Lindy LEO.
[2020-10-15] MEDS: risperiDONE 0.5mg tablet PEG SCH (20:29)
[2020-10-15] MEDS: atorvastatin 20mg tablet PEG SCH (20:29)
[2020-10-15] MEDS: insulin glargine (Lantus) pen - multi-dose SQ SCH (20:41)
[2020-10-16] MEDS: PEG 400/HYPROMELLOSE/GLYCERIN 15ml bottle EACHEYE SCH ×7 (00:30→23:46)
[2020-10-16 02:00] VITALS: BP 105/56
[2020-10-16] MEDS: diltiazem 30mg tablet PEG SCH ×4 (02:00→21:39)
[2020-10-16] MEDS: albuterol 2.5 MG/3 ML nebule NEB SCH ×4 (02:45→21:00)
[2020-10-16] MEDS: insulin regular, human U-100 3ml vial - multi-dose SQ SCH ×4 (02:51→21:51)
[2020-10-16 06:00] VITALS: BP 126/57
--- NOTE | 2020-10-16 06:11 | NUR ---
Problems reprioritized. Patient report given, questions answered & plan of care reviewed with FELIPA Cano.
[2020-10-16 06:28] LABS: BASOPHILS # (AUTO) 0.1 X10'3 (0-0.2); BASOPHILS % (AUTO) 0.9 % (0-1); EOSINOPHILS # (AUTO) 0.3 X10'3 (0-0.9); EOSINOPHILS % (AUTO) 5.3 % (0-6); HEMATOCRIT 37.9 % (35.0-45.0); HEMOGLOBIN 12.6 g/dl (12.0-16.0); LYMPHOCYTES # (AUTO) 1.3 X10'3 (1.1-4.8); MEAN CORPUSCULAR HEMOGLOBIN 34.8 PG (27.0-31.0); MEAN CORPUSCULAR HGB CONC 33.2 g/dL (33.0-36.5); MEAN CORPUSCULAR VOLUME 104.9 FL (78-98); MEAN PLATELET VOLUME 7.2 FL (7.4-10.4); MONOCYTES # (AUTO) 0.6 X10'3 (0-0.9); NEUTROPHILS # (AUTO) 3.4 X10'3 (1.8-7.7); NEUTROPHILS % (AUTO) 60.8 % (42-75); PLATELET COUNT 293 X10'3 (140-440); RED BLOOD COUNT 3.61 X10'6 (4.20-5.60); WHITE BLOOD COUNT 5.6 X10'3 (4.5-11.0)
[2020-10-16 06:56] LABS: ALANINE AMINOTRANSFERASE 13 U/L (12-78); ALBUMIN 2.2 G/DL (3.4-5.0); ALBUMIN/GLOBULIN RATIO 0.5 (1.1-1.5); ALKALINE PHOSPHATASE 47 IU/L (46-116); ANION GAP 6 (8-16); ASPARTATE AMINO TRANSFERASE 10 U/L (10-37); BILIRUBIN,TOTAL 0.3 MG/DL (0.1-1.0); BLOOD UREA NITROGEN 14 MG/DL (7-18); BUN/CREATININE RATIO 26.9 (6.6-38.0); CALCIUM 9.1 MG/DL (8.5-10.1); CHLORIDE 98 MMOL/L (99-107); CREATININE 0.52 MG/DL (0.40-0.90); GLUCOSE 177 MG/DL (70-104); POTASSIUM 4.2 MMOL/L (3.5-5.1); SODIUM 139 MMOL/L (135-145); TOTAL CARBON DIOXIDE 35.1 MMOL/L (24-32); TOTAL PROTEIN 6.7 G/DL (6.4-8.2); eGFR > 90 ML/MIN
[2020-10-16] MEDS: K and/or MAG REPLACEMENT MC SCH ×4 (08:00→20:00)
[2020-10-16] MEDS: heparin, porcine 5000 units/ml vial SQ SCH ×3 (08:00→20:46)
[2020-10-16] MEDS: levoTHYROXINE 25mcg tablet PEG SCH (08:29)
[2020-10-16] MEDS: mineral oil/petrolatum ophthal oint LEFTEYE SCH ×4 (08:30→20:48)
[2020-10-16] MEDS: pioglitazone 15mg tablet PEG SCH (08:30)
[2020-10-16] MEDS: lactobacillus rhamnosus 10,000 MMU CELLS/CAPSULE PEG SCH ×2 (08:31→21:38)
[2020-10-16] MEDS: busPIRone 5mg tablet PEG SCH ×3 (08:31→21:39)
[2020-10-16] MEDS: levetiracetam 100mg/ml oral solution 5ml UD cup PEG SCH ×2 (08:31→21:39)
[2020-10-16] MEDS: sertraline 50mg tablet PEG SCH (08:32)
[2020-10-16] MEDS: metoprolol tartrate 25mg tablet PEG SCH ×2 (08:32→21:38)
[2020-10-16] MEDS: oxcarbazepine 150mg tablet PEG SCH ×2 (08:32→21:37)
[2020-10-16] MEDS: lansoprazole 15mg solutab PEG SCH ×2 (08:32→21:38)
[2020-10-16] MEDS: aspirin 81mg tab.chew PEG SCH (08:33)
[2020-10-16] MEDS ORDERED: INSU100V30 SQ (09:44)
[2020-10-16] MEDS ORDERED: LOP25T PEG (09:44)
[2020-10-16] MEDS ORDERED: ALBU2.5V7 NEB (09:44)
[2020-10-16] MEDS ORDERED: ASPI81TA53 PEG (09:44)
[2020-10-16] MEDS ORDERED: DILT30TA2 PEG (09:44)
[2020-10-16] MEDS ORDERED: LEVE500S9 PEG (09:44)
[2020-10-16 11:00] VITALS: BP 124/63
[2020-10-16 15:00] VITALS: BP 121/65
--- NOTE | 2020-10-16 18:22 | NUR ---
Problems reprioritized. Patient report given, questions answered & plan of care reviewed with Mildred LEO.
--- NOTE | 2020-10-16 18:30 | NUR ---
Patient in room PCU 3023. I have received report from VICKI LEO and had the opportunity to ask questions and assume patient care.
[2020-10-16 19:00] VITALS: BP 138/61
[2020-10-16] MEDS: atorvastatin 20mg tablet PEG SCH (21:39)
[2020-10-16] MEDS: risperiDONE 0.5mg tablet PEG SCH (21:39)
[2020-10-16] MEDS: insulin glargine (Lantus) pen - multi-dose SQ SCH (21:52)
[2020-10-16 23:00] VITALS: BP 128/67
[2020-10-17] MEDS: insulin regular, human U-100 3ml vial - multi-dose SQ SCH ×2 (02:57→09:20)
[2020-10-17 03:00] VITALS: BP 140/62
[2020-10-17] MEDS: diltiazem 30mg tablet PEG SCH ×2 (03:01→09:10)
[2020-10-17] MEDS: PEG 400/HYPROMELLOSE/GLYCERIN 15ml bottle EACHEYE SCH ×2 (03:03→09:10)
[2020-10-17] MEDS: albuterol 2.5 MG/3 ML nebule NEB SCH ×2 (04:28→08:04)
[2020-10-17 06:11] LABS: BASOPHILS % (AUTO) 0.7 % (0-1); EOSINOPHILS # (AUTO) 0.2 X10'3 (0-0.9); EOSINOPHILS % (AUTO) 4.4 % (0-6); HEMATOCRIT 37.6 % (35.0-45.0); HEMOGLOBIN 12.7 g/dl (12.0-16.0); LYMPHOCYTES # (AUTO) 1.5 X10'3 (1.1-4.8); LYMPHOCYTES % (AUTO) 29.9 % (21-51); MEAN CORPUSCULAR HEMOGLOBIN 35.2 PG (27.0-31.0); MEAN CORPUSCULAR HGB CONC 33.7 g/dL (33.0-36.5); MEAN CORPUSCULAR VOLUME 104.2 FL (78-98); MEAN PLATELET VOLUME 7.4 FL (7.4-10.4); MONOCYTES # (AUTO) 0.5 X10'3 (0-0.9); MONOCYTES % (AUTO) 9.1 % (2-12); NEUTROPHILS # (AUTO) 2.9 X10'3 (1.8-7.7); NEUTROPHILS % (AUTO) 55.9 % (42-75); PLATELET COUNT 299 X10'3 (140-440); RED CELL DISTRIBUTION WIDTH 15.2 % (11.5-14.5); WHITE BLOOD COUNT 5.1 X10'3 (4.5-11.0)
--- NOTE | 2020-10-17 06:26 | NUR ---
Problems reprioritized. Patient report given, questions answered & plan of care reviewed with VICKI LEO.
[2020-10-17 06:38] LABS: ALANINE AMINOTRANSFERASE 18 U/L (12-78); ALBUMIN 2.4 G/DL (3.4-5.0); ALBUMIN/GLOBULIN RATIO 0.5 (1.1-1.5); ALKALINE PHOSPHATASE 51 IU/L (46-116); ASPARTATE AMINO TRANSFERASE 14 U/L (10-37); BILIRUBIN,TOTAL 0.2 MG/DL (0.1-1.0); BLOOD UREA NITROGEN 11 MG/DL (7-18); BUN/CREATININE RATIO 22.9 (6.6-38.0); CALCIUM 9.2 MG/DL (8.5-10.1); CREATININE 0.48 MG/DL (0.40-0.90); GLUCOSE 193 MG/DL (70-104); TOTAL CARBON DIOXIDE 35.3 MMOL/L (24-32); eGFR > 90 ML/MIN
[2020-10-17 06:55] LABS: ANION GAP 6 (8-16); CHLORIDE 98 MMOL/L (99-107); POTASSIUM 4.3 MMOL/L (3.5-5.1); SODIUM 139 MMOL/L (135-145)
[2020-10-17 07:00] VITALS: BP 105/65
[2020-10-17] MEDS: pioglitazone 15mg tablet PEG SCH (09:10)
[2020-10-17] MEDS: busPIRone 5mg tablet PEG SCH (09:10)
[2020-10-17] MEDS: mineral oil/petrolatum ophthal oint LEFTEYE SCH (09:10)
[2020-10-17 09:11] VITALS: BP_SYST 126
[2020-10-17] MEDS: lansoprazole 15mg solutab PEG SCH (09:11)
[2020-10-17] MEDS: sertraline 50mg tablet PEG SCH (09:11)
[2020-10-17] MEDS: lactobacillus rhamnosus 10,000 MMU CELLS/CAPSULE PEG SCH (09:11)
[2020-10-17] MEDS: aspirin 81mg tab.chew PEG SCH (09:11)
[2020-10-17] MEDS: metoprolol tartrate 25mg tablet PEG SCH (09:11)
[2020-10-17] MEDS: levetiracetam 100mg/ml oral solution 5ml UD cup PEG SCH (09:12)
[2020-10-17] MEDS: oxcarbazepine 150mg tablet PEG SCH (09:12)
[2020-10-17] MEDS: heparin, porcine 5000 units/ml vial SQ SCH (09:13)
--- NOTE | 2020-10-17 09:50 | NUR ---
Called [facility] to give report and was told they would give me a call back.
--- NOTE | 2020-10-17 11:04 | NUR ---
REport given to Nevin LEO at [facility]
--- NOTE | 2020-10-17 12:25 | NUR ---
[facility] . Patient belongings were sent with her. Patient was stable at time of d/c. SHe was given tube feed and all meds before she left.
== END 2020-10-17 10:30 | DRG 137 ==
LOC: ER 20:42 → ED HOLD 09-19 00:01 → PCU 3S 09-19 01:20
PROVIDERS: ADMIT Family Medicine; ATTEND Family Medicine
PROC: 5A0945A Assistance with Respiratory Ventilation, 24-96 Consecutive Hours, High Flow/Velocity Cannula (ICD-10-PCS; 2020-09-19)
PROC: B32T1ZZ Computerized Tomography (CT Scan) of Left Pulmonary Artery using Low Osmolar Contrast (ICD-10-PCS; 2020-09-20)
PROC: B3201ZZ Computerized Tomography (CT Scan) of Thoracic Aorta using Low Osmolar Contrast (ICD-10-PCS; 2020-09-20)
PROC: B32S1ZZ Computerized Tomography (CT Scan) of Right Pulmonary Artery using Low Osmolar Contrast (ICD-10-PCS; 2020-09-20)
PROC: 0DH63UZ Insertion of Feeding Device into Stomach, Percutaneous Approach (ICD-10-PCS; principal; 2020-09-26)
PROC: BD12YZZ Fluoroscopy of Stomach using Other Contrast (ICD-10-PCS; 2020-09-26)
PROC: 5A0935A Assistance with Respiratory Ventilation, Less than 24 Consecutive Hours, High Flow/Velocity Cannula (ICD-10-PCS; 2020-10-13)
DX: J69.0 Pneumonitis due to inhalation of food and vomit (principal); J96.01 Acute respiratory failure with hypoxia; L89.159 Pressure ulcer of sacral region, unspecified stage; E11.41 Type 2 diabetes mellitus with diabetic mononeuropathy; B37.0 Candidal stomatitis; E87.0 Hyperosmolality and hypernatremia; R13.12 Dysphagia, oropharyngeal phase; R64 Cachexia; E83.39 Other disorders of phosphorus metabolism; T17.908A Unspecified foreign body in respiratory tract, part unspecified causing other injury, initial encounter; E03.9 Hypothyroidism, unspecified; E78.5 Hyperlipidemia, unspecified; E86.0 Dehydration; E87.6 Hypokalemia; F29 Unspecified psychosis not due to a substance or known physiological condition; F31.9 Bipolar disorder, unspecified; L53.9 Erythematous condition, unspecified; R29.707 NIHSS score 7; Z20.822 Contact with and (suspected) exposure to COVID-19; R00.0 Tachycardia, unspecified; F41.1 Generalized anxiety disorder; K29.70 Gastritis, unspecified, without bleeding; X58.XXXA Exposure to other specified factors, initial encounter; T36.0X5A Adverse effect of penicillins, initial encounter; R19.7 Diarrhea, unspecified; Z79.4 Long term (current) use of insulin; Z79.82 Long term (current) use of aspirin; Z79.890 Hormone replacement therapy; Z79.899 Other long term (current) drug therapy; I69.392 Facial weakness following cerebral infarction; Z88.2 Allergy status to sulfonamides; B96.81 Helicobacter pylori [H. pylori] as the cause of diseases classified elsewhere; Z68.1 Body mass index [BMI] 19.9 or less, adult; Y93.89 Activity, other specified; Y92.89 Other specified places as the place of occurrence of the external cause; Y99.8 Other external cause status
CPT/HCPCS: 36415; 36600; 49440; 70450; 70544; 70551; 71045; 71275; 74018; 74176; 80048; 80053; 80061; 81001; 81025; 82803; 82948; 83036; 83605; 83735; 84100; 84132; 84134; 84145; 84443; 85007; 85018; 85025; 86677; 87040; 87081; 87324; 87449; 87635; 92508; 92616; 93005; 93306; 94640; 94760; 96360; 96361; 97110; 97116; 97161; 97162; 97530; 97535; 99152; 99153; 99285; B4087; C1713; C9113; G0378; J1200; J1610; J1644; J1815; J1940; J1953; J1956; J2060; J2250; J2405; J2543; J2920; J3010; J3360; J3480; J3490; J7030; J7040; Q9963; Q9967